=== PATIENT | male | born 1990 | race Caucasian/White ===

== ENCOUNTER 2023-10-05 13:45 | Emergency (ER) | payer OTHER, SELFPAY ==
[2023-10-05 13:50] VITALS: BP 158/64; PULSE 101; RESP 16; TEMP 36.4; O2SAT 98
--- OUTSIDE RECORDS SUMMARY | 2023-10-05 14:46 | XMS_ITS | Encounter Summary ---
Author Name [facility] [place] [facility] [place] [facility] [place] Address [address] [place] [address] Care Team Providers Care Alcoholism Worker Name Role Phone LAYTON GARCIA Primary Care Provider Unavailabl e Insurance Providers: All historical and current Section Date Range: From patient's date of to the date document was created. This section includes the names of all active insurance providers for the patient. Insurance Provider Type of Coverage Plan Name Start of Policy Coverage End of Policy Coverage Group Number Member ID Insurance Provider's Telephone Number Policy Senior's Name Patient's Relationship to Policy Senior IS[employer] MED[employer] EXPENSE (OPT/PROF ) F.W. ROBLEDO [place] Dec 18, 2020 [id number] [phone] CLAYTONTAZ PATIENT [employer] MENTAL HEALTH F.W. ROBL[place] Dec 18, 2020 [id number] CLAYTONTAZ PATIENT [employer] PRESCRIPT ION RX Dec 18, 2020 [id number] [phone] CLAYTONTAZ PATIENT Selected Encounter This section includes the information on record at [place] for the Encounter. Date/Time Encounter Type Encounter Description Reason Provider Source Sep 27, 2023 02:08 PM Outpatient Encounter [facility] KWAN DAHL IHParrish Encounter Template Text not used by [place] Plan of Treatment: Future Appointments (+ 6 months) and Future Tests (+/- 45 days) The Plan of Treatment section includes future care activities for the patient from all [place] treatmentfacilities. This section includes future appointments and future orders which are active, pending or scheduled. Future Appointments This section includes appointments that were scheduled to occur 6 months from the date of the Encounter, up to a maximum of 20 appointments. The data comes from all [place] treatment facilities. Appointment Date/Time Appointment Type Appointme nt Facility Name Dec 06, 2023 02:00 PM AMBULATORY - MEDICINE [facility] Active, Pending, and Scheduled Orders This section includes a listing of several types of active, pending, and scheduled orders, including clinic medications orders, diagnostic test orders, procedure orders and consult orders; where the start date of the order is 45 days before the date of the Encounter or 45 days after the date of theEncounter. The data comes from all [place] treatment facilities. Test Date/Time Test Type Test Details Facility Name Sep 18, 2023 12:00 AM Laboratory - Chemi stry Order LIVER PROFILE LT GREEN(LI HEP) PLASMA SP [facility] Encounter Notes: All associated encounter notes This section contains the clinical notes associated to the Encounter. Date/Time Encounter Note(s) Provider Source Sep 27, 2023 02:08 PM MENTAL HEALTH DIAG NOSTIC STUDY NOTE: LOCAL TITLE: Mental Health Diagnostic Study Note STANDARD TITLE: MENTAL HEALTH DIAGNOSTIC STUDY NOTE DATE OF NOTE: SEP 27, 2023@14:08:18 ENTRY DATE: SEP 27, 2023@14:08:18 AUTHOR: KWAN POSADAS EXP COSIGNER: URGENCY: STATUS: COMPLETED Generalized Anxiety Disorder, 7 items Date Given: 09/27/2023 Clinician: Kwan Posadas Location: [place] [address] [place]: Taz Collins SSN: [id number] : [birth year] (32) Gender: Man ALEX-7 score: 8 A low score indicates the absence of anxiety, a high score indicates the presence of anxiety symptoms; the range is 0 to 21. A score of 15 or greater is considered clinically significant, meriting active treatment for anxiety. A score of 10 to 14 indicates a condition that should be carefully evaluated. Questions and Answers 1. Feeling nervous, anxious or on edge Several days 2. Not being able to stop or control worrying Not at all 3. Worrying too much about different things Not at all 4. Trouble relaxing Nearly every day 5. Being so restless that it is hard to sit still Several days 6. Becoming easily annoyed or irritable Nearly every day 7. Feeling afraid as if something awful might happen Not at all Information contained in this note is based on a self-report assessment and is not sufficient to use alone for diagnostic purposes. Assessment results should be verified for accuracy and used in conjunction with other diagnostic activities and procedures. /karla/ CHILO VIVAS Corner Cutter Machine Operator Signed: 09/27/2023 14:08 KWAN POSADAS [facility]
--- OUTSIDE RECORDS SUMMARY | 2023-10-05 14:46 | XMS_ITS | Encounter Summary ---
Author Name [facility] [place] [facility] [place] [facility] [place] Address [address] [place] [address] Care Team Providers Care Medical Donation Professional Name Role Phone LAYTON GARCIA Primary Care [...] MEDICAL EXPENSE (OPT/PROF ) F.W. [place] Dec 18, 2020 [id number] CLAYTONTAZ PATIENT [employer] MENTAL HEALTH [place]. [place] Dec 18, 2020 [id number] [phone] TAZ ARNOLD PATIENT [employer] PRESCRIPT ION RX Dec 18, 2020 [id number] TAZ ARNOLD PATIENT Selected Encounter This section includes the information on record at [place] for the Encounter. Date/Time Encounter Type Encounter Description Reason Pro vider Source August 07, 2023 09:30 AM Outpatient Encounter [facility] INDIV IHE Encounter Template Text not used by [facility] Plan of Treatment: Future Appointments (+ 6 months) and Future Tests (+/- 45 days) The Plan of Treatment section includes future care activities for the patient [facility] [place] [facility] This section includes future appointments and future orders which are active, pending or scheduled. Future Appointments This section includes appointments that were scheduled to occur 6 months from the date of the Encounter, up to a maximum of 20 appointments. The data comes from all [place] treatment facilities. Appointment Date/Time Appointment Type Appointme nt Facility Name August 18, 2023 09:00 AM [facility] Sep 04, 2023 01:00 PM AMBULATORY - PSYCHIATRY [facility] Sep 27, 2023 10:00 AM AMBULATORY - MEDICINE [facility] Sep 27, 2023 02:00 PM AMBULATORY - PSYCHIATRY [facility] Dec 06, 2023 02:00 PM AMBULATORY - MEDICINE [facility] Active, Pending, and Scheduled Orders This section includes a listing of several types of active, pending, and scheduled orders, including clinic medications orders, diagnostic test orders, procedure orders and consult orders; where the start date of the order is 45 days before the date of the Encounter or 45 days after the date of theEncounter. The data comes from all [facility]. Test Date/Time Test Type Test Details Facility Name Sep 18, 2023 12:00 AM Laboratory - Chemi stry Order LIVER PROFILE LT GREEN(LI HEP) PLASMA SP [facility] Lab Results: +/- 30 days of the encounter This section includes the Chemistry and Hematology Lab Results on record with [facility] for the patient. Radiology Reports and Pathology Reports are provided separately, in subsequent sections. Lab Results This section contains the Chemistry/Hematology Results that were resulted 30 days before or 30 daysafter the date of the Encounter. Date/Time Source Result Type Result - Unit Interpretation Reference Range Comment Jul 11, 2023 10:00 AM [facility] HEP B CORE,TOTAL(W) Specimen Type: SERUM Comment: A 'Reactive' result indicates HBsAb results >/= 12.0 mIU/mL and immunity to HBV infection. This test detects both IgG and IgM antibodies. A Reactive result (Positive prior to 12/31/12) may indicate either current or previous hepatitis B infection. Antibodies to Hepatitis B Core may be the only marker of recent hepatitis B infection during the window period when Hepatitis B surface antigen has disappeared and Hepatitis B surface antibodies are not yet detectable. Ordering Provider: LAYTON GARCIA Report Released Date/Time: Jun 26, 2023 11:56 AM Reporting Lab: [facility] [address] [facility] [address] Performing Lab: [facility] [address] [facility] [address] HEP B CORE,TOTAL(W ) Non Reactive Non Reactive Jul 11, 2023 10:00 AM [facility] HBSAG PANEL WITH REFLEX CONFIRMATION(WH) Specimen Typ e: SERUM Comment: A Reactive result (Positive prior to 12/31/12) is diagnostic of acute or chronic hepatitis B infection. The presence of Hepatitis B surface antigen is frequently associated with infectivity. Ordering Provider: LAYTON GARCIA Report Released Date/Time: Jun 26, 2023 11:56 AM Reporting Lab: [facility] [address] [address] Performing Lab: [facility] [address] [facility] [address] HEP B SURFACE AG(wh) Non Reactive Non Reactive Jul 11, 2023 10:00 AM [facility] HEP B SURF AB(W) Specimen Type: SERUM Comment: A 'Reactive' result indicates HBsAb results >/= 12.0 mIU/mL and immunity to HBV infection. This test detects both IgG and IgM antibodies. A Reactive result (Positive prior to 12/31/12) may indicate either current or previous hepatitis B infection. Antibodies to Hepatitis B Core may be the only marker of recent hepatitis B infection during the window period when Hepatitis B surface antigen has disappeared and Hepatitis B surface antibodies are not yet detectable. Ordering Provider: LAYTON GARCIA Report Released Date/Time: Jun 26, 2023 11:56 AM Reporting Lab: [facility] [address] [facility] [address] Performing Lab: [facility] [address] [facility] [address] HEP B SURF AB(W) REACTIVE Non Reactive Jul 11, 2023 10:00 AM [facility] HEPATITIS C AB(WRJ)w/Reflex Specimen Type: SERUM Comment: , Tests performed on Curtis Teros Alfaro [id number] (405) No HCV antibody detected. If recent infection is suspected or other evidence suggests HCV infection, consider HCV RNA testing Ordering Provider: LAYTON GARCIA Report Released Date/Time: Jun 26, 2023 11:56 AM Reporting Lab: [facility] [address] [facility] [address] Performing Lab: [facility] [address] [address] HEPATITIS C AB(WRJ)w/Ref ria Non-Reactive Non-Reactive Jul 11, 2023 10:00 AM [facility] IRON+TIBC(P) Specimen Type: PLASMA Comment: , Tests performed on [employer] [id number] (405). Ordering Provider: LAYTON GARCIA Report Released Date/Time: Jun 26, 2023 11:56 AM Reporting Lab: [facility] [address] [address] Performing [facility] [address] [facility] [address] IRON 90 ug/dL 40-160 TIBC 318 ug/dL IRON SATURATION(P ) 28 >15 UIBC(P) 228 ug/dL 126-382 Encounter Notes: All associated encounter notes This section contains the clinical notes associated to the Encounter. Date/Time Encounter Note(s) Provider Source August 07, 2023 09:30 AM MENTAL HEALTH ADMI NISTRATIVE NOTE: LOCAL TITLE: Administrative Note/Mental Health STANDARD TITLE: MENTAL HEALTH ADMINISTRATIVE NOTE DATE OF NOTE: AUGUST 07, 2023@09:30 ENTRY DATE: AUGUST 07, 2023@09:30:48 AUTHOR: KWAN SALOMON EXP COSIGNER: URGENCY: STATUS: COMPLETED Spoke to Greer over phone. He apologized for missing appt last week on 08/03. We rescheduled psychotherapy appt for 08/17 at 9am. No safety concerns noted based on brief t/c. /karla/ CHILO VIVAS Pharmacy Innovation Assistant Signed: 08/07/2023 09:31 KWAN SALOMON [facility]
--- OUTSIDE RECORDS SUMMARY | 2023-10-05 14:46 | XMS_ITS ---
Author Name [facility] [place] [facility] [place] [facility] [place] Address [address] [place] [address] Care Team Providers Care [employer] Equipment Operator Name Role Phone LAYTON GARCIA Primary Care [...] Senior's Name Patient's Relationship to Policy Senior [employer] (OPT/PROF ) F.W. ROBLEDO [place] Dec 18, 2020 [id number] TAZ ARNOLD PATIENT [employer] MENTAL HEALTH F.W. [place] Dec 18, 2020 [id number] TAZ ARNOLD PATIENT [employer] PRESCRIPT ION RX Dec 18, 2020 [id number] TAZ ARNOLD PATIENT Selected Encounter This section includes the information on record at [place] for the Encounter. Date/Time Encounter Type Encounter Description Reason Pro vider Source Oct 02, 2023 12:58 PM Outpatient Encounter ADMIN PAT ACTIVTIES (MASNONCT) IHE Encounter Template Text not used by [place] Plan of Treatment: Future Appointments (+ 6 months) and Future Tests (+/- 45 days) The Plan of Treatment section includes future care activities for the patient from all [place] [facility]. This section includes future appointments and future orders which are active, pending or scheduled. Future Appointments This section includes appointments that were scheduled to occur 6 months from the date of the Encounter, up to a maximum of 20 appointments. The data comes from all [place] treatment facilities. Appointment Date/Time Appointment Type Appointme nt Facility Name Dec 06, 2023 02:00 PM AMBULATORY - MEDICINE [facility] Active, Pending, and Scheduled Orders This section includes a listing of several types of active, pending, and scheduled orders, including clinic medications orders, diagnostic test orders, procedure orders and consult orders; where the start date of the order is 45 days before the date of the Encounter or 45 days after the date of theEncounter. The data comes from all [place] treatment facilities. Test Date/Time Test Type Test Details Facility Name Sep 18, 2023 12:00 AM Laboratory - Chemi stry Order LIVER PROFILE LT GREEN(LI HEP) PLASMA SP [facility] Encounter Notes: All associated encounter notes This section contains the clinical notes associated to the Encounter. Date/Time Encounter Note(s) Provider Source Oct 02, 2023 12:58 PM ADMINISTRATIVE NOT E: LOCAL TITLE: CCC: SCHEDULING ADMINISTRATION STANDARD TITLE: ADMINISTRATIVE NOTE DATE OF NOTE: OCT 02, 2023@12:58:45 ENTRY DATE: OCT 02, 2023@12:58:45 AUTHOR: PRABHJOT LYNNE COSIGNER: URGENCY: STATUS: COMPLETED CCC: SCHEDULING ADMINISTRATION Has ADDENDA Patient Demographics Patient Name: ATZ ARNOLD Patient Primary Phone: [phone] Patient Primary [address]: [address] [place] [id number] Patient : 1990 Patient Age: 32 Caller/Recipient Relation to Patient: Self Administrative Administrative Note Reason: Other Administrative Note Comments: Triage Symptom call for left knee pain (no injury noted). Recommendation was face 2 face with PCP within 24 hours. No appointments available. was given Urgent Care as a backup and will be going to Urgent Care to have left knee looked at. /karla/ PRABHJOT LYNNE VISN1 CCC AMSA Signed: 10/02/2023 12:58 Receipt Acknowledged By: 10/02/2023 13:05 /es/ RISHI PANDA LPN 10/03/2023 10:23 /es/ ZAIRE LYNCH Registered Nurse 10/03/2023 ADDENDUM STATUS: COMPLETED Message is left requesting call back. FU on visit. /karla/ ZAIRE LYNCH Registered Nurse Signed: 10/03/2023 10:23 PRABHJOT LYNNE T [facility]AM[facility]
--- OUTSIDE RECORDS SUMMARY | 2023-10-05 14:46 | XMS_ITS | Continuity of Care Document ---
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 [facility]) [facility], [place], [facility]) OUTPATIENT [id number] RISHI Amezquita 02/16 Released w/o Limitations [facility], Myn[place] , [facility](Wind er [facility]) [facility] OUTPATIENT [id number] 07/16 Released w/o Limitations Theater Facilit y [facility] [place], [place] d Traumatic Brain Injury) OUTPATIENT [id number] initial appt ED SZYMANSKI 02/24 Released w/o Limitations [facility] [place], [place](Irel and Traumat ic Brain Injury) [facility] Outpatient Encounter [id number] 11/01 [facility] Outpatient Encounter [id number] 02/22 [facility] Outpatient [facility]counter [id number] 03/01 [facility] Outpatient Encounter [id number] 03/07 [facility] OFFICE O/P NEW SF 15-29 MIN [id number] Diagnos is: ICD-10- CM E66.3 Overwei ght<br/ > RADHA,CHUNG GILBERTO L 03/08 [facility] PSYTX W PT 30 MINUTES [id number] Diagnos is: ICD-10- CM F43.20 Adjustm ent disorde r, unspeci fied
RUPALI FRANCO 03/21 [facility] OFFICE O/P NEW MOD 45 MIN [id number] Diagnos is: ICD-10- CM F41.9 Anxiety disorde r, unspeci fied
RADHA,CHUNG GILBERTO L 03/30 [facility] OFFICE O/P EST LOW 20 MIN [id number] Diagnos is: ICD-10- CM F41.9 Anxiety disorde r, unspeci fied
RADHA,CHUNG GILBERTO L 06/15 [facility] Outpatient Encounter [id number] 07/09 [facility] Outpatient Encounter [id number] Diagnos is: ICD-10- CM F41.9 Anxiety disorde r, unspeci fied
RADHA,CHUNG GILBERTO L 07/11 [facility] Outpatient Encounter [id number] 07/23 [facility] Outpatient Encounter [id number] 07/25 [facility] [place] [id number] Diagnos is: ICD-10- CM E66.3 Overwei ght<br/ > MOIZNIYAH L D 08/01 [facility] Outpatient Encounter [id number] 08/03 [facility] Outpatient Encounter [id number] 08/06 [facility] PSYCH DIAGNOSTIC EVALUATION [id number] Diagnos is: ICD-10- CM F41.9 Anxiety disorde r, unspeci fied
ROSI SLAOMON 08/17 [facility] PSYTX W PT 45 MINUTES [id number] [id number] Diagnos is: ICD-10- CM F41.9 Anxiety disorde r, unspeci fied
ROSI SALOMON 09/03 [facility] Outpatient Encounter [id number] Diagnos is: ICD-10- CM F41.9 Anxiety disorde r, unspeci fied
RADHA,CHUNG GILBERTO L 09/26 [facility] PSYTX W PT 45 MINUTES [id number] Diagnos is: ICD-10- CM F41.9 Anxiety disorde r, unspeci fied
ROSI SALOMON 09/26 [facility] Outpatient Encounter [id number] ROSI SALOMON J 09/26 [facility] Outpatient Encounter [id number] 10/01 [facility] Outpatient Encounter [id number] 10/01 [facility] Procedures Combined list of: 1) Procedures from Department of Veterans Affairs facilities going back up to thelast 18 months, not all VA non-surgical procedures are included; 2) All procedures from the Department of Defense facilities. Procedure Procedure Type Code Date Perfomer Comments Sourc e PURE TONE AUDIOMETRY (THRESHOLD); AIR ONLY 0 [facility] CASE MANAGEMENT, EACH 15 MINUTES 0 [facility] ANTHRAX VACCINE, FOR SUBCUTANEOUS OR INTRAMUSCULAR USE 0 [facility] SKIN TEST; TUBERCULOSIS, INTRADERMAL 0 [facility] SKIN TEST; TUBERCULOSIS, INTRADERMAL 9 [facility] AUDIOMETRIC TESTING OF GROUPS 9 [facility] OPHTHALMOLOGICAL SERVICES: MEDICAL EXAMINATION AND EVALUATION WITH INITIATION OF DIAGNOSTIC AND TREATMENT PROGRAM; COMPREHENSIVE, NEW PATIENT, 1 OR MORE VISITS 9 [facility] Patient Counseling Medical Management Individual Patient Patient Counseling Medical Management Individual Patient [phone] [phone] ED SZYMANSKI [facility] Ophthalmological New Patient Start Comprehensive Care Ophthalmological New Patient Start Comprehensive Care [id number] [phone] CELIA OLMOS [facility] Determination Of Refractive State Determination Of Refractive State 13846 9 CELIA OLMOS [facility] Spectacles Services Fitting Monofocal Except For Aphakia Spectacles Services Fitting Monofocal Except For Aphakia 54753 9 CELIA OLMOS [facility] Tdap Vaccine Tdap Vaccine 24629 9 ALDEN ZULETA Meningococcal Polysaccharide Diphtheria Toxoid Conjugate Vaccine 9 ALDEN ZULETA DoD Vaccines Viral Polio, Inactivated Vaccines Viral Polio, Inactivated 13459 9 ALDEN ZULETA [facility] Skin Test Anergy Tuberculin Intradermal Skin Test Anergy Tuberculin Intradermal 41325 9 ALDEN ZULETA [facility] Venipuncture Venipuncture 08036 9 ALDEN ZULETA Immunization Administration By Injection, Each Additional Vaccine 9 ALDEN ZULETA [facility] Immunization Administration By Injection, One Vaccine Immunization Administration By Injection, One Vaccine 46058 9 ALDEN ZULETA [facility] Physician Supervised Injection Intramuscular Antibiotic Physician Supervised Injection Intramuscular Antibiotic 60373 9 ALDEN ZULETA [facility] Hepatitis A Vaccine Adult Dosage (Intramuscular Use) Hepatitis A Vaccine Adult Dosage (Intramuscular Use) 36174 9 ALDNE ZULETA [facility] Audiometry Group Testing Audiometry Group Testing 13412 9 MARVIN MONSALVE [facility] Social History Combined list of available smoking, tobacco, and other social history from Department of Defense and Veterans Affairs facilities. Social History Type Response Date Comment Sourc e Tobacco smoking status WVIS VA-TOBACCO FORMER USER 03/30/2023 [facility] History of tobacco use VA-TOBACCO QUIT 5 TO < 15 YRS 03/30/2023 [facility] This section is an empty social history section. [facility] Plan of Care List of future care activities from Department of Veterans Affairs facilities. Additional future care activities may be listed in the Assessment and Plan section. Date/Time Care Activity Care Activity Detail Facili ty 12/06/2023 AMBULATORY - MEDICINE AMBULATORY - MEDICI NE [facility] 09/18/2023 Laboratory - Head Start Director ry Order LIVER PROFILE LT GREEN(LI HEP) PLASMA SP [facility]
--- OUTSIDE RECORDS SUMMARY | 2023-10-05 14:46 | XMS_ITS | Encounter Summary ---
Author Name [facility] [place] [facility] [place] Address [address] [place] [address] Care Team Providers Care Component Assembler Supervisor Name Role Phone LAYTON GARCIA Primary Care [...] Senior's Name Patient's Relationship to Policy Senior [employer] (OPT/PROF ) F.W. ROBL[place] Dec 18, 2020 [id number] C[place]TONTA[place] PATIENT [employer] MENTAL HEALTH F.W. ROBLEDO [place] Dec 18, 2020 [id number] TAZ ARNOLD PATIENT [employer] Dec 18, 2020 [id number] TAZ ARNOLD PATIENT Selected Encounter This section includes the information on record at [place] for the Encounter. Date/Time Encounter Type Encounter Description Reason Provider Source Sep 27, 2023 02:00 PM PSYTX W PT 45 MINUTES [facility] INDIV ICD-10-CM F41.9 Anxiety disorder, unspecified KWAN SALOMON Encounter Template Text not used by VA Assessments - Encounter Diagnoses This section includes the primary and secondary diagnoses documented for the Encounter. Date/Time Primary/Secondary Diagnosis Diagnosis Name Provider Source Sep 27, 2023 03:55 PM PRIMARY Anxiety disorder, unspecified KWAN SALOMON [facility] Plan of Treatment: Future Appointments (+ 6 months) and Future Tests (+/- 45 days) The Plan of Treatment section includes future care activities for the patient from [facility] [place] [facility]. This section includes future appointments and future orders which are active, pending or scheduled. Future Appointments This section includes appointments that were scheduled to occur 6 months from the date of the Encounter, up to a maximum of 20 appointments. The data comes from all [place] treatment facilities. Appointment Date/Time Appointment Type Appointme nt Facility Name Dec 06, 2023 02:00 PM AMBULATORY - MEDICINE [facility] Active, Pending, and Scheduled Orders This section includes a listing of several types of active, pending, and scheduled orders, including clinic medications orders, diagnostic test orders, procedure orders and consult orders; where the start date of the order is 45 days before the date of the Encounter or 45 days after the date of theEncounter. The data comes from all [facility]. Test Date/Time Test Type Test Details Facility Name Sep 18, 2023 12:00 AM Laboratory - Chemi stry Order LIVER PROFILE LT GREEN(LI HEP) PLASMA SP [facility] Social History: Smoking Status (Most current) and Tobacco Use (All prior to encounter date) This section includes the most current, and the historical, smoking and tobacco- related health factors from the [place] facility where the Encounter took place. Current Smoking Status This section includes the most current smoking, or tobacco-related health factor, from the [place] facility where the Encounter took place. Date/Time Current Smoking Status Comment Facil ity Mar 30, 2023 01:30 PM VA-TOBACCO FORMER USER [facility] Tobacco Use History This section includes a history of the smoking, or tobacco-related health factors, that were collected on or before the date of the Encounter. The data comes from the [place] facility where the Encounter took place. Date/Time Smoking Status/Tobacco Use Comment F acility Mar 30, 2023 01:30 PM [place] QU[place] 5 TO < 15 YRS [facility] Encounter Notes: All associated encounter notes This section contains the clinical notes associated to the Encounter. Date/Time Encounter Note(s) Provider Source Sep 27, 2023 03:01 PM [facility]: LOCAL TITLE: [facility] Note STANDARD TITLE: MENTAL HEALTH OUTPATIENT NOTE DATE OF NOTE: SEP 27, 2023@15:01 ENTRY DATE: SEP 27, 2023@15:01:04 AUTHOR: KWAN SALOMON EXP COSIGNER: URGENCY: STATUS: COMPLETED [facility] Psychotherapy Note Time spent with : 20-30 minutes Session number: 3 Diagnosis: r/o Generalized Anxiety d/o, and intermittent explosive d/o, problems in relationship with partner. Reason for visit: Supportive therapy, Brief [facility] therapy Summary of Session: Met with Taz for scheduled session. He spoke about some interactions between he and his spouse that were somewhat contentious. He sees the household. work. school, and parenting demands as being unequally distributed amongst he and his spouse. We discussed communication strategies, assertive communication, as well as engaged in some problem solving around this; inviting his spouse to collaboratively create a schedule/routine for the both of them. Agreed to reconnect 10/13/23 at 2pm. ASSESSMENT OF DANGER TO SELF: No significant risk. ASSESSMENT OF SUICIDE RISK: Denies active thoughts, intent, or plan for suicide and therefore would rate acute suicide risk as low. He has no hx of attempts. He identifies his /kids as protective factors. Verbalizes willingness to seek help/support if ever experiencing thoughts of suicide. given this data would rate chronic suicide risk as low at this time. ASSESSMENT OF DANGER TO OTHERS: No significant risk. ASSESSMENT OF HOMICIDE RISK: Low Recommendations/Treatment Plan: Psychotherapy; continue to develop treatment plan; provisional focus on anger, irritability, emotional awareness/regulation. /karla/ CHILO VIVAS Survey Data Technician Signed: 09/27/2023 15:55 KWAN SALOMON [facility]
--- OUTSIDE RECORDS SUMMARY | 2023-10-05 14:46 | XMS_ITS ---
[place] MEDICAL NUTRITION INDIV IN [facility] Encounter Summary Created on: October 05, 2023 LESLY ARNOLDD TATIANA : 1990 Sex: Male Author Name [facility] [place] Organization [place] Address [address] [place] [address] Care Team Providers Care Greenhouse Manager Name Role Phone LAYTON GARCIA Primary Care [...] Senior's Name Patient's Relationship to Policy Senior [employer] (OPT/PROF ) F.W. ROBLEDO MALENA MS Dec 18, 2020 [id number] CLAYTONTAZ PATIENT [employer] MENTAL HEALTH F.W. ROBLEDO MALENA MS Dec 18, 2020 [id number] [phone] CLAYTONTAZ PATIENT MAXORPLUS PRESCRIPT ION RX Dec 18, 2020 [id number] TAZ ARNOLD PATIENT Selected Encounter This section includes the information on record at [place] for the Encounter. Date/Time Encounter Type Encounter Description Reason Provider Source August 02, 2023 01:00 PM MEDICAL NUTRITION INDIV IN NUTRITION/DIETETI CS-INDIVIDUAL ICD-10-CM E66.3 Overweight JAIME ROCKWELL E Encounter Template Text not used by [place] Assessments - Encounter Diagnoses This section includes the primary and secondary diagnoses documented for the Encounter. Date/Time Primary/Secondary Diagnosis Diagnosis Name Provider Source August 02, 2023 03:56 PM PRIMARY Overweight JAIME ROCKWELL [facility] August 02, 2023 03:56 PM SECONDARY Dietary counseling and surveillance JAIME ROCKWELL [facility] Plan of Treatment: Future Appointments (+ 6 months) and Future Tests (+/- 45 days) The Plan of Treatment section includes future care activities for the patient from all [place] treatmentfacilities. This section includes future appointments and future orders which are active, pending or scheduled. Future Appointments This section includes appointments that were scheduled to occur 6 months from the date of the Encounter, up to a maximum of 20 appointments. The data comes from all [place] treatment facilities. Appointment Date/Time Appointment Type Appointme nt Facility Name August 04, 2023 09:00 AM AMBULATORY - PSYCHIATRY [facility] August 18, 2023 09:00 AM AMBULATORY - PSYCHIATRY [facility] Sep 04, 2023 01:00 PM AMBULATORY - PSYCHIATRY [facility] Sep 27, 2023 10:00 AM AMBULATORY - MEDICINE [facility] Sep 27, 2023 02:00 PM AMBULATORY - PSYCHIATRY [facility] Dec 06, 2023 02:00 PM AMBULATORY - MEDICINE [facility] Lab Results: +/- 30 days of [...] Range Comment Jul 11, 2023 10:00 AM [facility] CORE,TOTAL(W) Specimen Type: SERUM Comment: [...] 11:56 AM Reporting Lab: [facility] [address] [facility] [address] Performing Lab: [facility] [address] [address] HEP B CORE,TOTAL(W ) Non Reactive Non Reactive Jul 11, 2023 10:00 AM [facility] HBSAG PANEL WITH REFLEX CONFIRMATION(WH) Specimen Typ e: SERUM Comment: A Reactive result (Positive prior to 12/31/12) is diagnostic of acute or chronic hepatitis B infection. The presence of Hepatitis B surface antigen is frequently associated with infectivity. Ordering Provider: LAYTON GARCIA Report Released Date/Time: Jun 26, 2023 11:56 AM Reporting Lab: [facility] [address] [facility] [address] Performing Lab: [facility] [address] [address] HEP B SURFACE AG(wh) Non Reactive Non Reactive Jul 11, 2023 10:00 AM [facility] HEP B SURF AB(W) Specimen Type: [...] 11:56 AM Reporting Lab: [facility] [address] [facility] [address] Performing Lab: [facility] [address] [address] HEP B SURF AB(W) REACTIVE Non Reactive Jul 11, 2023 10:00 AM [facility] HEPATITIS C AB(WRJ)w/Reflex Specimen Type: SERUM Comment: , Tests performed on [employer] [id number] (405) No HCV antibody detected. If recent infection is suspected or other evidence suggests HCV infection, consider HCV RNA testing Ordering Provider: LAYTON GARCIA Report Released Date/Time: Jun 26, 2023 11:56 AM [facility] [address] [facility] [address] [facility] [address] [facility] [address] HEPATITIS C AB(WRJ)w/Ref ria Non-Reactive Non-Reactive Jul 11, 2023 10:00 AM [facility] CB IRON+TIBC(P) Specimen Type: PLASMA Comment: , Tests performed on [employer] [id number] (405). Ordering Provider: LAYTON GARCIA Report Released Date/Time: Jun 26, 2023 11:56 AM Reporting Lab: [facility] [address] [facility] [address] [facility] [address] [facility] [address] IRON 90 ug/dL 40-160 TIBC 318 ug/dL IRON SATURATION(P ) 28 >15 UIBC(P) 228 ug/dL 126-382 Encounter Notes: All associated encounter notes This section contains the clinical notes associated to the Encounter. Date/Time Encounter Note(s) Provider Source August 02, 2023 08:32 AM NUTRITION DIETETIC S CONSULT: LOCAL TITLE: CONSULT: Nutrition STANDARD TITLE: NUTRITION DIETETICS CONSULT DATE OF NOTE: AUGUST 02, 2023@08:32 ENTRY DATE: AUGUST 02, 2023@08:33:03 AUTHOR: JAIME ROCKWELL COSIGNER: URGENCY: STATUS: COMPLETED Patient has consented to receive this care by telehealth and provided/confirmed current location and phone number; an emergency contact number was also obtained/confirmed. T/w introduced self and confirmed all parties in the room. Pt appeared to be in a safe and private environment. IMPORTANT CONTACT INFO: 1. If patient does utilize local [facility] services: a) [place] E911 [phone] 2. [place] [employer] Help Desk - [phone] Reason for consult: Overweight(ICD-10-CM E66.3) Reason For Request: healthier diet and weight loss Person sending consult: Layton Garcia Time spent: 60 mins Dx: z71.3 dietary counseling and surveillance, E66.3 overweight Assessment: SUBJECTIVE: reports that he has been fighting with some GI issues and he assumes it's due to poor food choices, eating out a lot and lots of takeout. He is looking for more guidance towards preventing weight gain and overall healthy diet. BARRIERS TO LEARNING INCLUDE: none identified Appetite: good N/V/D/C: Multiple 5 BM's per day, has been consistent over the years Difficulty chewing/swallowing: no Previous Dx dysphagia: no Pertinent PMHx: Reviewed Anxiety Overweight Pertinent Meds: Reviewed Active Outpatient Medications Status 1) CHOLECALCIF 50MCG (D3-2,000UNIT) TAB TAKE ONE TABLET ACTIVE (S) BY MOUTH ONCE DAILY FOR VITAMIN D DEFICIENCY WHEN HIGH DOSE COMPLETE 2) ERGOCALCIF 1,250MCG (D2-50,000UNIT) CAP TAKE ONE ACTIVE CAPSULE BY MOUTH ONCE A WEEK FOR VITAMIN D DEFICIENCY FOR 13 WEEKS Vitamins: Emergen-C gummies Pertinent Labs: HGB A1C: 5.1 (06/16/23 10:15) CHOL: 200 (06/16/23 10:15) HDL: 45 (06/16/23 10:15) LDL: 104 (06/16/23 10:15) TRI (06/16/23 10:15) VIT D 25-OH 14.0 L ng/mL (06/16/23) Nutrition Vitals Height:70 in [177.8 cm] (06/16/2023 09:26) Weight: 220 lb [99.79 kg] (06/16/2023 09:26) BODY MASS INDEX - JUN 16, 2023@09:26:07 31.6 IBW:166 133% IBW Adjusted BW: 180 lbs +/-10% Food Recall: B- breakfast sandwich from [employer]: engl muffin/egg/sausage occasionally cereal at home: cheerios vanilla w/ lactaid water 10-11am: package gummies or PB crackers L- skips during summer pm snack: gummies or PB crackers or granola bar D- Sausage/eggs/hollondaise sauce/2 toast OR sweedish meatballs, tacos, cereal Take out 3-4 times a week: KFC takeout, McDonalds/BK, Subway evening snack: candy, chocolates, rice krispie treats Beverages- Red Bull 1-4 per day, water, occasional powerade, occasional soda mixer with Etoh ETOH/Smoking: has cut back on etoh lately, one drink per week Social: goes home for lunch but doesn't eat, lives with girlfriend and kids. Girlfriend does the cooking and shopping. Exercise: no regular activity, yard work during lunch break COMPREHENSION/MOTIVATION TO LEARN IS ASSESSED : [ x] GOOD NUTRITION-FOCUSED PHYSICAL EXAM/ASSESSMENT Pt appears well nourished Estimated Nutrition Needs: Calories: 9957-9266 kcals (20-25 kcal/kg ABW) Protein: 80 g (1g/kg ABW) Nutrition Diagnosis: Obesity class I Related to: caloric intake exceeds needs As evidenced by: BMI 31 Etiology: behavior INTERVENTION: Nutrition Rx Healthy Diet Nutrition Education Healthy Plate Health benefits of whole food diet Nutrition Counseling [place] is interested in healthy diet for health promotion/prevention and to prevent weight gain. He is not necessarily interested in losing weight. Discussed overall healthy diet and lifestyle for health promotion and encouraged more whole foods, less processed/fast foods, and increased activity level. Emplasized benefits of healthy lifestyle for him and his young family to have more home cooked meals and snacks made from whole foods. feels he knows what to do and just needs to start doing it. Not interested in follow up at this time and is aware of nutrition and MOVE services if he is interested in the future. ME: Nutrition and Lifestyle goals: - will increase fruits and vegetables to 2-3 servings per day - will Anthropometric Measurement Outcomes: Weight loss of 1/2-2 lbs per week Recommended f/u: No follow up at this time /karla/ JAIME ROCKWELL MS, RD Clinical Dietitian Signed: 08/02/2023 16:03 JAIME ROCKWELL [facility]
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
--- OUTSIDE RECORDS SUMMARY | 2023-10-05 14:46 | XMS_ITS | Encounter Summary ---
Author Name [place] Address [address] [place] [address] Care Team Providers Care Staff Consultant Name Role Phone LAYTON GARCIA Primary Care [...] Policy Senior [employer] EXPENSE (OPT/PROF ) F.WAnam ROBLEDO [place] Dec 18, 2020 [id number] LESLY ARNOLDD PATIENT [employer] MENTAL HEALTH F.WAnam ROBLEDO [place] Dec 18, 2020 [id number] [phone] LESLY ARNOLDD PATIENT MAXORPLUS PRESCRIPT ION RX Dec 18, 2020 [id number] LESLY ARNOLDD PATIENT Selected Encounter This section includes the information on record at [place] for the Encounter. Date/Time Encounter Type Encounter Description Reason Pro vider Source Oct 02, 2023 01:00 PM Outpatient Encounter TELEPHONE TRIAGE IHE Encounter Template Text not used by VA Plan of Treatment: Future Appointments (+ 6 months) and Future Tests (+/- 45 days) The Plan of Treatment section includes future care activities for the patient from all [facility]. This section includes future appointments and future orders which are active, pending or scheduled. Future Appointments This section includes appointments that were scheduled to occur 6 months from the date of the Encounter, up to a maximum of 20 appointments. The data comes from all [facility] facilities. Appointment Date/Time Appointment Type Appointme nt Facility Name Dec 06, 2023 02:00 PM AMBULATORY - MEDICINE [facility] Active, Pending, and Scheduled Orders This section includes a listing of several types of active, pending, and scheduled orders, including clinic medications orders, diagnostic test orders, procedure orders and consult orders; where the start date of the order is 45 days before the date of the Encounter or 45 days after the date of theEncounter. The data comes from all [facility] facilities. Test Date/Time Test Type Test Details Facility Name Sep 18, 2023 12:00 AM Laboratory - Chemi stry Order LIVER PROFILE LT GREEN(LI HEP) PLASMA SP [facility] Encounter Notes: All associated encounter notes This section contains the clinical notes associated to the Encounter. Date/Time Encounter Note(s) Provider Source Oct 02, 2023 01:00 PM RN PROGRESS NOTE: LOCAL TITLE: CCC: CLINICAL TRIAGE STANDARD TITLE: RN PROGRESS NOTE DATE OF NOTE: OCT 02, 2023@13:00:32 ENTRY DATE: OCT 02, 2023@13:00:32 AUTHOR: TRINIDAD MARAVILLA COSIGNER: URGENCY: STATUS: COMPLETED CCC: CLINICAL TRIAGE Has ADDENDA Patient Demographics Patient Name: TAZ ARNOLD Patient Primary Address: [address] [place] [address] Patient Primary Phone: [phone] Patient : 1990 Patient Age: 32 Call Back Number: [phone] Caller/Recipient Relation to Patient: Self Emergency Contact: NICK ARNOLD Triage Summary Conducted triage/discussed symptoms Utilized the Triage Tool: Yes Chief Complaint: Knee Pain System WHEN: Within 24 Hours Nurse's Recommendation / WHEN: Within 24 Hours System WHERE: Clinic Nurse's Recommendation / WHERE: Clinic/[facility] Patient Disposition Patient/Caregiver agrees to plan of care: Yes Nursing Plan and Disposition Referred Patient for In-Person Appt Transferred patient to Sched & Admin-Apt Other course(s) of action Generated msg to PACT/Provider Provided guidance for worsening symptoms: *Caller/Patient* advised to call facilities [place] Clinical Contact Center or seek immediate medical attention for new or worsening symptoms Nurse Summary Nurse Summary: Spoke to vet who reports 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 He has iced and elevated it. This morning it looked like the swelling had gone down but once he started walking it returned. He has 3/10 pain and states the knee is swollen, red and warm to the touch. Practice Physician transferred call to [facility] for possible PCP appointment within 24 hours. If no appointment he will go to [facility] [address] [place] [address]. Will alert PACT. Clinical Contact Center Codes Clinic/Location: [facility] PHONE [facility] RN TXCC Triage Complete Triage Date: 10/02/2023, 12:47 PM Triage Note: Phone Triage 02 Oct 2023 16:44:22 +0000 [facility] Demographics 32 y/o Male Results CC: Knee Pain Software suggested: Within 24 Hours Software suggested follow-up location: Clinic, consider [facility] care Values and Measures Duration of CC: 1 Days Positive Responses HPI: knee swelling, with knee pain HPI: skin erythema, knee VS: temperature not taken Negative Responses Denies: HPI: knee injury, within past 2 days Denies: HPI: knee pain, moderate to severe Denies: HPI: knee pain, severe Denies: HPI: leg swelling, localized below the painful knee Denies: HPI: lymph node pain, lymph node swelling, inguinal Denies: HPI: red streaks, from a spot on the knee Denies: HPI: skin lump, swollen, painful, over the knee Denies: HPI: skin swelling, knee, worsening Denies: HPI: skin tenderness, knee, worsening Denies: HPI: vomiting Denies: MEDS: chemotherapy Denies: PMH: diabetes Denies: PMH: gout Denies: PMH: HIV positive Denies: PMH: rheumatoid arthritis Denies: PMH: sickle cell anemia Denies: PSH: organ transplant /karla/ TRINIDAD MARAVILLA Signed: 10/02/2023 13:00 Receipt Acknowledged By: 10/04/2023 10:00 /karla/ RISHI PANDA LPN 10/02/2023 13:41 /karla/ ZAIRE LYNCH Registered Nurse 10/03/2023 ADDENDUM STATUS: COMPLETED Pt. was seen at [facility] [place]. He was administered an antibiotic injection and prescription for antbiotic x 10 days. Requested that he contact clinic with questions or concerns. Reports that some of the swelling/redness has decreased. /karla/ ZAIRE LYNCH Registered Nurse Signed: 10/03/2023 10:41 TRINIDAD MARAVILLA [facility]
--- OUTSIDE RECORDS SUMMARY | 2023-10-05 14:46 | XMS_ITS | Encounter Summary ---
Author Name [facility] [place] Address [address] [place] [address] Care Team Providers Care Non Linear Editor Name Role Phone LAYTON GARCIA Primary Care [...] MEDICAL EXPENSE (OPT/PROF ) F.W. ROBLEDO [place] Dec 18, 2020 [id number] [phone] CLAYTONTAZ PATIENT [facility] F.W. ROBLED[facility] [place] Dec 18, 2020 [id number] CLAYTONTAZ PATIENT [employer] PRESCRIPT ION RX Dec 18, 2020 [id number] TAZ ARNOLD PATIENT Selected Encounter This section includes the information on record at [place] for the Encounter. Date/Time Encounter Type Encounter Description Reason Pro vider Source August 04, 2023 09:00 AM Outpatient Encounter [facility] IND IHE Encounter Template Text not used by [facility] Plan of Treatment: Future Appointments (+ 6 months) and Future Tests (+/- 45 days) The Plan of Treatment section includes future care activities for the patient [facility] [place] [facility] This section includes future appointments and future orders which are active, pending or scheduled. Future Appointments This section includes appointments that were scheduled to occur 6 months from the date of the Encounter, up to a maximum of 20 appointments. The data comes from all [place] treatment facilities. Appointment Date/Time Appointment Type Appointme nt Facility Name August 18, 2023 09:00 AM AMBULATORY - PSYCHIATRY [facility] Sep 04, 2023 01:00 PM AMBULATORY - PSYCHIATRY [facility] Sep 27, 2023 10:00 AM AMBULATORY - MEDICINE [facility] Sep 27, 2023 02:00 PM AMBULATORY - PSYCHIATRY [facility] Dec 06, 2023 02:00 PM AMBULATORY - MEDICINE [facility] Active, Pending, and Scheduled Orders This section includes a listing of several types of active, pending, and scheduled orders, including clinic medications orders, diagnostic test orders, procedure orders and consult orders; where the start date of the order is 45 days before the date of the Encounter or 45 days after the date of theEncounter. The data comes from all [facility]. Test Date/Time Test Type Test Details Facility Name Sep 18, 2023 12:00 AM Laboratory - Chemi stry Order LIVER PROFILE LT GREEN(LI HEP) PLASMA SP [facility] Lab Results: +/- 30 days of the encounter This section includes the Chemistry and Hematology Lab Results on record with [place] for the patient. Radiology Reports and Pathology Reports are provided separately, in subsequent sections. Lab Results This section contains the Chemistry/Hematology Results that were resulted 30 days before or 30 daysafter the date of the Encounter. Date/Time Source Result Type Result - Unit Interpretation Reference Range Comment Jul 11, 2023 10:00 AM [facility] HEP B CORE,TOTAL(W) Specimen Type: SERUM [...] Jun 26, 2023 11:56 AM Reporting Lab: [facility] [address] [facility] [address] Performing Lab: [facility] [address] [facility] [address] HEP B CORE,TOTAL(W ) Non Reactive Non Reactive Jul 11, 2023 10:00 AM [facility] HBSAG PANEL WITH REFLEX CONFIRMATION(WH) Specimen Typ e: SERUM Comment: A Reactive result (Positive prior to 12/31/12) is diagnostic of acute or chronic hepatitis B infection. The presence of Hepatitis B surface antigen is frequently associated with infectivity. Ordering Provider: LAYTON GARCIA Report Released Date/Time: Jun 26, 2023 11:56 AM Reporting Lab: [facility] [address] [facility] [address] Performing Lab: [facility] [address] [address] HEP B SURFACE AG(wh) Non Reactive Non Reactive Jul 11, 2023 10:00 AM [facility] HEP B SURF AB(W) Specimen [...] Jun 26, 2023 11:56 AM Reporting Lab: [facility] [address] [facility] [address] Performing Lab: [facility] [address] [address] HEP B SURF AB(W) REACTIVE Non Reactive Jul 11, 2023 10:00 AM [facility] HEPATITIS C AB(WRJ)w/Reflex Specimen Type: SERUM Comment: , Tests performed on [employer] SN:[id number] (405) No HCV antibody detected. If recent infection is suspected or other evidence suggests HCV infection, consider HCV RNA testing Ordering Provider: LAYTON GARCIA Report Released Date/Time: Jun 26, 2023 11:56 AM Reporting Lab: [facility] [address] [facility] [address] [facility] [address] [facility] [address] HEPATITIS C AB(WRJ)w/Ref ria Non-Reactive Non-Reactive Jul 11, 2023 10:00 AM [facility] IRON+TIBC(P) Specimen Type: PLASMA Comment: , Tests performed on [employer] SN:[id number] (405). Ordering Provider: LAYTON GARCIA Report Released Date/Time: Jun 26, 2023 11:56 AM Reporting Lab: [facility] [address] [facility] [address] Performing [facility]: [facility] [address] [facility] [address] IRON 90 ug/dL 40-160 TIBC 318 ug/dL IRON SATURATION(P ) 28 >15 UIBC(P) 228 ug/dL 126-382 Social History: Smoking Status (Most current) and Tobacco Use (All prior to encounter date) This section includes the most current, and the historical, smoking and tobacco- related health factors from the [place] facility where the Encounter took place. Current Smoking Status This section includes the most current smoking, or tobacco-related health factor, from the [place] facility where the Encounter took place. Date/Time Current Smoking Status Comment Chase cheny Mar 30, 2023 01:30 PM [place]-TOBAC[place] FORMER USER [facility] Tobacco Use History This section includes a history of the smoking, or tobacco-related health factors, that were collected on or before the date of the Encounter. The data comes from the [place] facility where the Encounter took place. Date/Time Smoking Status/Tobacco Use Comment F acconnie Mar 30, 2023 01:30 PM [place]-TOBAC[place] QUIT 5 TO < 15 YRS [facility] Encounter Notes: All associated encounter notes This section contains the clinical notes associated to the Encounter. Date/Time Encounter Note(s) Provider Source August 04, 2023 09:44 AM NO SHOW NOTE: LOCAL TITLE: Mental Health No Show/Clinic Cancel/Conversion Note STANDARD TITLE: NO SHOW NOTE DATE OF NOTE: AUGUST 04, 2023@09:44 ENTRY DATE: AUGUST 04, 2023@09:44:49 AUTHOR: KWAN SALOMON EXP COSIGNER: URGENCY: STATUS: COMPLETED ====== MENTAL HEALTH NO SHOW/CLINIC CANCELLATION/CLINIC CONVERSION NOTE ====== Appointment Date & Time: July@09:00 ACTION: Provider attempted to reach Christmas to discuss: (X) No Show Cancellation by clinic Cancellation by Christmas Conversion of clinic appointment REASON: for no show or clinic cancel/reschedule: did not show for scheduled appt. OUTCOME: Left voicemail message: Left VM requesting return phone call to reschedule appt Any Acute Safety Concerns? No If Yes, Action Taken or Further Follow-up: Co-sign MSAs at location to this note to take action on the clinic appt and add any additional instructions to MSA group. /karla/ CHILO VIVAS [employer] Systems Engineer Signed: 08/04/2023 09:45 Receipt Acknowledged By: 08/04/2023 09:59 /karla/ KWAN OSPINA [facility]
--- OUTSIDE RECORDS SUMMARY | 2023-10-05 14:46 | XMS_ITS ---
Author Name [facility] [place] [facility] [place] Address [address] [place] [address] Care Team Providers Care Machinist General Name Role Phone LAYTON GARCIA Primary Care [...] MEDICAL EXPENSE (OPT/PROF ) [place] [place] Dec 18, 2020 [id number] TAZ ARNOLD PATIENT [facility] [place] [place] Dec 18, 2020 [id number] [phone] TAZ ARNOLD PATIENT [employer] PRESCRIPT ION RX Dec 18, 2020 [id number] TAZ ARNOLD PATIENT Selected Encounter This section includes the information on record at [place] for the Encounter. Date/Time Encounter Type Encounter Description Reason Pro vider Source Jul 10, 2023 02:26 PM Outpatient Encounter ADMIN PAT ACTIVTIES (MASNONCT) IHE Encounter Template Text not used by [place] Plan of Treatment: Future Appointments (+ 6 months) and Future Tests (+/- 45 days) The Plan of Treatment section includes future care activities for the patient from all [place] treatmentfacilities. This section includes future appointments and future orders which are active, pending or scheduled. Future Appointments This section includes appointments that were scheduled to occur 6 months from the date of the Encounter, up to a maximum of 20 appointments. The data comes from all [place] treatment facilities. Appointment Date/Time Appointment Type Appointme nt Facility Name Jul 11, 2023 10:00 AM AMBULATORY - NONE [facility] Jul 12, 2023 10:00 AM AMBULATORY - MEDICINE [place] [place] [facility] August 02, 2023 01:00 PM AMBULATORY - NONE [place] [facility] [facility] August 04, 2023 09:00 AM AMBULATORY - PSYCHIATRY ITParrish [facility] August 18, 2023 09:00 AM AMBULATORY - PS[place]CHIATRY [place] [facility] [facility] Sep 04, 2023 01:00 PM AMBULATORY - PS[place]IATRY [place] [facility] [facility] Sep 27, 2023 10:00 AM AMBULATORY - MEDICINE [facility] [facility] Sep 27, 2023 02:00 PM AMBULATORY - [place]IATRY [place] [facility] Dec 06, 2023 02:00 PM AMBULATORY - MEDICINE [facility] Lab Results: +/- 30 days [...] Range Comment Jul 11, 2023 10:00 AM [facility] HEP B CORE,TOTAL(W) Specimen Type: SERUM Comment: [...] Lab: [facility] [address] [facility] [address] Performing Lab: [facility] [address] [facility] [address] HEP B CORE,TOTAL(W) Non Reactive Non Reactive Jul 11, 2023 10:[address] [facility] HBSAG PANEL WITH REFLEX CONFIRMATION(WH) Specimen Type: SERUM Comment: A Reactive result (Positive prior to 12/31/12) is diagnostic of acute or chronic hepatitis B infection. The presence of Hepatitis B surface antigen is frequently associated with infectivity. Ordering Provider: LAYTON GARCIA Report Released Date/Time: Jun 26, 2023 11:56 AM Reporting Lab: [facility] [address] [facility] [address] Performing Lab: [address] [address] HEP B SURFACE AG(wh) Non Reactive Non Reactive Jul 11, 2023 10:[address] [facility] HEP B SURF AB(W) Specimen Type: [...] Lab: [facility] [address] [facility] [address] Performing Lab: [address] [address] HEP B SURF AB(W) REACTIVE Non Reactive Jul 11, 2023 10:[address] [facility] HEPATITIS C AB(WRJ)w/Reflex Specimen Type: SERUM Comment: , Tests performed on [employer] Alfaro SN:[id number] (405) No HCV antibody detected. If recent infection is suspected or other evidence suggests HCV infection, consider HCV RNA testing Ordering Provider: LATYON GARCIA Report Released Date/Time: Jun 26, 2023 11:56 AM Reporting [facility] [address] [facility] [address] [facility] [address] [facility] [address] HEPATITIS C AB(WRJ)w/Reflex Non-Reactive Non-Reacti ve Jul 11, 2023 10:00 AM [facility] IRON+TIBC(P) Specimen Type: PLASMA Comment: , Tests performed on [facility] SN:[id number] (405). Ordering Provider: LAYTON GARCIA Report Released Date/Time: Jun 26, 2023 11:56 AM Reporting [facility] [address] [facility] [address] [facility]: [facility] [address] [facility] [address] IRON 90 ug/dL 40-160 TIBC 318 ug/dL IRON SATURATION(P) 28 >15 UIBC(P) 228 ug/dL 126-382 Jun 16, 2023 10:[address] [facility] LIPOPROTEIN CHOLESTEROL FRACT. PANEL Specimen Type: PLASMA Comment: , Tests performed on [facility] SN:[id number] (405). Ordering Provider: LAYTON GARCIA Report Released Date/Time: Jun 07, 2023 01:13 PM Reporting [facility]: [facility] [address] [facility] [address] Performing Lab: [facility] [address] [facility] [address] CHOLESTEROL 200 mg/dL 0-200 TRIGLYCERIDE 255 mg/dL H 0-150 HDL CHOLESTEROL 45 mg/dL >40 LDL CHOLESTEROL (CALC) 104 mg/dL 0-129 Jun 16, 2023 10:15 AM [facility] GLYCOHEMOGLOBIN (A1C ONLY) Specimen Type: BLOOD Comment: , Tests performed on [facility] [employer]faro SN:[id number] (405) Values obtained from A1C measurements can vary. For typical A1C assays, a reported value of 7.0 could actually be between 6.72 and 7.28 if measured by a reference method. A reported value of 9.0 could actually be between 8.73 and 9.27. Ref: http://www.ng sp.org/CAPdat a.asp Ordering Provider: LAYTON GARCIA Report Released Date/Time: Jun 07, 2023 01:13 PM Reporting Lab: [facility] [address] [facility] [address] Performing Lab: [facility] [address] [facility] [address] HEMOGLOBIN A1C 5.1 4.0-5.6 Jun 16, 2023 10:[address] [facility] THYROID TESTING CASCADE Specimen Type: SERUM Comment: , Tests performed on [employer] SN:[id number] (405) TSH within normal limits. Reflex testing not required. Ordering Provider: LAYTON GARCIA Report Released Date/Time: Jun 07, 2023 01:13 PM Reporting Lab: [facility] [address] [facility] [address] Performing Lab: [facility] [address] [facility] [address] TSH 0.77 u[IU]/mL 0.35-5.00 Jun 16, 2023 10:[address] [facility] VIT D 25-OH(J) Specimen Type: SERUM Comment: , Tests performed on [employer] SN:[id number] (405) TSH within normal limits. Reflex testing not required. Ordering Provider: LAYTON GARCIA Report Released Date/Time: Jun 07, 2023 01:13 PM Reporting Lab: [facility] [address] [facility] [address] Performing Lab: [facility] [address] [facility] [address] VIT D 25-OH([facility]) 14.0 ng/mL L 20.0-50.0 Jun 16, 2023 10:[address] [facility] CBC PROFILE Specimen Type: BLOOD No comment entered. Ordering Provider: LAYTON GARCIA Report Released Date/Time: Jun 07, 2023 01:13 PM Reporting Lab: [facility] [address] [facility] [address] Performing Lab: [facility] [address] [facility] [address] WBC 7.1 10*3/uL 4.5-11.0 RBC 5.35 10*6/uL 4.23-5.66 HGB 16.5 g/dL 12.8-17 HEMATOCRIT 48.2 39.2-50.4 MCV 90.1 fL 82-99 MCH 30.8 pg 26.2-32.6 MCHC 34.2 g/dL 30.8-35.1 PLT 224 10*3/uL 140-360 MPV 11.0 fL 9.2-12.4 RDW 12.4 12.0-16.0 LYMPH % 28.9 14.0-42.3 MONO % 8.4 5.1-13.7 NEUT % 59.5 43.7-75.8 EOS % 2.4 0.4-6.8 BASO % 0.7 0.1-2.0 IG % 0.1 0.0-0.7 NUCLEATED RED CELLS 0.0 /100{WBCs} 0.0-0.0 ABSOLUTE IG 0.0 10*3/uL 0-0.06 ABSOLUTE BASOPHILS 0.1 10*3/uL 0.01-0.13 ABSOLUTE EOS. 0.2 10*3/uL 0.03-0.44 ABSOLUTE LYMPHOCYTES 2.0 10*3/uL 1.0-3.2 ABSOLUTE MONOCYTES 0.6 10*3/uL 0.3-1.1 ABSOLUTE GRANULOCYTES 4.2 10*3/uL 2.2-7.6 ABSOLUTE NRBC 0.00 10*3/uL 0-0 Jun 16, 2023 10:15 AM [facility] P4 GLU,BUN,CREAT,LYTES,CA Specimen Type: PLASMA Comment: , Tests performed on [employer] SN:[id number] (169). Ordering Provider: LAYTON GARCIA Report Released Date/Time: Jun 07, 2023 01:13 PM Reporting Lab: [facility] [address] [facility] [address] Performing Lab: [facility] [address] [facility] [address] UREA NITROGEN 13 mg/dL 7-25 SODIUM 139 mmol/L 135-145 POTASSIUM 4.4 mmol/L 3.5-5.0 CHLORIDE 104 mmol/L 100-110 CARBON DIOXIDE 25 mmol/L 20-30 ANION GAP 10 4-16 GLUCOSE 91 mg/dL 65-100 CREATININE 0.83 mg/dL 0.50-1.50 CALCIUM 9.7 mg/dL 8.5-10.5 eGFR(CKD-EPI 2020) >90 mL/min See_Faiza t Jun 16, 2023 10:[address] [facility] LIVER PROFILE Specimen Type: PLASMA Comment: , Tests performed on [employer] SN:[id number] (007). Ordering Provider: LAYTON GARCIA Report Released Date/Time: Jun 07, 2023 01:13 PM Reporting Lab: [facility] [address] [facility] [address] Performing Lab: [facility] [address] [facility] [address] PROTEIN, TOTAL 7.7 g/dL 6.0-8.5 ALBUMIN 4.3 g/dL 3.2-5.0 BILIRUBIN, TOTAL 0.5 mg/dL 0.2-1.2 ALKALINE PHOSPHATASE 88 U/L 40-150 ALT(SGPT) 82 U/L H 7-52 AST(SGOT) 36 U/L H 5-34 FIB-4 SCORE 0.59 <2.67 Encounter Notes: All associated encounter notes This section contains the clinical notes associated to the Encounter. Date/Time Encounter Note(s) Provider Source Jul 10, 2023 02:26 PM ADMINISTRATIVE NOT E: LOCAL TITLE: CCC: SCHEDULING ADMINISTRATION STANDARD TITLE: ADMINISTRATIVE NOTE DATE OF NOTE: JUL 10, 2023@14:26:09 ENTRY DATE: JUL 10, 2023@14:26:09 AUTHOR: CONSTANCE CHAVES COSIGNER: URGENCY: STATUS: COMPLETED CCC: SCHEDULING ADMINISTRATION Has ADDENDA Patient Demographics Patient Name: TAZ ARNOLD Patient Primary Phone: [phone] Patient Primary Address: [address] [place] [id number] Patient : 1990 Patient Age: 32 Caller/Recipient Relation to Patient: Self Administrative Administrative Note Reason: Returned Call Administrative Note Comments: returning a call and requesting a call back /karla/ CON[facility]ANCE [facility] AMSA Signed: 07/10/2023 14:26 Receipt Acknowledged By: 07/12/2023 15:35 /karla/ RISHI PANDA LPN 07/10/2023 15:30 /es/ MEY KEITA AMSMarisol 07/12/2023 ADDENDUM STATUS: COMPLETED [place] spoke with provider /karla/ RISHI PANDA LPN Signed: 07/12/2023 15:35 [facility]
--- OUTSIDE RECORDS SUMMARY | 2023-10-05 14:46 | XMS_ITS | Encounter Summary ---
Author Name [facility] [place] Organization [facility] [place] Address [address] [place] [address] Care Team Providers Care Helicopter Pilot Name Role Phone LAYTON GARCIA Primary Care [...] MEDICAL EXPENSE (OPT/PROF ) [facility] [place] Dec 18, 2020 [id number] CLAYTONTAZ PATIENT [facility] MENTAL HEALTH [facility]. [place] Dec 18, 2020 [id number] TAZ ARNOLD PATIENT [employer] PRESCRIPT ION RX Dec 18, 2020 [id number] [phone] TAZ ARNOLD PATIENT Selected Encounter This section includes the information on record at [place] for the Encounter. Date/Time Encounter Type Encounter Description Reason Provider Source Sep 04, 2023 01:00 PM PSYTX W PT 45 MINUTES PCMHI INDIV ICD-10-CM F41.9 Anxiety disorder, unspecified KWAN SALOMON Encounter Template Text not used by [facility] Assessments - Encounter Diagnoses This section includes the primary and secondary diagnoses documented for the Encounter. Date/Time Primary/Secondary Diagnosis Diagnosis Name Provider Source Sep 04, 2023 04:08 PM PRIMARY Anxiety disorder, unspecified KWAN SALOMON [facility] Plan of Treatment: Future Appointments (+ 6 months) and Future Tests (+/- 45 days) The Plan of Treatment section includes future care activities for the patient from all [place] treatmentfacilities. This section includes future appointments and future orders which are active, pending or scheduled. Future Appointments This section includes appointments that were scheduled to occur 6 months from the date of the Encounter, up to a maximum of 20 appointments. The data comes from all [facility]. Appointment Date/Time Appointment Type Appointme nt Facility Name Sep 27, 2023 10:00 AM AMBULATORY - MEDICINE [facility] Sep 27, 2023 02:00 PM AMBULATORY - PSYCHIATRY [facility] Dec 06, 2023 02:00 PM AMBULATORY - MEDICINE [facility] Active, Pending, and Scheduled Orders This section includes a listing of several types of active, pending, and scheduled orders, including clinic medications orders, diagnostic test orders, procedure orders and consult orders; where the start date of the order is 45 days before the date of the Encounter or 45 days after the date of theEncounter. The data comes from all [facility]. Test Date/Time Test Type Test Details Facility Name Sep 18, 2023 12:00 AM Laboratory - Chemi stry Order LIVER PROFILE LT GREEN(LI HEP) PLASMA SP [facility] Social History: Smoking Status (Most current) and Tobacco Use (All prior to encounter date) This section includes the most current, and the historical, smoking and tobacco- related health factors from the [place] facility where the Encounter took place. Current Smoking Status This section includes the most current smoking, or tobacco-related health factor, from the [place] facility where the Encounter took place. Date/Time Current Smoking Status Comment Chase ity Mar 30, 2023 01:30 PM VA-TOBACCO FORMER USER [facility] Tobacco Use History This section includes a history of the smoking, or tobacco-related health factors, that were collected on or before the date of the Encounter. The data comes from the [place] facility where the Encounter took place. Date/Time Smoking Status/Tobacco Use Comment F acility Mar 30, 2023 01:30 PM VA-TOBACCO QUIT 5 TO < 15 YRS [facility] CB Encounter Notes: All associated encounter notes This section contains the clinical notes associated to the Encounter. Date/Time Encounter Note(s) Provider Source Sep 04, 2023 01:30 PM MENTAL HEALTH ALPHONSE TMENT PLAN NOTE: LOCAL TITLE: Mental Health Treatment Plan STANDARD TITLE: MENTAL HEALTH TREATMENT PLAN NOTE DATE OF NOTE: SEP 04, 2023@13:30 ENTRY DATE: SEP 04, 2023@13:30:26 AUTHOR: KWAN SALOMON EXP COSIGNER: URGENCY: STATUS: COMPLETED Mental Health Treatment Plan - Aug, @ 01:30PM Visit Date: Aug, @ 13:00 - [facility] 26 TC not assigned TEAM MEMBERS: KWAN SALOMON: TRAVELING INVENTORY ASSOCIATE PATIENT'S PERCEPTION OF NEEDS AND PREFERENCES: I need to learn about my illness PATIENT'S STRENGTHS/ABILITIES: Expressed desire/motivation for change Housing Resiliency Accepts guidance/Feedback Capable of [place] Able to maintain IADLs Good Hygiene INTERDISCIPLINARY INTEGRATED SUMMARY: Presenting complaint: I'd like to be able to better communicate my emotion to both my and kids MENTAL HEALTH DIAGNOSES AND RELEVANT MEDICAL CONDITIONS: Anxiety ([facility] [id number]) TREATMENT PLAN: Problem: Anxiety Goal: To better understand his experience with anxiety and how to best manage symptoms Objective: Bi-Weekly psychotherapy Projected Target Date: 02/04/2024 Intervention: Cognitive Behavioral Therapy Providers: KWAN SALOMON Time Frame: One time every 2 weeks for 5 months Treating Specialty: Outpatient Care Renewal Date: 10/04/2023 Entered Treatment: 09/04/2023 @ 01:29PM Anticipated Discharge: 02/04/2024 Actual Discharge: None /karla/ CHILO VIVAS [employer] Business Analyst Signed: 09/04/2023 13:30 KWAN SALOMON [facility] Sep 04, 2023 01:05 PM MENTAL HEALTH OUTP ATIENT NOTE: LOCAL TITLE: PMHC Note STANDARD TITLE: MENTAL HEALTH OUTPATIENT NOTE DATE OF NOTE: SEP 04, 2023@13:05 ENTRY DATE: SEP 04, 2023@13:05:50 AUTHOR: KWAN SALOMON EXP COSIGNER: URGENCY: STATUS: COMPLETED [facility] Psychotherapy Note Time spent with : 20-30 minutes Session number: 2 Diagnosis: r/o Generalized Anxiety d/o, and intermittent explosive d/o, problems in relationship with partner. Reason for visit: Supportive therapy, Brief [facility] therapy Summary of Session: Met with Taz for scheduled session. Completed Mh tx plan. He spoke about his tendency to become frustrated while parenting, and or having to care for demands around the house. Notes that at times this results in his yelling or even throwing inanimate objects. He beings in a list of things his wrote down for him to focus on in psychotherapy; which includes issues with anger, and anxiety. We agreed to continue to build treatment plan/goals and rescheduled for 09/27/23 at 2pm. ASSESSMENT OF DANGER TO SELF: No significant risk. ASSESSMENT OF SUICIDE RISK: Denies acitve thoughts, intent, or plan for suicide and [...] anger, irritability, emotional awareness/regulation. /karla/ CHILO VIVAS [employer] Business Analyst Signed: 09/04/2023 16:08 KWAN SALOMON [facility]
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
--- OUTSIDE RECORDS SUMMARY | 2023-10-05 14:46 | XMS_ITS | Encounter Summary ---
Author Name [facility] [place] [facility] [place] [facility] Address [address] [place] [address] Care Team Providers Care Pellet Preparation Operator Name Role Phone LAYTON GARCIA Primary [...] MEDICAL EXPENSE (OPT/PROF ) [place] [place] Dec 18, 2020 [id number] TAZ ARNOLD PATIENT [facility] [place] [place] Dec 18, 2020 [id number] TAZ ARNOLD PATIENT MAXORPLUS PRESCRIPT ION RX Dec 18, 2020 [id number] [phone] TAZ ARNOLD PATIENT Selected Encounter This section includes the information on record at [place] for the Encounter. Date/Time Encounter Type Encounter Description Reason Provider Source Mar 30, 2023 01:30 PM OFFICE O/P NEW MOD 45 MIN PRIMARY CARE/MEDICINE ICD-10-CM F41.9 Anxiety disorder, unspecified LAYTON GARCIA IHParrish Encounter Template Text not used by [facility] Assessments - Encounter Diagnoses This section includes the primary and secondary diagnoses documented for the Encounter. Date/Time Primary/Secondary Diagnosis Diagnosis Name Provider Source Mar 30, 2023 03:33 PM PRIMARY Anxiety disorder, unspecified LAYTON GARCIA Anam [facility] Mar 30, 2023 03:33 PM SECONDARY Contact with and exposure to other hazardous substances LAYTON GARCIA [facility] Mar 30, 2023 03:33 PM SECONDARY Overweight LAYTON GARCIA [facility] Plan of Treatment: Future Appointments (+ 6 months) and Future Tests (+/- 45 days) The Plan of Treatment section includes future care activities for the patient [facility] [place] [facility]. This section includes future appointments and future orders which are active, pending or scheduled. Future Appointments This section includes appointments that were scheduled to occur 6 months from the date of the Encounter, up to a maximum of 20 appointments. The data comes from all [place] treatment facilities. Appointment Date/Time Appointment Type Appointme nt Facility Name Jun 16, 2023 09:30 AM AMBULATORY - NONE [facility] Jul 11, 2023 10:00 AM AMBULATORY - NONE [facility] Jul 12, 2023 10:00 AM AMBULATORY - MEDICINE [place] [facility] August 02, 2023 01:00 PM AMBULATORY - NONE [facility] August 04, 2023 09:00 AM AMBULATORY - PSYCHIATRY [place] [facility] [facility] August 18, 2023 09:00 AM AMBULATORY - [facility]CHIATRY [facility] [facility] [facility] Sep 04, 2023 01:00 PM AMBULATORY - PS[facility]CHIATRY [place] [facility] Sep 27, 2023 10:00 AM AMBULATORY - MEDICINE [place] [facility] Sep 27, 2023 02:00 PM AMBULATORY - PSYCHIATRY [place]Parr[place] [facility] Vital Signs: All taken on the encounter date This section contains inpatient and outpatient Vital Signs collected on the date of the Encounter. Date/Time Temperature Pulse Blood Pressure Respiratory Rate SP02 Pain Height Weight Body Mass Index Source Mar 30, 2023 01:25 PM 98.7 F 81 /min 133/92 mm[Hg] 16 /min 96 % 0 70 in 216.6 lb 31 [facility] Social History: Smoking Status (Most current) and Tobacco Use (All prior to encounter date) This section includes the most current, and the historical, smoking and tobacco- related health factors from the [place] facility where the Encounter took place. Current Smoking Status This section includes the most current smoking, or tobacco-related health factor, from the [place] facility where the Encounter took place. Date/Time Current Smoking Status Comment Chase cesar Mar 30, 2023 01:30 PM VA-TOBACCO FORMER USER [facility] Tobacco Use History This section includes a history of the smoking, or tobacco-related health factors, that were collected on or before the date of the Encounter. The data comes from the [place] facility where the Encounter took place. Date/Time Smoking Status/Tobacco Use Comment F elicia Mar 30, 2023 01:30 PM [place]-TOBACCO QUIT 5 TO < 15 YRS [facility] Encounter Notes: All associated encounter notes This section contains the clinical notes associated to the Encounter. Date/Time Encounter Note(s) Provider Source Mar 30, 2023 01:48 PM PRIMARY CARE NOTE: LOCAL TITLE: Primary Care Clinic Note STANDARD TITLE: PRIMARY CARE NOTE DATE OF NOTE: MAR 30, 2023@13:48 ENTRY DATE: MAR 30, 2023@13:48:03 AUTHOR: LAYTON GARCIA EXP COSIGNER: URGENCY: STATUS: COMPLETED CC:32 MALE here to establish with new PCP. ASSESS/PLAN - # overweight - discussed [facility] - info provided not very interested- would like nutrition consult # anxiety - MH consult - had [facility] gustavo Almag[place] psychologist- they are trying to see if there is availability in [place] for ftf- new counselor starting soon. Will start sertraline 25 mg daily- he will start after his vacation- cruise with #Health Care Maint:labs next visit Patient Education - RTC - 6-8 weeks f/u sertraline start HPI: He has been irritable, his girlfriend would like his to talk about irritability, mood swings and anxiety. He states there is generally a cause for it but thinks he could communicate better. He would like to check labs next visit (past lab time now) due to fam Hx heart disease and his brother just had a stroke computer froalberto unable to complete all reminders ALLERGIES: No Allergy Assessment PMH: Active problems - Computerized Problem List is the source for the followin. 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 - lives with his [email or web address] HABITS: recreational drugs: none Tobacco: none only during deployment in 2009 ETOH: socail 3-4 at family events 1-2 /we over the year average Sexual history:(active, abuse,impotence) active- one Checks testicles regularly: will start Immunizations: up to date Bowel screening: no family hx Prostate screening: Diet/Exercise: not terrible- could eat more greens limited exercise Seatbelt use: y Smoke detectors:y [facility] care: [facility] Dental care: yes FH: Mother: alive age 50s heart problem myocardial vasospasms - 2 or 2 stents Father: alive age 62 CAGB 2020 T2DM Brother: two basically healthy except one brother had ED visit for stroke like symptoms no clear diagnosis - no hospital admission Sister: ROS: as above + anxiety PYSICAL EXAM: BP:133/92 (03/30/2023 13:25) HR:81 (03/30/2023 13:25) WT:216.6 lb [98.25 kg] (03/30/2023 13:25) HT:70 in [177.8 cm] (03/30/2023 13:25) BMI:BODY MASS INDEX - MAR 30, 2023@13:25:01 31.1 Pain: /10 General- Well-appearing, no apparent distress. Cardiovascular:RRR, S1,S2, no m/g/r, PMI non-displaced Respiratory: non-labored breathing, clear A & P Skin:Warm and dry. Extremities/feet: (-) edema, Musculoskeletal: normal gait Neurological:Alert, oriented X3 Side effects from medication ( ) yes (x) no BMI>30/>24.99 High Risk: At this visit, the health risks of obesity were reviewed and discussed with the , and the benefits of a weight management treatment program, such as MOVE! was discussed and offered to the [place]. Toxic Exposure Screening: The /caregiver was asked if they believe the experienced any toxic exposure(s), such as Airborne Hazards and Open Burn Pit, [place] War related exposures, Agent [place], Radiation, contaminated water at [place] or other such exposures, while serving in the Armed Forces. /caregiver believes the was exposed to the following while serving in the Armed Forces: Airborne Hazards and Open Burn Pit: [place]/caregiver was made aware of educational resources that includes information on the Registry Program, presumptive conditions and how to file a claim. Printed information was offered and provided if desired. [place]/caregiver has no health or medical concerns related to their concern of environmental exposure. Benefits/Claims Questions [place]/caregiver was informed of local point of contact. VA Health Care Enrollment and Eligibility Questions [place]/caregiver was informed of local point of contact. Registry Questions [place]/caregiver was informed of local point of contact. Contact information for local resources: Benefits/Claims Questions: [place] Healthcare Enrollment: DARLENE Rodriguez Program Project Manager, [phone] Flores Villarreal Program Project Manager, [phone] Registry: Dawson Balderrama, Environmental Health Coordinator, [phone] The following connections were provided to the /caregiver: Consult/Referral to Registry Program Veterans Benefits Administration (VBA) for Benefits/claims: Librarian Specialist/Organization (VSO) ABHIJEET - Henri Gtz [phone]; SIOBHAN - Dean King [phone] Hepatitis B Serology/Immunization: HBV serology not indicated Reason: low risk Tobacco Use Screening: The patient is a former tobacco user. The patient quit five to less than fifteen years ago. HIV Screening: Patient has been offered HIV testing and has declined. I have explained that HIV testing is recommended for all adults, even if all risk factors are absent. The patient was educated on the risk of delayed screening. Medication Reconciliation: Perform Medication Reconciliation JLV Link Data on this list may not be complete. Please check JLV. Allergies/ADRs (Tool #5) FACILITY ALLERGY/ADR -------- No Remote Allergy/ADR Data available for this patient [facility] No Allergy Assessment Completed Med [facility] (Tool #1) INCLUDED IN THIS LIST: Alphabetical list of active outpatient prescriptions dispensed from this [place] (local) and dispensed from another [place] or [facility] facility (remote) as well as inpatient orders (local pending and active), local clinic medications, locally documented non-VA medications, and local prescriptions that have or been discontinued in the past 90 days. Non-VA Meds Last Documented On: Data not found NOTE The display of VA prescriptions dispensed from another [place] or [facility] facility (remote) is limited to active outpatient prescription entries matched to National Drug File at the originating site and may not include some items such as investigational drugs, compounds, etc. NOT INCLUDED IN THIS LIST: Medications self-entered by the patient into personal health records (i.e. Contapps) are NOT included in this list. Non-VA medications documented outside this [place], remote inpatient orders (regardless of status) and remote clinic medications are NOT included in this list. The patient and provider must always discuss medications the patient is taking, regardless of where the medication was dispensed or obtained. SUPPLIES Comments: The patient's Essential Medication List for Review was used for reconciliation to address additions, deletions, and changes as reported by the patient/caregiver. The patient/caregiver indicates that medications are being taken as documented as described above. Was medication education provided for new medications or changes to medications? (including medication name, dose, route, reason for use, and potential side effects). Yes. Verbal education was provided to patient/caregiver and patient/caregiver verbalized understanding. Preferred Language: Preferred Language: Micronesian /karla/ LAYTON GARCIA TRUCK PACKER Signed: 03/30/2023 15:33 LAYTON GARCIA [facility] Mar 30, 2023 01:28 PM PRIMARY CARE GIFTY Robbins EVALUATION NOTE: LOCAL TITLE: Preventive Health Annual Review STANDARD TITLE: PRIMARY CARE ANNUAL EVALUATION NOTE DATE OF NOTE: MAR 30, 2023@13:28 ENTRY DATE: MAR 30, 2023@13:28:18 AUTHOR: SADE ISIDRO COSIGNER: URGENCY: STATUS: COMPLETED Suicide Screen: C-SSRS Screening [place]-Suicide Severity Rating Scale (C-SSRS Screener) 1. Over the past month, have you wished you were or wished you could go to sleep and not wake up? No 2. Over the past month, have you had any actual thoughts of killing yourself? No 3. Over the past month, have you been thinking about how you might do this? Response not required due to responses to other questions. 4. Over the past month, have you had these thoughts and had some intention of acting on them? Response not required due to responses to other questions. 5. Over the past month, have you started to work out or worked out the details of how to kill yourself? Response not required due to responses to other questions. 6. If yes, at any time in the past month did you intend to carry out this plan? Response not required due to responses to other questions. 7. In your lifetime, have you ever done anything, started to do anything, or prepared to do anything to end your life (for example, collected pills, obtained a gun, gave away valuables, went to the roof but didn't jump)? No 8. If YES, was this within the past 3 months? Response not required due to responses to other questions. COVID-19 Immunization: Refused Moderna Monovalent COVID-19 vaccine Immunization: COVID-19 (MODERNA), MRNA, LNP-S, PF, 50 MCG/0.5 ML (AGES 12+ YEARS) Refusal Reason: PATIENT DECISION Patient refuses all immunization(s) in the COVID-19 group Date Documented: 03/30/23 13:29 Influenza Immunization: The patient has received the seasonal influenza vaccine for the current season at another location. Documented: INFLUENZA, UNSPECIFIED FORMULATION Historical Date Administered: Nov 01, 2022 Outside Location[facility] Provider Information Source: SOURCE UNSPECIFIED Homelessness/Food Insecurity Screen: In the past 2 months, have you been living in stable housing that you own, rent, or stay in as part of a household? Yes - Living in stable housing. Are you worried or concerned that in the next 2 months you may NOT have stable housing that you own, rent, or stay in as part of a household? No - Not worried about housing near future The [place] reports the following: Within the past 12 months, you worried whether your food would run out before you got money to buy more. Never true Within the past 12 months, the food you bought just didn't last and you didn't have money to get more. Never true Alcohol Use Screen (AUDIT-C): Alcohol Screen: SCREEN FOR ALCOHOL (AUDIT-C) An alcohol screening test (AUDIT-C) was negative (score=3). 1. How often did you have a drink containing alcohol in the past year? Consider a drink to be a 12 ounce can or bottle of regular beer, 8 ounces of malt liquor, a 5 ounce glass of table wine, or a 1.5 ounce shot of liquor (like scotch, gin, or vodka). Two to three times per week 2. How many drinks containing alcohol did you have on a typical day when you were drinking in the past year? One or two drinks 3. How often did you have six or more drinks on one occasion in the past year? Never Advance Directive Screen MH AD: The patient has an Advance Directive on file at another [facility] that may require updating with the assistance of Social Work Service. A consult to Social Work Service has been entered. (See Orders) The patient received education about Advance Directives and written notification of his/her rights. Sexual Orientation: The patient thinks of their sexual orientation as: Straight or Heterosexual Depression Screening: Perform PHQ-2 A PHQ-2 screen was performed. The score was 0 which is a negative screen for depression. Over the past two weeks, how often have you been bothered by the following problems? 1. Little interest or pleasure in doing things Not at all 2. Feeling down, depressed, or hopeless Not at all PTSD Screening: PC-PTSD-5 A PTSD screening test (PC-PTSD-5) was negative (score=0). IN THE PAST MONTH, have you ever had any experience that was so frightening, horrible or traumatic. For example: A serious accident or fire a physical or sexual assault or abuse An earthquake or flood A war Seeing someone be killed or seriously injured Having a loved one through homicide or suicide 1. Have you ever experienced this kind of event? NO 2. Had nightmares about the event(s) or thought about the event(s) when you did not want to? Response not required due to responses to other questions. 3. Tried hard not to think about the event(s) or went out of your way to avoid situations that reminded you of the event(s)? Response not required due to responses to other questions. 4. Been constantly on guard, watchful, or easily startled? Response not required due to responses to other questions. 5. [place] numb or detached from people, activities, or your surroundings? Response not required due to responses to other questions. 6. [place] guilty or unable to stop blaming yourself or others for the event(s) or any problems the event(s) may have caused? Response not required due to responses to other questions. /karla/ SADE ISIDRO [employer] Signed: 03/30/2023 13:32 [facility]
--- OUTSIDE RECORDS SUMMARY | 2023-10-05 14:46 | XMS_ITS | Encounter Summary ---
Author Name [facility] [place] Organization [facility] [place] Address [address] [place] [address] Care Team Providers Care Newspaper Press Operator Apprentice Name Role Phone LAYTON GARCIA Primary Care [...] MEDICAL EXPENSE (OPT/PROF ) F.W. [place] Dec 18, 2020 [id number] [facility] [phone] LESLY ARNOLDD PATIENT [facility] M[facility] HE[facility] [place] Dec 18, 2020 [id number] LESLY ARNOLDD PATIENT MAXORPLUS PRESCRIPT ION RX Dec 18, 2020 [id number] LESLY ARNOLDD PATIENT Selected Encounter This section includes the information on record at [place] for the Encounter. Date/Time Encounter Type Encounter Description Reason Pro vider Source Mar 07, 2023 09:20 AM Outpatient Encounter TELEPHONE IHE Encounter Template Text not used by [place] Plan of Treatment: Future Appointments (+ 6 months) and Future Tests (+/- 45 days) The Plan of Treatment section includes future care activities for the patient from all [facility]. This section includes future appointments and future orders which are active, pending or scheduled. Future Appointments This section includes appointments that were scheduled to occur 6 months from the date of the Encounter, up to a maximum of 20 appointments. The data comes from all [place] treatment facilities. Appointment Date/Time Appointment Type Appointme nt Facility Name Mar 08, 2023 02:30 PM AMBULATORY - MEDICINE AMANDA MCPEHRSON [facility] Mar 21, 2023 02:00 PM AMBULATORY - PSYCHIATRY DALI MCPHERSON [facility] Mar 30, 2023 01:30 PM AMBULATORY - NONE [facility] Jun 16, 2023 09:30 AM AMBULATORY - NONE [facility] Jul 11, 2023 10:00 AM AMBULATORY - NONE [facility] Jul 12, 2023 10:00 AM AMBULATORY - MEDICINE AMANDA MCPHERSON [facility] August 02, 2023 01:00 PM AMBULATORY - NONE JOAQUIN ROLDAN [facility] August 04, 2023 09:00 AM AMBULATORY - PSYCHIATRY DALI MCPHERSON [facility] August 18, 2023 09:00 AM AMBULATORY - PSYCHIATRY DALI MCPHERSON T [facility] Sep 04, 2023 01:00 PM AMBULATORY - PSYCHIATRY DALI MCPHERSON [facility] Encounter Notes: All associated encounter notes This section contains the clinical notes associated to the Encounter. Date/Time Encounter Note(s) Provider Source Mar 07, 2023 09:20 AM MENTAL HEALTH ADMI NISTRATIVE NOTE: LOCAL TITLE: Administrative Note/Mental Health STANDARD TITLE: MENTAL HEALTH ADMINISTRATIVE NOTE DATE OF NOTE: MAR 07, 2023@09:20 ENTRY DATE: MAR 07, 2023@09:20:41 AUTHOR: LINDA RUTLEDGE EXP COSIGNER: URGENCY: STATUS: COMPLETED Attempted to reach again on this date per his [facility] request for MH services. Left VM requesting call back. /karla/ CHILO Jimenez, MPH MHBSS Monument Letterer Signed: 03/07/2023 09:21 LINDA RUTLEDGE [facility]
--- OUTSIDE RECORDS SUMMARY | 2023-10-05 14:46 | XMS_ITS | Encounter Summary ---
Author Name [facility] [place] Address [address] [place] [address] Care Team Providers Care Cable Lacer Name Role Phone LAYTON GARCIA Primary Care [...] MEDICAL EXPENSE (OPT/PROF ) [place]. [place] Dec 18, 2020 [id number] [phone] LESLY COLLINSD PATIENT [facility] M[facility]AL HEALTH [place] [place] Dec 18, 2020 [id number] LESLY COLLINSD PATIENT MAXORPLUS PRESCRIPT ION RX Dec 18, 2020 [id number] [phone] LESLY COLLINSD PATIENT Selected Encounter This section includes the information on record at [place] for the Encounter. Date/Time Encounter Type Encounter Description Reason Pro vider Source Mar 01, 2023 12:07 PM Outpatient Encounter TELEPHONE IHE Encounter Template Text not used by [place] Plan of Treatment: Future Appointments (+ 6 months) and Future Tests (+/- 45 days) The Plan of Treatment section includes future care activities for the patient from all VA treatmentfacilities. This section includes future appointments and future orders which are active, pending or scheduled. Future Appointments This section includes appointments that were scheduled to occur 6 months from the date of the Encounter, up to a maximum of 20 appointments. The data comes from all [place] treatment facilities. Appointment Date/Time Appointment Type Appointme nt Facility Name Mar 08, 2023 02:30 PM AMBULATORY - MEDICINE AMANDA MCPHERSON [facility] Mar 21, 2023 02:00 PM AMBULATORY - PSYCHIATRY DALI MCPHERSON [facility] Mar 30, 2023 01:30 PM [facility] N[facility] Jun 16, 2023 09:30 AM AMBULATORY - NONE [facility] Jul 11, 2023 10:00 AM AMBULATORY - NONE [facility] Jul 12, 2023 10:00 AM AMBULATORY - MEDICINE AMANDA MCPHERSON [facility] August 02, 2023 01:00 PM AMBULATORY - NONE JOAQUIN ROLDAN [facility] August 04, 2023 09:00 AM AMBULATORY - PSYCHIATRY DALI MCPHERSON [facility] August 18, 2023 09:00 AM AMBULATORY - PSYCHIATRY DALI MCPHERSON [facility] Encounter Notes: All associated encounter notes This section contains the clinical notes associated to the Encounter. Date/Time Encounter Note(s) Provider Source Mar 01, 2023 12:07 PM MENTAL HEALTH ADMI NISTRATIVE NOTE: LOCAL TITLE: Administrative Note/Mental Health STANDARD TITLE: MENTAL HEALTH ADMINISTRATIVE NOTE DATE OF NOTE: MAR 01, 2023@12:07 ENTRY DATE: MAR 01, 2023@12:07:40 AUTHOR: LINDA RUTLEDGE EXP COSIGNER: URGENCY: STATUS: COMPLETED Administrative Note/Mental Health Has ADDENDA Summer Law Associate was notified entered a [place] Online Scheduling request to discuss MH services available. Given [place] MH services are booking out far at this time, may first need to meet w/ [facility] - as such, public relations writer attempted to reach to further discuss. Left VM requesting call back. /karla/ CHILO Jimenez, MPH MHBSS Stockbroker Signed: 03/01/2023 12:09 Receipt Acknowledged By: 03/01/2023 12:10 /karla/ Cordelia Capone PsyD Clinical Psychologist 03/01/2023 12:27 /karla/ ED ORELLANA 03/01/2023 ADDENDUM STATUS: COMPLETED Added aMSA to assist with mailing following letter to in an effort to outreach: In Reply Refer To: [phone] March 01, 2023 Dear Mr. Collins, I am following up with your request for Mental Health services at the [facility], and attempting to contact you to schedule an appointment. If you have already been in contact with the clinic and have an appointment scheduled, please disregard this letter. Please contact me at [phone]. I look forward to hearing from you! Sincerely, CHILO Jimenez, MPH Filament Welder, Department of and [facility] /karla/ CHILO Jimenez, MPH BSS Stockbroker Signed: 03/01/2023 12:17 03/01/2023 ADDENDUM STATUS: COMPLETED Letter put in mail on 03/01/2023. /karla/ ED ORELLANA Signed: 03/01/2023 12:27 LINDA RUTLEDGE [facility]
--- OUTSIDE RECORDS SUMMARY | 2023-10-05 14:46 | XMS_ITS | Encounter Summary ---
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 ROBLEDO [place] Dec 18, 2020 [id number] CLAYTONTAZ PATIENT [facility] F.W. ROBLED[facility] [place] Dec 18, 2020 [id number] CLAYTONTA[place] PATIENT [facility] PRESCRIPT ION RX Dec 18, 2020 [phone] TAZ ARNOLD PATIENT Selected Encounter This section includes the information on record at [place] for the Encounter. Date/Time Encounter Type Encounter Description Reason Pro vider Source July 26, 2023 10:00 AM Outpatient Encounter COMMUNITY CARE CONSULT IHE Encounter Template Text not used by [facility] Plan of Treatment: Future Appointments (+ 6 months) and Future Tests (+/- 45 days) The Plan of Treatment section includes future care activities for the patient from all [place] treatmentfacilities. This section includes future appointments and future orders which are active, pending or scheduled. Future Appointments This section includes appointments that were scheduled to occur 6 months from the date of the Encounter, up to a maximum of 20 appointments. The data comes from all [place] treatment facilities. Appointment Date/Time Appointment Type Appointme nt Facility Name August 02, 2023 01:00 PM AMBULATORY - NONE [facility] August 04, 2023 09:00 AM [facility] [facility] August 18, 2023 09:00 AM [facility] [facility] Sep 04, 2023 01:00 PM [facility] [facility] [facility] Sep 27, 2023 10:00 AM [facility] - [facility] [facility] Sep 27, 2023 02:00 PM [facility] [place] [facility] [facility] Dec 06, 2023 02:00 PM [facility]AT[facility] - [facility] [facility] [facility] Lab Results: +/- 30 days of the encounter This section includes the Chemistry and Hematology Lab Results on record with [place] for the patient. Radiology Reports and Pathology Reports are provided separately, in subsequent sections. Lab Results This section contains the Chemistry/Hematology Results that were resulted 30 days before or 30 daysafter the date of the Encounter. Date/Time Source Result Type Result - Unit Interpretation Reference Range Comment Jul 11, 2023 10:[address] [facility] HEP B CORE,TOTAL(W) Specimen Type: SERUM [...] Jun 26, 2023 11:56 AM Reporting Lab: [facility] [address] [facility] [id number] Performing Lab: [address] [address] HEP B CORE,TOTAL(W ) Non Reactive Non [...] Jun 26, 2023 11:56 AM Reporting Lab: [facility] [address] [id number] Performing Lab: [facility] [address] [facility] [address] HEP B SURFACE AG(wh) Non Reactive Non [...] Jun 26, 2023 11:56 AM Reporting Lab: [facility] [address] [facility] [address] Performing Lab: [facility] [address] [facility] [address] HEP B SURF AB(W) REACTIVE Non Reactive Jul 11, 2023 10:[address] [facility] HEPATITIS C AB(WRJ)w/Reflex Specimen Type: SERUM Comment: , Tests 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 If recent infection is suspected or other evidence suggests HCV infection, consider HCV RNA testing Ordering Provider: LAYTON GARCIA Report Released Date/Time: Jun 26, 2023 11:56 AM Reporting Lab: [facility] [address] [facility] [address] Performing Lab: [facility] [address] [facility] [address] HEPATITIS C AB(WRJ)w/Ref ria Non-Reactive Non-Reactive Jul 11, 2023 10:00 AM [facility] IRON+TIBC(P) Specimen Type: PLASMA Comment: , Tests performed on [employer] [id number] (405). Ordering Provider: LAYTON GARCIA Report Released Date/Time: Jun 26, 2023 11:56 AM Reporting Lab: [facility] [address] [facility] [address] Performing Lab: [facility] [address] [facility] [address] IRON 90 ug/dL 40-160 TIBC 318 ug/dL IRON SATURATION(P ) 28 >15 UIBC(P) 228 ug/dL 126-382
--- OUTSIDE RECORDS SUMMARY | 2023-10-05 14:46 | XMS_ITS | Encounter Summary ---
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 [place] Dec 18, 2020 [id number] [facility] LESLY ARNOLDD PATIENT [facility]. [place] Dec 18, 2020 [id number] [phone] LESLY ARNOLDD PATIENT [employer] PRESCRIPT ION RX Dec 18, 2020 [id number] [facility] CLAYTONTAZ PATIENT Selected Encounter This section includes the information on record at [place] for the Encounter. Date/Time Encounter Type Encounter Description Reason Provider Source Sep 27, 2023 10:00 AM Outpatient Encounter TELEPHONE PRIMARY CARE ICD-10-CM F41.9 Anxiety disorder, unspecified LAYTON GARCIA IHParrish Encounter Template Text not used by [facility] Assessments - Encounter Diagnoses This section includes the primary and secondary diagnoses documented for the Encounter. Date/Time Primary/Secondary Diagnosis Diagnosis Name Provider Source Sep 27, 2023 10:00 AM PRIMARY Anxiety disorder, unspecified RADHALAYTON L [facility] Plan of Treatment: Future Appointments (+ 6 months) and Future Tests (+/- 45 days) The Plan of Treatment section includes future care activities for the patient from all [place] [facility]. This section includes future appointments and future orders which are active, pending or scheduled. Future Appointments This section includes appointments that were scheduled to occur 6 months from the date of the Encounter, up to a maximum of 20 appointments. The data comes from all [facility] facilities. Appointment Date/Time Appointment Type Appointme nt Facility Name Dec 06, 2023 02:00 PM AMBULATORY - MEDICINE [facility] Active, Pending, and Scheduled Orders This section includes a listing of several types of active, pending, and scheduled orders, including clinic medications orders, diagnostic test orders, procedure orders and consult orders; where the start date of the order is 45 days before the date of the Encounter or 45 days after the date of theEncounter. The data comes from all [facility]. Test Date/Time Test Type Test Details Facility Name Sep 18, 2023 12:00 AM Laboratory - Chemi stry Order LIVER PROFILE LT GREEN(LI HEP) PLASMA SP [place] [facility] Social History: Smoking Status (Most current) and Tobacco Use (All prior to encounter date) This section includes the most current, and the historical, smoking and tobacco- related health factors from the [place] facility where the Encounter took place. Current Smoking Status This section includes the most current smoking, or tobacco-related health factor, from the [place] facility where the Encounter took place. Date/Time Current Smoking Status Comment Facil ity Mar 30, 2023 01:30 PM VA-TOBACCO FORMER USER [facility] Tobacco Use History This section includes a history of the smoking, or tobacco-related health factors, that were collected on or before the date of the Encounter. The data comes from the [place] facility where the Encounter took place. Date/Time Smoking Status/Tobacco Use Comment F acility Mar 30, 2023 01:30 PM [place]-TOBACCO QUIT 5 TO < [address] [facility] Encounter Notes: All associated encounter notes This section contains the clinical notes associated to the Encounter. 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: URGENCY: STATUS: COMPLETED Work Phone: Cell phone: ASSES/PLAN - # anxiety - MH consult - had VVC with Sushant Almaguer psychologist- Will stop sertraline 25 mg daily- he has not noticed effect- prefers counseling Established with [facility], thinks it is helpful # diarrhea- unchanged normal for me , working on diet- has not changed much - start immodium once in am PRN, repeat prn as instructed on package # elevated LFTs - iron and ferretin normal, Hep C non reactive Hep A & B pending discussed liver US he is concerned about cost, will recheck LFTs in 3 mos if negative for hepatitis may defer US for now- main concern is cost of care- working with [facility] for benefits - needs another check for back eval, has [place] for hearing (not showing in chart yet) #Meds: reviewed, reconciled #health Maint: vaccines reviewed: RTC - end of Nov- LABs prior for LFT [x] open access [x] Counseling of patient/family dominates over 50% of this 9 minute telephone encounter HPI: Things are good busy with work still trying to get service connections, has had significant cost for health care so far this year. Discussed getting labs for LFTs he would like to wait until Fall Discussed my concern for liver disease, explained there is no co pay for labs. He will check to see if he has been charged for labs. 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 Anxiety ([facility] [id number]) 2. Exposure to Potentially Hazardous Substance ([facility] [id number]) 3. Overweight SURGICAL HISTORY: MEDS: Active Outpatient Medications (excluding Supplies): Active Outpatient Medications Status 1) CHOLECALCIF 50MCG (D3-2,000UNIT) TAB TAKE ONE TABLET ACTIVE BY MOUTH ONCE DAILY FOR VITAMIN D DEFICIENCY WHEN HIGH DOSE COMPLETE Outside VA meds: ALLERGIES: Patient has answered NKA ROS: as above OBJ: Exam: Psych: Normal affect and demeanor. normal speech pattern Neurological:Alert, oriented X3 Medication Reconciliation: Perform Medication Reconciliation JLV Link Data on this list may not be complete. Please check JLV. Allergies/ADRs (Tool #5) FACILITY ALLERGY/ADR -------- No Remote Allergy/ADR Data available for this patient [facility] No Known Allergies Med Recon Liyah (Tool #1) INCLUDED IN THIS LIST: Alphabetical list of active outpatient prescriptions dispensed from this VA (local) and dispensed from another VA or [facility] facility (remote) as well as inpatient orders (local pending and active), local clinic medications, locally documented non-VA medications, and local prescriptions that have or been discontinued in the past 90 days. Non-VA Meds Last Documented On: Data not found NOTE The display of VA prescriptions dispensed from another [place] or [facility] facility (remote) is limited to active outpatient prescription entries matched to National Drug File at the originating site and may not include some items such as investigational drugs, compounds, etc. NOT INCLUDED IN THIS LIST: Medications self-entered by the patient into personal health records (i.e. [employer]) are NOT included in this list. Non-VA medications documented outside this [place], remote inpatient orders (regardless of status) and remote clinic medications are NOT included in this list. The patient and provider must always discuss medications the patient is taking, regardless of where the medication was dispensed or obtained. OUTPT CHOLECALCIF 50MCG (D3-2,000UNIT) TAB (Status = Active) TAKE ONE TABLET BY MOUTH ONCE DAILY FOR VITAMIN D DEFICIENCY WHEN HIGH DOSE COMPLETE Rx# [id number] Last Released: 09/12/23 Qty/Days Supply: Rx Expiration Date: 06/26/24 Refills Remainin Indication: FOR VITAMIN D DEFICIENCY OUTPT ERGOCALCIF 1,250MCG (D2-50,000UNIT) CAP (Status = ) TAKE ONE CAPSULE BY MOUTH ONCE A WEEK FOR VITAMIN D DEFICIENCY FOR 13 WEEKS Rx# [id number] Last Released: 06/27/23 Qty/Days Supply: Rx Expiration Date: 09/24/23 Refills Remainin Indication: FOR VITAMIN D DEFICIENCY SUPPLIES Comments: The patient's Essential Medication List for Review was used for reconciliation to address additions, deletions, and changes as reported by the patient/caregiver. The patient/caregiver indicates that medications are being taken as documented as described above. The patient/caregiver maintains their own up to date medication list. Was medication education provided for new medications or changes to medications? (including medication name, dose, route, reason for use, and potential side effects). Yes. Verbal education was provided to patient/caregiver and patient/caregiver verbalized understanding. Additional Comment: immodium No new medications or medication changes during this encounter. /karla/ LAYTON GARCIA APRN Signed: 09/27/2023 10:[address] [facility]
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
--- OUTSIDE RECORDS SUMMARY | 2023-10-05 14:46 | XMS_ITS | Encounter Summary ---
Author Name [facility] [facility] [place] Organization [place] Address [address] [place] [address] Care Team Providers Care Puppy Sitter Name Role Phone LAYTON GARCIA Primary Care [...] MEDICAL EXPENSE (OPT/PROF ) F.W. ROBLEDO [place]ENA [place] Dec 18, 2020 [id number] CLAYTONTAZ PATIENT [facility] HE[facility] F.W. ROBL[place] Dec 18, 2020 [id number] TAZ ARNOLD PATIENT MAXORPLUS PRESCRIPT ION RX Dec 18, 2020 [id number] [phone] TAZ ARNOLD PATIENT Selected Encounter This section includes the information on record at [place] for the Encounter. Date/Time Encounter Type Encounter Description Reason Provider Source Mar 21, 2023 02:00 PM PSYTX W PT 30 MINUTES MH INTGRTD CARE IND ICD-10-CM F43.20 Adjustment disorder, unspecified ALLINGTON,CASE Y EDWARD IHE Encounter Template Text not used by VA Assessments - Encounter Diagnoses This section includes the primary and secondary diagnoses documented for the Encounter. Date/Time Primary/Secondary Diagnosis Diagnosis Name Provider Source Apr 13, 2023 07:21 PM PRIMARY Adjustment disorder, unspecified RUPALI FRANCO JOAQUIN [facility] Plan of Treatment: Future Appointments (+ 6 months) and Future Tests (+/- 45 days) The Plan of Treatment section includes future care activities for the patient from all [place] treatmentfacilities. This section includes future appointments and future orders which are active, pending or scheduled. Future Appointments This section includes appointments that were scheduled to occur 6 months from the date of the Encounter, up to a maximum of 20 appointments. The data comes from all [place] treatment facilities. Appointment Date/Time Appointment Type Appointme nt Facility Name Mar 30, 2023 01:30 PM AMBULATORY - NONE [facility] Jun 16, 2023 09:30 AM AMBULATORY - NONE [facility] Jul 11, 2023 10:00 AM AMBULATORY - NONE [facility] Jul 12, 2023 10:00 AM AMBULATORY - MEDICINE [facility] [place] [facility] August 02, 2023 01:00 PM AMBULATORY - NONE [place] [facility] August 04, 2023 09:00 AM AMBULATORY - [place]IATRY [place] [facility] August 18, 2023 09:00 AM AMBULATORY - PS[place]CHIATRY [place] [facility] Sep 04, 2023 01:00 PM AMBULATORY - PSYCHIATRY ITE [facility] Encounter Notes: All associated encounter notes This section contains the clinical notes associated to the Encounter. Date/Time Encounter Note(s) Provider Source Mar 21, 2023 01:50 PM MENTAL HEALTH CONS ULT: LOCAL TITLE: Mental Health Consult Note STANDARD TITLE: MENTAL HEALTH CONSULT DATE OF NOTE: MAR 21, 2023@13:50 ENTRY DATE: MAR 21, 2023@13:51:09 AUTHOR: RUPALI FRANCO EXP COSIGNER: URGENCY: STATUS: COMPLETED PRIMARY CARE MENTAL HEALTH INTEGRATION (PC-MHI) THERAPY INTAKE [place] is a: 32 NEVER MALE Referred by: Candido Reason for Referral: anxiety around parenting 's appraisal of the referral problem (duration, frequency, intensity, triggering events, etc.): Pt reported that his girlfriend thinks he's brainwashed from the and gets frustrated with kids at times. Gets frustrated when directions aren't followed, can escalate. Happens regularly. Tends to shut down when frustated. His and girlfriend's time with kids feels rushed, adds to his stress. BRIEF SUMMARY OF PAST MENTAL HEALTH TREATMENT: [ ] Therapy: [ ] Medication: [ ] Inpatient Hospitalization: [ ] [place] denies history of mental health treatment FUNCTIONAL ASSESSMENT: Changes in support system: limited Changes in social and recreational activities: time is very limited Changes in performance of responsibilities at work, school, home, etc.: works 40-50 hours a week and has a couple other side jobs Changes in sleep, energy, concentration, or appetite: Mood during the past two weeks: stressed Trauma history: RISK SCREENING: [place] Suicide Rating Scale (CSRS) To complete:> Go to Mental Health Templates:Suicide Risk Screen Violence Risk: : Current Legal Issues: HEALTH BEHAVIORS: not assessed at this session RELEVANT OBJECTIVE OBSERVATIONS OUTSIDE OF NORMAL LIMITS: Pt was at home with a sick child at time of appointment. Was distracted due to this DIAGNOSTIC IMPRESSIONS AND TREATMENT SUMMARY: Pt dealing with frustration, anxiety related to parenting and lack of time. Pt prefers f2f follow up through [place] if possible. PLAN FOR FOLLOW-UP FROM [facility] APPOINTMENT: [ ]Return to [facility] clinic for follow-up therapy appointment Date and time negotiated with patient: [ ] [facility] clinic prescriber appointment: [ ] Referral to [facility] for therapy evaluation (internal [facility] consult) [ ] No follow-up in -[place] needed. [place] to return should treatment be needed or desired [ ] [place] declines follow-up at this time EMERGENCY CONTACT INFORMATION AND FOLLOW-UP: [X] I have given the the Veterans 10/10 crisis line number, , in the event that the experiences a MH emergency prior to their first appointment. [X] I have provided the with information on how to reach [facility] and/or their local CBOC with questions about follow-up plan or if the [place] wants to speak with a MH professional before their next appointment. [ ] [place] - [phone] [ ] [facility] [phone] [ ] [facility] [phone] [ ] [place] - [phone] [ ] [facility] [phone] [ ] [facility] [phone] [ ] [facility] [phone] [ ] [facility] - [phone] [X] had no further questions or concerns and agrees to the plan above. [ ] Co-signing Primary Care Provider regarding: Time spent: 25 minutes /karla/ RUPALI FRANCO Clinical Psychologist Signed: 04/13/2023 19:24 RUPALI FRANCO [facility]
--- OUTSIDE RECORDS SUMMARY | 2023-10-05 14:46 | XMS_ITS | Encounter Summary ---
Author Name [facility] [place] Organization [place] Address [address] [place] [address] Care Team Providers Care Insulation Applicator Name Role Phone LAYTON GARCIA Primary Care [...] MEDICAL EXPENSE (OPT/PROF ) F.W. ROBLEDO [place] Dec 18, 2020 [id number] ATZ ARNOLD PATIENT [facility] M[facility] HEALTH F.W. ROBL[place] Dec 18, 2020 [id number] [phone] TAZ ARNOLD PATIENT MAXORPLUS PRESCRIPT ION RX Dec 18, 2020 [id number] TAZ ARNOLD PATIENT Selected Encounter This section includes the information on record at [place] for the Encounter. Date/Time Encounter Type Encounter Description Reason Pro vider Source July 24, 2023 10:31 AM Outpatient Encounter ADMIN PAT ACTIVTIES (MASNONCT) IHE Encounter Template Text not used by [place] Plan of Treatment: Future Appointments (+ 6 [...] PM AMBULATORY - NONE [place] [facility] August 04, 2023 09:00 AM AMBULATORY - PSYCHIATRY [place] [facility] August 18, 2023 09:00 AM AMBULATORY - PSYCHIATRY [place] [facility] Sep 04, 2023 01:00 PM AMBULATORY - PSYCHIATRY [place] [facility] Sep 27, 2023 10:00 AM AMBULATORY - MEDICINE [facility] E [place]IVER [facility] Sep 27, 2023 02:00 PM AMBULATORY - PSYCHIATRY [place] [facility] Dec 06, 2023 02:00 PM AMBULATORY - MEDICINE [facility] [place] [facility] Lab Results: +/- 30 days of [...] Range Comment Jul 11, 2023 10:00 AM [facility] HEP B CORE,TOTAL(W) Specimen Type: SERUM [...] Jun 26, 2023 11:56 AM Reporting Lab: [facility] [address] [facility] [address] Performing Lab: [address] [address] HEP B CORE,TOTAL(W ) Non Reactive Non Reactive Jul 11, 2023 10:00 AM [facility] HBSAG PANEL WITH REFLEX CONFIRMATION(WH) Specimen Typ e: SERUM Comment: A Reactive result (Positive prior to 12/31/12) is diagnostic of acute or chronic hepatitis B infection. The presence of Hepatitis B surface antigen is frequently associated with infectivity. Ordering Provider: LAYTON GARCIA Report Released Date/Time: Jun 26, 2023 11:56 AM Reporting [facility]: [facility] [address] [facility] [address] Performing Lab: [facility] [address] [facility] [address] HEP B SURFACE AG(wh) Non Reactive Non Reactive Jul 11, 2023 10:00 AM [facility] HEP B SURF AB(W) Specimen Type: SERUM [...] 2023 11:56 AM Reporting Lab: [facility] [address] [facility] [address] Performing Lab: [facility] [address] [facility] [address] HEP B SURF AB(W) REACTIVE Non Reactive Jul 11, 2023 10:00 AM [facility] HEPATITIS C AB(WRJ)w/Reflex Specimen Type: SERUM Comment: , Tests performed on [employer] [place] [id number] (405) No HCV antibody detected. If recent infection is suspected or other evidence suggests HCV infection, consider HCV RNA testing Ordering Provider: LAYTON GARCIA Report Released Date/Time: Jun 26, 2023 11:56 AM Reporting Lab: [facility] [address] [facility] [address] Performing Lab: [facility] [address] [facility] [address] HEPATITIS C AB(WRJ)w/Ref ria Non-Reactive Non-Reactive Jul 11, 2023 10:00 AM [facility] IRON+TIBC(P) Specimen Type: PLASMA Comment: , Tests performed on [place] [id number] (405). Ordering Provider: LAYTON GARCIA Report Released Date/Time: Jun 26, 2023 11:56 AM Reporting Lab: [facility] [address] [facility] [address] Performing Lab: [facility] [address] [facility] [address] IRON 90 ug/dL 40-160 TIBC 318 ug/dL IRON SATURATION(P ) 28 >15 UIBC(P) 228 ug/dL 126-382 Encounter Notes: All associated encounter notes This section contains the clinical notes associated to the Encounter. Date/Time Encounter Note(s) Provider Source July 24, 2023 10:31 AM ADMINISTRATIVE NOT E: LOCAL TITLE: CCC: SCHEDULING ADMINISTRATION STANDARD TITLE: ADMINISTRATIVE NOTE DATE OF NOTE: JULY 24, 2023@10:31:56 ENTRY DATE: JULY 24, 2023@10:31:56 AUTHOR: MODE HOLLIDAY EXP COSIGNER: URGENCY: STATUS: COMPLETED CCC: SCHEDULING ADMINISTRATION Has ADDENDA Patient Demographics Patient Name: TAZ ARNOLD Patient Primary Phone: [phone] Patient Primary [address]: [address] [place] [id number] Patient : 1990 Patient Age: 32 Call Back Number: [phone] Caller/Recipient Relation to Patient: Self Administrative Administrative Note Reason: Other Administrative Note Comments: PT CALLING TO DISCUSS LAB RESULTS AND IF HE IS STILL HAVING THE ULTRASOUND DONE 07/25 /karla/ MODE HOLLIDAY Signed: 07/24/2023 10:32 Receipt Acknowledged By: 07/26/2023 11:33 /karla/ RISHI PANDA LPN 07/25/2023 13:47 /karla/ ZAIRE LYNCH Registered Nurse 07/25/2023 ADDENDUM STATUS: COMPLETED Pt. is contacted. Advised him that it is up to him if he wants to have the [place]. /karla/ ZAIRE LYNCH Registered Nurse Signed: 07/25/2023 13:49 [facility]
--- OUTSIDE RECORDS SUMMARY | 2023-10-05 14:46 | XMS_ITS | Encounter Summary ---
Author Name [place] Organization [place] Address [address] [place] [address] Care Team Providers Care Cycle Analyst Name Role Phone LAYTON GARCIA Primary Care [...] MEDICAL EXPENSE (OPT/PROF ) F.W. ROBLEDO MALENA ID Dec 18, 2020 [id number] [facility] [phone] TAZ ARNOLD PATIENT [facility] MENTAL HEALTH F.W. ROBLEDO MALENA ID Dec 18, 2020 [id number] [phone] TAZ ARNOLD PATIENT MAXORPLUS PRESCRIPT ION RX Dec 18, 2020 [id number] [facility] LESLY ARNOLDD PATIENT Selected Encounter This section includes the information on record at [place] for the Encounter. Date/Time Encounter Type Encounter Description Reason Provider Source August 18, 2023 09:00 AM PSYCH DIAGNOSTIC EVALUATION PCM[facility] INDIV ICD-10-CM F41.9 Anxiety disorder, unspecified KWAN SALOMON Encounter Template Text not used by VA Assessments - Encounter Diagnoses This section includes the primary and secondary diagnoses documented for the Encounter. Date/Time Primary/Secondary Diagnosis Diagnosis Name Provider Source August 18, 2023 09:59 AM PRIMARY Anxiety disorder, unspecified KWAN SALOMON [facility] Plan of Treatment: Future Appointments (+ 6 months) and Future Tests (+/- 45 days) The Plan of Treatment section includes future care activities for the patient from all [facility] This section includes future appointments and future orders which are active, pending or scheduled. Future Appointments This section includes appointments that were scheduled to occur 6 months from the date of the Encounter, up to a maximum of 20 appointments. The data comes from all [facility]. Appointment Date/Time Appointment Type Appointme nt Facility Name Sep 04, 2023 01:00 PM AMBULATORY - PSYCHIATRY [facility] Sep 27, 2023 10:00 AM AMBULATORY - MEDICINE [facility] Sep 27, 2023 02:00 PM AMBULATORY - PSYCHIATRY [facility] Dec 06, 2023 02:00 PM AMBULATORY - MEDICINE [facility] Active, Pending, and Scheduled Orders This section includes a listing of several types of active, pending, and scheduled orders, including clinic medications orders, diagnostic test orders, procedure orders and consult orders; where the start date of the order is 45 days before the date of the Encounter or 45 days after the date of theEncounter. The data comes from all [facility]. Test Date/Time Test Type Test Details Facility Name Sep 18, 2023 12:00 AM Laboratory - Chemi stry Order LIVER PROFILE LT GREEN(LI HEP) PLASMA SP [facility] Social History: Smoking Status (Most current) and Tobacco Use (All prior to encounter date) This section includes the most current, and the historical, smoking and tobacco- related health factors from the [place] facility where the Encounter took place. Current Smoking Status This section includes the most current smoking, or tobacco-related health factor, from the [place] facility where the Encounter took place. Date/Time Current Smoking Status Carlos cesar Mar 30, 2023 01:30 PM VA-TOBACCO FORMER USER [facility] Tobacco Use History This section includes a history of the smoking, or tobacco-related health factors, that were collected on or before the date of the Encounter. The data comes from the [place] facility where the Encounter took place. Date/Time Smoking Status/Tobacco Use Comment F acility Mar 30, 2023 01:30 PM VA-TOBACCO QUIT 5 TO < 15 YRS [facility] Encounter Notes: All associated encounter notes This section contains the clinical notes associated to the Encounter. Date/Time Encounter Note(s) Provider Source August 18, 2023 09:39 AM SUICIDE PREVENTION RISK ASSESSMENT SCREENING NOTE: LOCAL TITLE: SUICIDE/HOMICIDE RISK ASSESSMENT STANDARD TITLE: SUICIDE PREVENTION RISK ASSESSMENT SCREENING NOT DATE OF NOTE: AUGUST 18, 2023@09:39 ENTRY DATE: AUGUST 18, 2023@09:39:57 AUTHOR: KWAN SALOMON COSIGNER: URGENCY: STATUS: COMPLETED ASSESSMENT OF DANGER TO OTHERS: During the past 6 months have you had any thoughts about harming someone else? No Have you ever tried to seriously harm someone else in the past? No No significant current risk of harm to others. ASSESSMENT OF HOMICIDE RISK: Low [place]-Suicide Severity Rating Scale (C-SSRS Screener) 1. Over [...] required due to responses to other questions. Is the [place] Screen Positive? No Risk Factors Recent psychosocial stressors Please Describe: Relationship problems/strain (GF of 5 yrs) Access to lethal means Please Describe: guns are kept locked and maintained as safe Protective Factors and Reasons for Living Access to and engagement with health care Reports motivation for medical treatment Access to and engagement with mental health care Reports motivation for mental health treatment Has meaningful family relationships Has a significant other Has child-related responsibilities or responsibilities for another person Hope for the future Social context support system Strong desire to live /karla/ CHILO VIVAS Home Appliance Tech Signed: 08/18/2023 09:59 KWAN SALOMON [facility] August 18, 2023 09:20 AM MENTAL HEALTH CONS ULT: LOCAL TITLE: PCM[facility] INITIAL EVALUATION CONSULT STANDARD TITLE: MENTAL HEALTH CONSULT DATE OF NOTE: AUGUST 18, 2023@09:20 ENTRY DATE: AUGUST 18, 2023@09:20:21 AUTHOR: KWAN SALOMON EXP COSIGNER: URGENCY: STATUS: COMPLETED PRIMARY CARE MENTAL HEALTH INTEGRATION (PC-MHI) THERAPY INTAKE [place] is a: 32 NEVER MALE Referred by: LIT PACT Reason for Referral: Looking for help with behavioral changes. My attitude and behavior is very related. Get help with my anxiety. Notes that his spouse has encouraged him to seek therapy. 's appraisal of the referral problem (duration, frequency, intensity, triggering events, etc.): Notes that he has been experiencing a short fuse for over a year. Describes this as short fuse, irritability, frustration on an almost daily basis. Notes that the house being unclean is a trigger. BRIEF SUMMARY OF PAST MENTAL HEALTH TREATMENT: [X] Therapy: [place] the [place] episode of care. Same issues/problems of focus. [ ] Medication: [ ] Inpatient Hospitalization: [ ] denies history of mental health treatment FUNCTIONAL ASSESSMENT: Changes in support system: None. Changes in social and recreational activities: None. 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 Changes in sleep, energy, concentration, or appetite: None. Mood during the past two weeks:good Trauma history:Denies. 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 RISK SCREENING: [place] Suicide Rating Scale (CSRS) CSSR-S completed 08/17; low acute, low chronic Violence Risk: None. Current Legal Issues: None. HEALTH BEHAVIORS: Alcohol: Limited. I enjoy a nice cold drink every now and again. Notes that he drinks 2-3 mixed drinks once every other week. Other Substances: None Tobacco: None. Caffeine (coffee, tea, soda, energy drinks, other):Red bull - at least one/day. Health and Medical Concerns: none Strengths: Is willing to seek out and engage in his health and wellbeing. RELEVANT OBJECTIVE OBSERVATIONS OUTSIDE OF NORMAL LIMITS: None DIAGNOSTIC IMPRESSIONS AND TREATMENT SUMMARY: r/o Generalized Anxiety d/o, and intermittent explosive d/o, problems in relationship with partner. 32 year old seeking psychotherapy to address behavioral issues. Notes that he often has a short fuse and questions if he is experiencing anxiety. Will benefit to include psychometrics in assessment, and collaborate towards treatment goals at next session. Risk Assessment was rated as low acute, and low chronic given CSSR-S completed today. PLAN FOR FOLLOW-UP FROM [facility] APPOINTMENT: [X[facility] Date and time negotiated with patient: 09/04/23 at 1pm [ ] -I clinic prescriber appointment: [ ] [facility]erral to [facility] for therapy evaluation (internal [facility] consult) [ ] [facility]. to return should treatment be needed or desired [ ] [place] declines follow-up at this time EMERGENCY CONTACT INFORMATION AND FOLLOW-UP: [X] I have given the the Veterans 10/10 crisis line number, , in the event that the experiences a MH emergency prior to their first appointment. [X] I have provided the [place] with information on how to reach [facility] and/or their local CBOC with questions about follow-up plan or if the [place] wants to speak with a MH professional before their next appointment. [ ] [place] - [phone] [ ] [place] [facility] [phone] [ ] [place] - [phone] [ ] [facility] [phone] [X] [facility] [phone] [ ] [place] [facility] [phone] [ ] [place] [facility] [phone] [ ] [facility] - [phone] [X] had no further questions or concerns and agrees to the plan above. [ ] Co-signing Primary Care Provider regarding: Time spent: 50 min /karla/ CHILO VIVAS Home Appliance Tech Signed: 08/18/2023 09:59 KWAN SALOMON [facility]
--- OUTSIDE RECORDS SUMMARY | 2023-10-05 14:47 | XMS_ITS | Encounter Summary ---
Author Name [facility] [place] Address [address] [place] [address] Care Team Providers Care Wooden Fence Erector Name Role Phone LAYTON AGRCIA Primary Care Provider Unavailabl e Insurance Providers: [...] MEDICAL EXPENSE (OPT/PROF ) F.W. ROBLEDO [place] Dec 18, 2020 [id number] CLAYTONTAZ PATIENT [employer] [facility] [facility] MENTAL HEALTH F.W. ROBLEDO [place] Dec 18, 2020 [id number] CLAYTONTAZ PATIENT MAXORPLUS PRESCRIPT ION RX Dec 18, 2020 [id number] CLAYTONTAZ PATIENT Selected Encounter This section includes the information on record at [place] for the Encounter. Date/Time Encounter Type Encounter Description Reason Pro vider Source Nov 01, 2022 12:00 AM Outpatient Encounter EVENT (HISTORICAL) IHE Encounter Template Text not used by VA Plan of Treatment: Future Appointments (+ 6 months) and Future Tests (+/- 45 days) The Plan of Treatment section includes future care activities for the patient from all [place] treatmentfacilities. This section includes future appointments and future orders which are active, pending or scheduled. Future Appointments This section includes appointments that were scheduled to occur 6 months from the date of the Encounter, up to a maximum of 20 appointments. The data comes from all [place] treatment facilities. Appointment Date/Time Appointment Type Appointme nt Facility Name Mar 08, 2023 02:30 PM AMBULATORY - MEDICINE [facility] Mar 21, 2023 02:00 PM AMBULATORY - PSYCHIATRY [facility] Mar 30, 2023 01:30 PM [facility] Immunizations: All administered on the encounter date This section contains immunizations associated to the Encounter. Immunization Series Date Issued Reaction Comments INFLUENZA, UNSPECIFIED FORMULATION Nov 01, 2022
--- OUTSIDE RECORDS SUMMARY | 2023-10-05 14:47 | XMS_ITS ---
Author Name [facility] [place] Address [address] [place] [address] Care Team Providers Care Director Of Communications Name Role Phone LAYTON GARCIA Primary Care [...] MEDICAL EXPENSE (OPT/PROF ) F.W. [facility] [place] Dec 18, 2020 [id number] TAZ ARNOLD PATIENT [employer] [facility] [place] Dec 18, 2020 [id number] TAZ ARNOLD PATIENT MAXORPLUS PRESCRIPT ION RX Dec 18, 2020 [id number] [phone] TAZ ARNOLD PATIENT Selected Encounter This section includes the information on record at [place] for the Encounter. Date/Time Encounter Type Encounter Description Reason Pro vider Source Feb 22, 2023 02:09 PM Outpatient Encounter ADMIN PAT ACTIVTIES (MASNONCT) IHE Encounter Template Text not used by [place] Plan of Treatment: Future Appointments (+ 6 [...] 08, 2023 02:30 PM AMBULATORY - MEDICINE WHIT Parrish [facility] Mar 21, 2023 02:00 PM AMBULATORY - PSYCHIATRY ITParrish [facility] Mar 30, 2023 01:30 PM AMBULATORY - NONE [facility] Jun 16, 2023 09:30 AM AMBULATORY - NONE [facility] Jul 11, 2023 10:00 AM AMBULATORY - NONE [facility] Jul 12, 2023 10:00 AM AMBULATORY - MEDICINE AMANDA [facility] August 02, 2023 01:00 PM AMBULATORY - NONE WHITE RI YULI [facility] August 04, 2023 09:00 AM AMBULATORY - PSYCHIATRY ITParrish [facility] August 18, 2023 09:00 AM AMBULATORY - PSYCHIATRY ITParrish [facility] Encounter Notes: All associated encounter notes This section contains the clinical notes associated to the Encounter. Date/Time Encounter Note(s) Provider Source Feb 22, 2023 03:03 PM ADDENDUM: LOCAL TITLE: Addendum STANDARD TITLE: ADDENDUM DATE OF NOTE: FEB 22, 2023@15:03:18 ENTRY DATE: FEB 22, 2023@15:03:20 AUTHOR: DEAN CHRISTENSEN EXP COSIGNER: URGENCY: STATUS: COMPLETED Patient assigned to [facility], scheduled for 60 min. appt. 03/30/2023 Scheduled for 30 min. VVC to establish care on 03/08/23 Records have been requested from [facility] - Upon receipt, medical records will be forwarded to [facility] and [facility] for scanning. Appointment letter mailed: email, address and phone number confirmed. Patient encouraged to bring all active medications and supplements to their appt. [employer] Access Team: Patient requests access to [employer]. Please contact to process enrollment. Email address confirmed. /karla/ DEAN CHRISTENSEN Signed: 02/22/2023 15:04 Receipt Acknowledged By: 02/23/2023 09:49 /es/ RISHI PANDA MANAGER OF CUSTOMER BILLING 02/24/2023 08:48 /es/ NAMRATA PATTON Civil Engineering Project Manager 02/24/2023 12:17 /es/ MEY KEITA AMSA 02/22/2023 15:20 /es/ ZAIRE LYNCH Registered Nurse --- Original Document --- 02/22/23 Administrative Note/Primary Care: would like to be assigned to [facility]. /karla/ MICKEY RANGEL Signed: 02/22/2023 14:09 Receipt Acknowledged By: 02/22/2023 15:06 /karla/ DEAN CHRISTENSEN 02/22/2023 ADDENDUM STATUS: COMPLETED VVC test successful. will be using his iphone. Enoch has been downloaded. Email address listed is correct. Info Only: [facility] Capable: Patient has successfully tested or used [employer] Connect. /luli RANGEL Signed: 02/22/2023 14:30 DEAN CHRISTENSEN [facility] [facility] Feb 22, 2023 02:09 PM PRIMARY CARE ADMIN ISTRATIVE NOTE: LOCAL TITLE: Administrative Note/Primary Care STANDARD TITLE: PRIMARY CARE ADMINISTRATIVE NOTE DATE OF NOTE: FEB 22, 2023@14:09 ENTRY DATE: FEB 22, 2023@14:09:22 AUTHOR: MICKEY RANGEL EXP COSIGNER: URGENCY: STATUS: COMPLETED Administrative Note/Primary Care Has ADDENDA would like to be assigned to [facility]. /luli RANGEL Signed: 02/22/2023 14:09 Receipt Acknowledged By: 02/22/2023 15:06 /karla/ DEAN CHRISTENSEN 02/22/2023 ADDENDUM STATUS: COMPLETED VVC test successful. will be using his iphone. Enoch has been downloaded. Email address listed is correct. Info Only: [facility] Capable: Patient has successfully tested or used [facility]. /es/ MICKEY RANGEL Signed: 02/22/2023 14:30 02/22/2023 ADDENDUM STATUS: COMPLETED Patient assigned to [facility], scheduled for 60 min. appt. 03/30/2023 Scheduled for 30 min. VVC to establish care on 03/08/23 Records have been requested from [facility] - Upon receipt, medical records will be forwarded to [facility] and [facility] for scanning. Appointment letter mailed: email, address and phone number confirmed. Patient encouraged to bring all active medications and supplements to their appt. [employer] Access Team: Patient requests access to [employer]. Please contact to process enrollment. Email address confirmed. /es/ DEAN CHRISTENSEN Signed: 02/22/2023 15:04 Receipt Acknowledged By: * AWAITING SIGNATURE * RISHI PANDA * AWAITING SIGNATURE * NAMRATA PATTON * AWAITING SIGNATURE * MEY KEITA * AWAITING SIGNATURE * ZAIRE LYNCH TRACY L [facility]
--- NOTE | 2023-10-05 16:00 | DI.RAD_ITS ---
Exam(s) XR KNEE LT 4V AP,LAT,SPENSER,PAT EXAM: XR KNEE LT 4V AP,LAT,SPENSER,PAT CLINICAL HISTORY: knee pain, redness, swelling. TECHNIQUE: 2D digital imaging was performed. Three views. COMPARISON: No exams were available for comparison FINDINGS: BONES: No acute fracture is present. No bony destructive lesion is seen. JOINTS: The knee is normally aligned. No joint effusion is seen. Joint spaces are maintained. No d egenerative changes. SOFT TISSUE: Edema, greatest anterior to patella. This could indicate prepatellar bursitis. No abno rmal gas collection or foreign body. IMPRESSION: Prepatellar soft tissue swelling. No bony abnormality. DATA REPOSITORY: RADIATION DOSE DELIVERED:
--- NOTE | 2023-10-05 16:04 | ED.GENADUL_ITS ---
Discharge Plan Disposition Patient Disposition: Home Condition: Good Discharge Details Clinical Impression: Bursitis, prepatellar, left Primary Care Provider: None,None ED Provider: Sofie Rogers Home Meds and New Rx's Prescriptions: New clindamycin HCl 300 mg Capsule 450 mg PO TID 7 Days Qty: 32 0RF dexamethasone 4 mg Tablet 8 mg PO NOW 3 Days Qty: 6 0RF Discontinued cephalexin 500 mg capsule 500 mg PO TID Discharge Instructions Instructions: Prepatellar Bursitis, Prepatellar Bursitis Exercises Additional Instructions: Please call your primary care provider first thing in the morning to schedule follow-up appointment for reassessment. A referral to physical therapy may be necessary if you are not feeling significantly better in the next week or so. I have changed her antibiotic to clindamycin. Please take as prescribed. I recommend that you use yogurt such as Activia with each dose to prevent antibiotic associated diarrhea. You may use ibuprofen 600 mg every 8 hours as needed for discomfort. Return to emergency care if you develop worsening redness/streaking up the leg, fever/chills, general malaise, distal numbness/tingling, difficulty bending the knee, or if you are very worried and need to be rechecked again immediately HPI General Date/Time Provider Initiated Documentation: 10/05/23 13:57 . HPI Narrative: Wes is a 32-year-old male who presents to the emergency department today for evaluation of continued redness/swelling/discomfort to left knee. He reports that 2 weeks ago he scraped his knee on a truck hitch, had no problems for the next week and a half, but over the weekend he was walking around a lot and cutting trees. No known trauma to the knee. Monday morning he woke up with redness/swelling/mild discomfort to the left knee, rated 1 out of 10. He was seen in urgent care in [place], diagnosed with infectious bursitis and given 1 g ceftriaxone as well as Keflex. He is concerned because he was told to come back to care if symptoms did not get significantly better in a couple of days. He denies associated fever/chills, general malaise, nausea/vomiting, abdominal pain, change in bowel or bladder function, other rashes or joint/muscle pains, difficulty walking, decreased range of motion, distal numbness/tingling. No history of immunocompromise, diabetes, IVDU, or antibiotic resistant infections. Physical exam remarkable for mild swelling/erythema/warmth to left knee, full painless range of motion to knee. Mild crepitus noted with palpation of knee. Distal pulses intact. Normal gait. Patient is alert and interactive, no acute distress. DDx includes but is not limited to: cellulitis, Prepatellar bursitis, gout, inflammatory arthritis, fracture less likely. No red flags concerning for septic arthritis at this time. Dr. Morales also to bedside to evaluate knee, aspiration not indicated at this time. I independently interpreted the following tests: CBC unremarkable. Sed rate and CRP both elevated. Knee x-ray unremarkable, only prepatellar soft tissue swelling noted, consistent with prepatellar bursitis. History and presentation consistent with prepatellar bursitis. Will treat with clindamycin to enhance coverage and short course of steroids for inflammation. Recommend follow-up with PCP if symptoms not significantly improved, as orthopedics referral may be indicated. Related Data Home Medications ?Medication ?Instructions ?Recorded ?Confirmed clindamycin HCl 300 mg capsule 450 mg (1.5 x 300 mg) PO TID 7 10/05/23 days #32 caps dexamethasone 4 mg tablet 8 mg (2 x 4 mg) PO NOW 3 days #6 10/05/23 tabs Previous Rx's ?Medication ?Instructions ?Recorded clindamycin HCl 300 mg capsule 450 mg (1.5 x 300 mg) PO TID 7 10/05/23 days #32 caps dexamethasone 4 mg tablet 8 mg (2 x 4 mg) PO NOW 3 days #6 10/05/23 tabs Allergies Allergy/AdvReac Type Severity Reaction Status Date / Time No Known Allergies Allergy Unverified 10/05/23 13:53 General Stated Complaint: Orthopedic EDEN: 3 Review of Systems Narrative: see HPI Exam Const General: cooperative, healthy appearing, comfortable, no acute distress and well developed Nutritional Appearance: average body habitus Resp Effort & Inspection: normal respiratory effort and able to speak in complete sentences Skin Trauma: abrasion (L knee) Extrem Right lower extremity: normal to inspection Left lower extremity: full ROM, normal capillary refill, no joint enlargement and knee Details: tenderness, swelling (prepatellar), normal ROM and abrasion (small healed abrasion noted to distal knee); no lacerations, no foreign bodies, no penetrating wound and no deformity Course Vital Signs Vital signs: Vital Signs Temperature 36.4 C L 10/05/23 13:50 Pulse 101 H 10/05/23 13:50 Respiratory Rate 16 10/05/23 13:50 Blood Pressure 158/64 H 10/05/23 13:50 Pulse Oximetry 98 10/05/23 13:50 Temperature 36.4 C L 10/05/23 13:50 Pulse 101 H 10/05/23 13:50 Respiratory Rate 16 10/05/23 13:50 Blood Pressure 158/64 H 10/05/23 13:50 Pulse Oximetry 98 10/05/23 13:50 Pain Level 3 10/05/23 13:50 Medical Decision Making Imaging Data Radiologic Study: Radiologist's impression: Exam(s) XR KNEE LT 4V AP,LAT,SPENSER,PAT EXAM: XR KNEE LT 4V AP,LAT,SPENSER,PAT CLINICAL HISTORY: knee pain, redness, swelling. TECHNIQUE: 2D digital imaging was performed. Three views. COMPARISON: No exams were available for comparison FINDINGS: BONES: No acute fracture is present. No bony destructive lesion is seen. JOINTS: The knee is normally aligned. No joint effusion is seen. Joint spaces are maintained. No degenerative changes. SOFT TISSUE: Edema, greatest anterior to patella. This could indicate prepatellar bursitis. No abnormal gas collection or foreign body. IMPRESSION: Prepatellar soft tissue swelling. No bony abnormality. Quality:[facility] Health Related Social Needs: No Data to Display PFSH All Active Problems (Updated 10/05/23 @ 17:29 by Sofie Orourke) Bursitis, prepatellar, left (Acute) Social History Smoking/Tobacco Use Status: Former Tobacco Use Smoking risk assessment performed?: Yes Drug use: Never Housing: house Do you feel safe at home: Yes Do you feel safe in your relationship?: Yes
[2023-10-05 16:36] LABS: Abs Immature Grans 0.03 10^3/uL (0.0-0.06); Absolute Basophil Count 0.03 10^3/uL (0.0-0.2); Absolute Eosinophil Count 0.23 10^3/uL (0.0-0.7); Absolute Lymphocyte Count 2.51 10^3/uL (1.2-3.4); Absolute Monocyte Count 0.67 10^3/uL (0.1-0.8); Absolute Neutrophil Count 5.65 10^3/uL (1.2-6.7); Basophils % 0.3 %; Eosinophils % 2.5 %; HCT 45.7 % (40.0-50.0); HGB 15.5 g/dL (13.5-17.5); Immature Grans % 0.3 %; Lymphocytes % 27.5 %; MCH 30.8 pg (27.0-33.0); MCHC 33.9 % (32.0-36.0); MCV 91 fL (80-95); MPV 10.5 fL (8.0-11.0); Monocytes % 7.3 %; Neutrophils % 62.1 %; Platelet Count 222 10^3/uL (130-400); RBC 5.03 10^6/uL (4.36-5.78); RDW 11.9 % (11.8-14.1); RDW-SD 39.8 fL; WBC 9.12 10^3/uL (4.4-10.8)
[2023-10-05 16:39] LABS: ESR 31 mm/hr (0-15)
[2023-10-05 16:47] LABS: C-Reactive Protein 2.57 mg/dL (<or=0.5); Uric Acid 5.5 mg/dL (3.5-7.2)
[2023-10-05] MEDS: Clindamycin 150 MG CAP 450 MG PO (17:39)
[2023-10-05] MEDS: Dexamethasone 4 MG TAB 8 MG PO (17:48)
== END 2023-10-05 17:50 | disposition home or self-care (01) ==
LOC: ER 17:29 → RED 17:50
PROVIDERS: Emergency Provider Nurse Practitioner Family
DX: M70.42 Prepatellar bursitis, left knee (principal); Z87.891 Personal history of nicotine dependence
CPT/HCPCS: 36415; 85652; 99284; 73564; 84550; 85025; 86140; 99283; J8540

== ENCOUNTER 2024-04-17 20:54 | Outpatient (REF) | payer OTHER, SELFPAY ==
--- OUTSIDE RECORDS SUMMARY | 2024-04-17 20:56 | XMS_ITS | Encounter Summary ---
Author Name [facility] [place] [facility] [place] Address [address] [place] [address] Care Team Providers Care Small Boat Engineer Name Role Phone CONRAD MCCALLUM Primary Care Provider Unavailab le Insurance Providers: All historical and current Section [...] [facility]. [facility] [place] Dec 18, 2020 [id number] [phone] CLAYTONWES PATIENT [employer] [facility] [facility] [facility] [place] Dec 18, 2020 [id number] [phone] CLAYTONWES PATIENT MAXORPLUS PRESCRIPT ION RX Dec 18, 2020 [id number] CLAYTONWES PATIENT Selected Encounter This section includes the information on record at [place] for the Encounter. Date/Time Encounter Type Encounter Description Reason Provider Source Sep 27, 2023 02:08 PM Outpatient Encounter PCMME KWAN DAHL IHParrish Encounter Template Text not used by [place] Plan of Treatment: Future Appointments (+ 6 months) and Future Tests (+/- 45 days) The Plan of Treatment section includes future care activities for the patient from all [place] [facility]. This section includes future appointments and future orders which are active, pending or scheduled. Future Appointments This section includes appointments that were scheduled to occur 6 months from the date of the Encounter, up to a maximum of 20 appointments. The data comes from all [facility] facilities. Appointment Date/Time Appointment Type Appointme nt Facility Name Oct 11, 2023 09:30 AM AMBULATORY - MEDICINE AMANDA [facility] Dec 06, 2023 02:00 PM AMBULATORY - MEDICINE AMANDA [facility] Dec 26, 2023 02:00 PM AMBULATORY - NONE [facility] Jan 05, 2024 08:15 AM AMBULATORY - NONE [facility] Active, Pending, and Scheduled Orders This section includes a listing of several types of active, pending, and scheduled orders, including clinic medications orders, diagnostic test orders, procedure orders and consult orders; where the start date of the order is 45 days before the date of the Encounter or 45 days after the date of theEncounter. The data comes from all [facility]. Test Date/Time Test Type Test Details Facility Name Sep 18, 2023 12:00 AM Laboratory - Chemi stry Order LIVER PROFILE LT GREEN(LI HEP) PLASMA SP JOA[facility]IN [facility] Encounter Notes: All associated encounter notes This [...] Date Given: 09/27/2023 Clinician: Kwan Posadas Location: [place] [address] [place]: Wes Collins Tatiana SSN: [id number] : [birth year]) Gender: Man [...] diagnostic activities and procedures. /karla/ CHILO VIVAS Patents Examiner Signed: 09/27/2023 14:08 KWAN POSADAS [facility]
--- OUTSIDE RECORDS SUMMARY | 2024-04-17 20:56 | XMS_ITS | Encounter Summary ---
Author Name [facility] [place] [facility] [place] Address [address] [place] [address] Care Team Providers Care Coal Unloader Name Role Phone CONRAD MCCALLUM Primary Care [...] MEDICAL EXPENSE (OPT/PROF ) F.W. RO[facility] [place] Dec 18, 2020 [id number] [facility] TAZ ARNOLD PATIENT [employer] [facility] [facility] MENTAL HEALTH [facility] [place] [place] Dec 18, 2020 [id number] [phone] TAZ ARNOLD PATIENT MAXORPLUS PRESCRIPT ION RX Dec 18, 2020 [id number] LESLY ARNOLDD PATIENT Selected Encounter This section includes the information on record at [place] for the Encounter. Date/Time Encounter Type Encounter Description Reason Provider Source Oct 11, 2023 09:30 AM Outpatient Encounter TELEPHONE PRIMARY CARE ICD-10-CM M71.162 Other infective bursitis, left knee RADHA,LAYTON L IHE Encounter Template Text not used by [place] Assessments - Encounter Diagnoses This section includes the primary and secondary diagnoses documented for the Encounter. Date/Time Primary/Secondary Diagnosis Diagnosis Name Provider Source Oct 11, 2023 09:30 AM PRIMARY Other infective bursitis, left knee RADHA,LAYTON Robbins [facility] Plan of Treatment: Future Appointments (+ 6 months) and Future Tests (+/- 45 days) The Plan of Treatment section includes future care activities for the patient from all [place] [facility] This section includes future appointments and future orders which are active, pending or scheduled. Future Appointments This section includes appointments that were scheduled to occur 6 months from the date of the Encounter, up to a maximum of 20 appointments. The data comes from all [facility]. Appointment Date/Time Appointment Type Appointme nt Facility Name Dec 06, 2023 02:00 PM AMBULATORY - MEDICINE [facility] Dec 26, 2023 02:00 PM AMBULATORY - NONE [facility] Jan 05, 2024 08:15 AM AMBULATORY - NONE [facility] Active, Pending, and Scheduled Orders This section includes a listing of several types of active, pending, and scheduled orders, including clinic medications orders, diagnostic test orders, procedure orders and consult orders; where the start date of the order is 45 days before the date of the Encounter or 45 days after the date of theEncounter. The data comes from all [facility]. Test Date/Time Test Type Test Details Facility Name Sep 18, 2023 12:00 AM Laboratory - Chemi stry Order LIVER PROFILE LT GREEN(LI HEP) PLASMA SP JOAQUIN [facility] Social History: Smoking Status (Most current) and Tobacco Use (All prior to encounter date) This section includes the most current, and the historical, smoking and tobacco- related health factors from the [place] facility where the Encounter took place. Current Smoking Status This section includes the most current smoking, or tobacco-related health factor, from the [place] facility where the Encounter took place. Date/Time Current Smoking Status Comment [facility] Mar 30, 2023 01:30 PM [place]-TOBACCO FORMER USER [facility] Tobacco Use History This section includes a history of the smoking, or tobacco-related health factors, that were collected on or before the date of the Encounter. The data comes from the [place] facility where the Encounter took place. Date/Time Smoking Status/Tobacco Use Comment F acility Mar 30, 2023 01:30 PM [place]-TOBACCO QUIT 5 TO < [address] [facility] Encounter Notes: All associated encounter notes This section contains the clinical notes associated to the Encounter. Date/Time Encounter Note(s) Provider Source Oct 11, 2023 09:59 AM PRIMARY CARE TELEP [place] ENCOUNTER NOTE: LOCAL TITLE: Telephone Note-Primary Care STANDARD TITLE: PRIMARY CARE TELEPHONE ENCOUNTER NOTE DATE OF NOTE: OCT 11, 2023@09:59 ENTRY DATE: OCT 11, 2023@09:59:48 AUTHOR: LAYTON GARCIA EXP COSIGNER: URGENCY: STATUS: COMPLETED Work Phone: Cell phone: Called re urgent care note re Infected bursitis, left knee Urgent care Monday10/02/23, [facility] ED 2-3 days later , treated with antibiotics ? clindamycin 450 mg TID x 10 days and steroid - will request records Knee is getting better, not red/pink not warm to touch , no swelling now. Feels better. Feels like some fluid on knee cap. Denies f/c/n/v Advised to call if symptoms worsen, will need urgent appointment or return to ED [x] Counseling of patient/family dominates over 50% of this 5 minute telephone encounter /karla/ LAYTON GARCIA APRN Signed: 10/11/2023 10:[address] [facility]
--- OUTSIDE RECORDS SUMMARY | 2024-04-17 20:56 | XMS_ITS | Encounter Summary ---
Author Name [facility] [place] [facility] [place] Organization [facility] [place] Address [address] [place] [address] Care Team Providers Care Banquet Kitchen Supervisor Name Role Phone CONRAD MCCALLUM Primary Care [...] F.W. ROBLEDO [place] Dec 18, 2020 [id number] [place] PATIENT [facility] F.W. ROBLEDO [place] ID Dec 18, 2020 [id number] TAZ ARNOLD PATIENT MAXORPLUS PRESCRIPT ION RX Dec 18, 2020 [id number] TAZ ARNOLD PATIENT Selected Encounter This section includes the information on record at [place] for the Encounter. Date/Time Encounter Type Encounter Description Reason Pro vider Source August 07, 2023 09:30 AM Outpatient Encounter PCMNV INDIV IHE Encounter Template Text not used by VA Plan of Treatment: Future Appointments (+ 6 months) and Future Tests (+/- 45 days) The Plan of Treatment section includes future care activities for the patient from [facility] This section includes future appointments and future orders which are active, pending or scheduled. Future Appointments This section includes appointments that were scheduled to occur 6 months from the date of the Encounter, up to a maximum of 20 appointments. The data comes from all [place] treatment facilities. Appointment Date/Time Appointment Type Appointme nt Facility Name August 18, 2023 09:00 AM AMBULATORY - PSYCHIATRY [facility] Sep 04, 2023 01:00 PM AMBULATORY - PSYCHIATRY D[facility] Sep 27, 2023 10:00 AM AMBULATORY - MEDICINE AMANDA [facility] Sep 27, 2023 02:00 PM AMBULATORY - PSYCHIATRY DALI [facility] Oct 11, 2023 09:30 AM AMBULATORY - MEDICINE [facility] Dec 06, 2023 02:00 PM AMBULATORY - MEDICINE AMANDA [facility] Dec 26, 2023 02:00 PM AMBULATORY - NONE [facility] Jan 05, 2024 08:15 AM AMBULATORY - NONE [facility] Active, Pending, and Scheduled Orders This section includes a listing of several types of active, pending, and scheduled orders, including clinic medications orders, diagnostic test orders, procedure orders and consult orders; where the start date of the order is 45 days before the date of the Encounter or 45 days after the date of theEncounter. The data comes from all [place] treatment [facility]. Test Date/Time Test Type Test Details Facility Name Sep 18, 2023 12:00 AM Laboratory - Chemi stry Order LIVER PROFILE LT GREEN(LI HEP) PLASMA SP [facility] Lab Results: +/- 30 days of the encounter This section includes the Chemistry and Hematology Lab Results on record with MD for the patient. Radiology Reports and Pathology Reports are provided separately, in subsequent sections. Lab Results This section contains the Chemistry/Hematology Results that were resulted 30 days before or 30 daysafter the date of the Encounter. Date/Time Source Result Type Result - Unit Interpretation Reference Range Comment Jul 11, 2023 10:00 AM [facility] HEP B CORE,TOTAL(W) Specimen Type: SERUM [...] Jun 26, 2023 11:56 AM Reporting Lab: [facility] [address] [address] Performing Lab: [facility] [address] [address] HEP B CORE,TOTAL(W ) Non Reactive Non Reactive Jul 11, 2023 10:00 AM [facility] HBSAG PANEL WITH REFLEX CONFIRMATION(WH) Specimen Typ e: SERUM Comment: A Reactive result (Positive prior to 12/31/12) is diagnostic of acute or chronic hepatitis B infection. The presence of Hepatitis B surface antigen is frequently associated with infectivity. Ordering Provider: LAYTON GARCIA Report Released Date/Time: Jun 26, 2023 11:56 AM Reporting Lab: [facility] [address] [address] Performing Lab: [facility] [address] [address] HEP B SURFACE AG(wh) Non Reactive Non Reactive Jul 11, 2023 10:00 AM [facility] HEP B SURF AB(W) Specimen Type: [...] Jun 26, 2023 11:56 AM Reporting Lab: [facility] [address] [address] Performing Lab: [facility] [address] [facility] [address] HEP B SURF AB(W) REACTIVE Non Reactive Jul 11, 2023 10:00 AM [facility] HEPATITIS C AB(WRJ)w/Reflex Specimen Type: SERUM Comment: , Tests performed on [employer] Information Support Project Manager Alfaro SN:[id number] (405) No HCV antibody detected. If recent infection is suspected or other evidence suggests HCV infection, consider HCV RNA testing Ordering Provider: LAYTON GARCIA Report Released Date/Time: Jun 26, 2023 11:56 AM Reporting Lab: [facility] [address] [address] Performing Lab: [place] [facility] [address] [address] HEPATITIS C AB(WRJ)w/Ref ria Non-Reactive Non-Reactive Jul 11, 2023 10:00 AM [facility] IRON+TIBC(P) Specimen Type: PLASMA Comment: , Tests performed on [employer] Howard SN:[id number] (405). Ordering Provider: LAYTON GARCIA Report Released Date/Time: Jun 26, 2023 11:56 AM Reporting Lab: [facility] [place] [place] [address] [address] Performing Lab: [facility] [address] [address] IRON 90 ug/dL 40-160 TIBC 318 ug/dL [...] EXP COSIGNER: URGENCY: STATUS: COMPLETED Spoke to over phone. He apologized for missing appt last week on 08/03. We rescheduled psychotherapy appt for 08/17 at 9am. No safety concerns noted based on brief t/c. /karla/ CHILO VIVAS Roll Examiner Signed: 08/07/2023 09:31 KWAN SALOMON [facility]
--- OUTSIDE RECORDS SUMMARY | 2024-04-17 20:56 | XMS_ITS ---
Author Name [facility] [place] [facility] [place] Address [address] [place] [address] Care Team Providers Care Treatment Specialist Name Role Phone CONRAD MCCALLUM Primary Care [...] MEDICAL EXPENSE (OPT/PROF ) F.W. ROBLEDO [place] Dec 18, 2020 [id number] TAZ ARNOLD PATIENT [facility] F.W. ROBLED[place] Dec 18, 2020 [id number] TAZ ARNOLD PATIENT MAXORPLUS PRESCRIPT ION RX Dec 18, 2020 [id number] [phone] TAZ ARNOLD PATIENT Selected Encounter This section includes the information on record at [place] for the Encounter. Date/Time Encounter Type Encounter Description Reason Pro vider Source July 24, 2023 10:31 AM Outpatient Encounter ADMIN PAT ACTIVTIES (MASNONCT) IHE Encounter Template Text not used by VA Plan of Treatment: Future Appointments (+ 6 months) and Future Tests (+/- 45 days) The Plan of Treatment section includes future care activities for the patient from all [place] treatmentfacilities. This section includes future appointments and future orders which are active, pending or scheduled. Future Appointments This section includes appointments that were scheduled to occur 6 months from the date of the Encounter, up to a maximum of 20 appointments. The data comes from all [place] treatment facilities. Appointment Date/Time Appointment Type Appointme nt Facility Name August 02, 2023 01:00 PM AMBULATORY - NONE [place] [facility] August 04, 2023 09:00 AM [place] [facility] August 18, 2023 09:00 AM [place] [facility] Sep 04, 2023 01:00 PM AM[place]ULATORY [place] [facility] Sep 27, 2023 10:00 AM AMBULATORY - MEDICINE [place] [facility] Sep 27, 2023 02:00 PM AM[place]ULATORY [place] [facility] Oct 11, 2023 09:30 AM AMBULATORY - MEDICINE [place] [facility] Dec 06, 2023 02:00 PM AMBULATORY - [place]IC[place] [facility] Dec 26, 2023 02:00 PM AMBULATORY - NONE [facility] Jan 05, 2024 08:15 AM AMBULATORY - NONE [place] [facility] Lab Results: +/- 30 days of the [...] Range Comment Jul 11, 2023 10:00 AM [facility] CORE,TOTAL(W) Specimen Type: SERUM [...] Reporting Lab: [facility] [address] [address] Performing Lab: [facility] [address] [facility] [address] HEP B CORE,TOTAL(W ) Non Reactive Non Reactive Jul 11, 2023 10:00 AM [facility] HBSAG PANEL WITH REFLEX CONFIRMATION(WH) Specimen Typ e: SERUM Comment: A Reactive result (Positive prior to 12/31/12) is diagnostic of acute or chronic hepatitis B infection. The presence of Hepatitis B surface antigen is frequently associated with infectivity. Ordering Provider: LAYTON GARCIA Report Released Date/Time: Jun 26, 2023 11:56 AM Reporting Lab: [facility] [address] [address] Performing Lab: [facility] [address] [facility] [address] HEP B SURFACE AG(wh) Non Reactive Non Reactive Jul 11, 2023 10:00 AM [facility] HEP B SURF AB(W) Specimen Type: [...] Reporting Lab: [facility] [address] [address] Performing Lab: [facility] [address] [facility] [address] HEP B SURF AB(W) REACTIVE Non Reactive Jul 11, 2023 10:00 AM [facility] HEPATITIS C AB(WRJ)w/Reflex Specimen Type: SERUM Comment: , Tests performed on Curtis [employer] Alfaro SN:[id number] (405) No HCV antibody detected. If recent infection is suspected or other evidence suggests HCV infection, consider HCV RNA testing Ordering Provider: LAYTON GARCIA Report Released Date/Time: Jun 26, 2023 11:56 AM Reporting Lab: [facility] [address] [address] Performing Lab: [facility] [address] [facility] [address] HEPATITIS C AB(WRJ)w/Ref ria Non-Reactive Non-Reactive Jul 11, 2023 10:00 AM [facility] IRON+TIBC(P) Specimen Type: PLASMA Comment: , Tests performed on [employer] SN:[id number] (405). Ordering Provider: LAYTON GARCIA Report Released Date/Time: Jun 26, 2023 11:56 AM Reporting Lab: [facility] [address] [facility] [address] Performing Lab: [facility] [address] [facility] [facility] [address] IRON 90 ug/dL 40-160 TIBC 318 ug/dL [...] Patient Name: TAZ ARNOLD Patient Primary Phone: [phone] Patient Primary [address]: [address] [place] [id number] Patient : 1990 Patient Age: 32 Call Back Number: [phone] Caller/Recipient Relation to Patient: Self Administrative Administrative Note Reason: Other Administrative Note Comments: PT CALLING TO DISCUSS LAB RESULTS AND IF HE IS STILL HAVING THE ULTRASOUND DONE 07/25 /karla/ MODE HOLLIDAY Signed: 07/24/2023 10:32 Receipt Acknowledged By: 07/26/2023 11:33 /es/ RISHI PANDA LANOLIN PLANT OPERATOR 07/25/2023 13:47 /es/ ZAIRE LYNCH Registered Nurse 07/25/2023 ADDENDUM STATUS: COMPLETED Pt. is contacted. Advised him that it is up to him if he wants to have the [place]. /karla/ ZAIRE LYNCH Registered Nurse Signed: 07/25/2023 13:49 MODE HOLLIDAY [facility]
--- OUTSIDE RECORDS SUMMARY | 2024-04-17 20:56 | XMS_ITS | Encounter Summary ---
Author Name [facility] [place] [facility] [place] Organization [facility] [place] Address [address] [place] [address] Care Team Providers Care Lead Pressman Name Role Phone CONRAD MCCALLUM Primary Care [...] F.W. ROBLEDO [place]ENA [place] Dec 18, 2020 [id number] TAZ ARNOLD PATIENT [facility] [place].W. [place] Dec 18, 2020 [id number] TAZ ARNOLD PATIENT MAXORPLUS PRESCRIPT ION RX Dec 18, 2020 [id number] TAZ ARNOLD PATIENT Selected Encounter This section includes the information on record at [place] for the Encounter. Date/Time Encounter Type Encounter [...] 20 appointments. The data comes from all [facility]. Appointment Date/Time Appointment Type Appointme nt Facility Name Oct 11, 2023 09:30 AM AMBULATORY - MEDICINE AMANDA [facility] Dec 06, 2023 02:00 PM AMBULATORY - MEDICINE AMANDA [facility] Dec 26, 2023 02:00 PM AMBULATORY - NONE [facility] Jan 05, 2024 08:15 AM AMBULATORY - NONE [facility]IN [facility] Active, Pending, and Scheduled Orders This section includes a listing of several types of active, pending, and scheduled orders, including clinic medications orders, diagnostic test orders, procedure orders and consult orders; where the start date of the order is 45 days before the date of the Encounter or 45 days after the date of theEncounter. The data comes from all [facility]. Test Date/Time Test Type Test Details Facility Name Sep 18, 2023 12:00 AM Laboratory - Chemi stry Order LIVER PROFILE LT GREEN(LI HEP) PLASMA SP [facility] Encounter Notes: All associated encounter notes This [...] Patient Name: TAZ ARNOLD Patient Primary Address: [address] [place] [address] Patient Primary Phone: [phone] Patient : 1990 Patient Age: 32 Call Back Number: [phone] Caller/Recipient Relation to Patient: Self Emergency Contact: NICK ARNOLD Triage Summary Conducted triage/discussed symptoms Utilized the Triage Tool: Yes Chief Complaint: Knee Pain System WHEN: Within 24 Hours Nurse's Recommendation / WHEN: Within 24 Hours System WHERE: Clinic Nurse's Recommendation / WHERE: Clinic/[facility] Patient Disposition Patient/Caregiver agrees to plan of care: Yes Nursing Plan and Disposition Referred Patient for In-Person Appt Transferred patient to Sched & Admin-Apt Other course(s) of action Generated msg to PACT/Provider Provided guidance for worsening symptoms: *Caller/Patient* advised to call facilities [place] Clinical Contact Center or seek immediate medical [...] swollen, red and warm to the touch. Shuttle Veneering Supervisor transferred call to [facility] for possible PCP appointment within 24 hours. If no appointment he will go to [facility] [address] [place] [address]. Will alert PACT. Clinical Contact Center Codes Clinic/Location: [facility] PHONE [facility] RN TXCC Triage Complete Triage Date: 10/02/2023, 12:47 PM Triage Note: Phone Triage 02 Oct 2023 16:44:22 +0000 [facility] Demographics 32 y/o Male Results CC: Knee Pain Software suggested: Within 24 Hours Software suggested follow-up location: Clinic, consider [facility] Values and Measures Duration of CC: 1 [...] sickle cell anemia Denies: PSH: organ transplant /es/ TRINIDAD MARAVILLA Signed: 10/02/2023 13:00 Receipt Acknowledged By: 10/04/2023 10:00 /es/ RISHI PANDA LPN 10/02/2023 13:41 /karla/ ZAIRE LYNCH Registered Nurse 10/03/2023 ADDENDUM STATUS: COMPLETED Pt. was seen at [facility] MD. He was administered an antibiotic injection and prescription for antbiotic x 10 days. Requested that he contact clinic with questions or concerns. Reports that some of the swelling/redness has decreased. /es/ ZAIRE LYNCH Registered Nurse Signed: 10/03/2023 10:41 TRINIDAD MARAVILLA [facility]
--- OUTSIDE RECORDS SUMMARY | 2024-04-17 20:56 | XMS_ITS | Continuity of Care Document ---
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 Released Date/Time: Jun 07, 2023 01:13 PM Reporting Lab: [place] [facility] [address] [facility] [address] Performing Lab: [place] [facility] [address] [facility] [address] [facility] LIVER PROFILE BILIRUBIN. TOTAL [MASS/VOLU ME] IN SERUM OR PLASMA 0.5 mg/dL 0.2 - 1.2 06/15 Specimen Type: PLASMA Comment: , Tests performed on [employer] SN:[id number] (405). Ordering Provider: LINDSEY GARCIA Report Released Date/Time: Jun 07, 2023 01:13 PM Reporting Lab: [place] [facility] [address] [facility] [address] Performing Lab: [place] [facility] [address] [facility] [place] [place] [address] [facility] LIVER PROFILE ALKALINE PHOSPHATAS E [ENZYMATIC ACTIVITY/V OLUME] IN SERUM OR PLASMA 88 U/L 40 - 150 06/15 Specimen Type: PLASMA Comment: , Tests performed on [employer] SN:[id number] (405). Ordering Provider: LINDSEY GARCIA Report Released Date/Time: Jun 07, 2023 01:13 PM Reporting Lab: [place] [facility] [address] [facility] [place] [address] Performing Lab: [place] [facility] [address] [facility] [place] [place] [address] [facility] LIVER PROFILE ALANINE AMINOTRANS FERASE [ENZYMATIC ACTIVITY/V OLUME] IN SERUM OR PLASMA 82 U/L 7 - 52 06/15 H Specimen Type: PLASMA Comment: , Tests performed on [employer] SN:[id number] (405). Ordering Provider: LINDSEY GARCIA Report Released Date/Time: Jun 07, 2023 01:13 PM Reporting Lab: [place] [place] [facility] [address] [facility] [address] Performing Lab: [place] [facility] [address] [facility] [address] [facility] LIVER PROFILE ASPARTATE AMINOTRANS FERASE [ENZYMATIC ACTIVITY/V OLUME] IN SERUM OR PLASMA 36 U/L 5 - 34 06/15 H Specimen Type: PLASMA Comment: , Tests performed on [employer] SN:[id number] (405). Ordering Provider: LINDSEY GARCIA Report Released Date/Time: Jun 07, 2023 01:13 PM Reporting Lab: [place] [facility] [address] [facility] [address] Performing Lab: [place] [facility] [address] [facility] [address] [facility] LIVER PROFILE FIB-4 SCORE 0.59 <2.67 - 2.67 06/15 Specimen Type: PLASMA Comment: , Tests performed on Curtis [employer] Howard SN:[id number] (405). Ordering Provider: LINDSEY GARCIA Report Released Date/Time: Jun 07, 2023 01:13 PM Reporting Lab: [place] [facility] [address] [facility] [address] Performing Lab: [place] [facility] [address] [facility] [address] [facility] LIPOPROT EIN CHOLESTE ROL FRACT. PANEL CHOLESTERO L [MASS/VOLU ME] IN SERUM OR PLASMA 200 mg/dL 0 - 200 06/15 Specimen Type: PLASMA Comment: , Tests performed on [employer] SN:[id number] (405). Ordering Provider: LINDSEY GARCIA Report Released Date/Time: Jun 07, 2023 01:13 PM Reporting Lab: [place] [facility] [address] [facility] [address] Performing Lab: [facility] [address] [facility] [address] [facility] LIPOPROT EIN CHOLESTE ROL FRACT. PANEL TRIGLYCERI DE [MASS/VOLU ME] IN SERUM OR PLASMA 255 mg/dL 0 - 150 06/15 H Specimen Type: PLASMA Comment: , Tests performed on [employer] SN:[id number] (405). Ordering Provider: LINDSEY GARCIA Report Released Date/Time: Jun 07, 2023 01:13 PM Reporting Lab: [facility] [address] [facility] [address] Performing Lab: [facility] [address] [facility] [address] [facility] LIPOPROT EIN CHOLESTE ROL FRACT. PANEL CHOLESTERO L IN HDL [MASS/VOLU ME] IN SERUM OR PLASMA 45 mg/dL 40 06/15 Specimen Type: PLASMA Comment: , Tests performed on [employer] SN:[id number] (405). Ordering Provider: LINDSEY GARCIA Report Released Date/Time: Jun 07, 2023 01:13 PM Reporting Lab: [facility] [address] [facility] [address] Performing Lab: [facility] [address] [facility] [address] [facility] LIPOPROT EIN CHOLESTE ROL FRACT. PANEL CHOLESTERO L IN LDL [MASS/VOLU ME] IN SERUM OR PLASMA BY CALCULATIO N 104 mg/dL 0 - 129 06/15 Specimen Type: PLASMA Comment: , Tests performed on [employer] SN:[id number] (405). Ordering Provider: LINDSEY GARCIA Report Released Date/Time: Jun 07, 2023 01:13 PM Reporting Lab: [facility] [address] [facility] [address] Performing Lab: [facility] [address] [facility] [address] [facility] Vital Signs Combined list of inpatient and outpatient Vital Signs from Department of Defense and Veterans Affairs, ranging from 12 months to all on record, depending upon the facility. Vital Sign Value Date Comments Source SYSTOLIC BLOOD PRESSURE 126 06/16/2023 09:26:[facility] DIASTOLIC BLOOD PRESSURE 83 06/16/2023 09:26:[facility] PULSE OXIMETRY 96 06/16/2023 09:26:07 [facility] WEIGHT 220 06/16/2023 09:26:07 [facility] BMI 32kg/m2 06/16/2023 09:26:07 [facility] 70 06/16/2023 09:26:[facility] PULSE 89 06/16/2023 09:26:07 [facility] 16 06/16/2023 09[facility]26:07 [facility] Encounters Combined list of: 1) Encounters from Department of Veterans Affairs facilities going back up to thelast 18 months. 2) Encounters from the Department of Defense facilities going back up to 280 months. Location Location Details Encounter Type Encounter Number Reason For Visit Attending Provider ADM Date DC Date Status Disposition Source [place] [place] [facility] [place] OUTPATIENT [id number] CELIA OLMOS 12/03 Released w/o Limitations [place] [facility] OUTPAT[place] [id number] hearing test MARVIN MONSALVE 12/03 Released w/o Limitations [place] [place] [id number] IMM ALDEN ZULETA 12/05 Released w/o Limitations [place]PAT[place] [id number] cold sx JENNIFER HOLBROOK 12/23 Sick at Home/Quarter [place] [place] [facility] [facility]) OUTPATIENT [id number] MQB F/U ANDREEA MORENO 12/26 Released w/o Limitations [place] [facility]ynor Melendez [facility]) OUTPATIENT [id number] swollen CELIA Hayden 02/11 Released with Work/Duty Limitations Luis Angel [facility], Mynor Sims , [facility]) Luis Angel PURDY, [facility] Summers([facility]) OUTPATIENT [id number] dressin g change ANDREEA MORENO Hina 02/12 Released with Work/Duty Limitations [place] [facility]) Mynor Melendez, [facility]([place]) OUTPATIENT [id number] DRESSIN G CHANGE INGRID LYNCH 02/13 Released w/o Limitations Mynor Melendez , [facility]) Mynor Melendez, [facility]([place] [facility]) OUTPATIENT [id number] dressin g INGRID Esqueda 02/14 Released w/o Limitations [place] [facility]) [place] OUTPATIENT [id number] RISHI Amezquita 02/16 Released w/o Limitations Mynor Melendez , [facility] OUTPATIENT [id number] 07/16 Released w/o Limitations Theater Facilit y Dorita PUR[place] OUTPATIENT [id number] initial appt NESSA , ED Marisol 02/24 Released w/o Limitations Dorita [place] Traumat [place]) [place] [facility] Outpatient Encounter [id number] 11/01 [place] [facility] [place] [facility] Outpatient Encounter [id number] 02/22 [place] [facility] [place] [facility] Outpatient Encounter [id number] 03/01 [place] [facility] [place] [facility] En[place] [id number] 03/07 [place] [facility]P NEW SF 15-29 MIN [id number] Diagnos is: ICD-10- CM E66.3 Overwei ght<br/ > RADHA,CHUNG GILBERTO L 03/08 [facility] PSYTX W PT 30 MINUTES [id number] Diagnos is: ICD-10- CM F43.20 Adjustm ent disorde r, unspeci fied
RACHEL FRANCOY AMARILIS 03/21 [facility] OFFICE O/P NEW MOD 45 MIN [id number] Diagnos is: ICD-10- CM F41.9 Anxiety disorde r, unspeci fied
RADHA,CHUNG GILBERTO L 03/30 [facility] OFFICE O/P EST LOW 20 MIN [id number] Diagnos is: ICD-10- CM F41.9 Anxiety disorde r, unspeci fied
RADHA,CHUNG GILBERTO L 06/15 [facility] Outpatient Encounter [id number] 07/09 [facility] Outpatient Encounter [id number] Diagnos is: ICD-10- CM F41.9 Anxiety disorde r, unspeci fied
RADHA,CHUNG GILBERTO L 07/11 [facility] Outpatient Encounter [id number] 07/23 [facility] Outpatient Encounter [id number] 07/25 [facility] [place] [id number] Diagnos is: ICD-10- CM E66.3 Overwei ght<br/ > NIYAH ROCKWELL 08[facility]01 [facility] Encounter [id number] 08/03 [facility] Outpatient Encounter [id number] 08/06 [facility] PSYCH DIAGNOSTIC EVALUATION [id number] Diagnos is: ICD-10- CM F41.9 Anxiety disorde r, unspeci fied
ROSI SALOMON 08/17 [facility] PSYTX W PT 45 MINUTES [id number] Diagnos is: ICD-10- CM F41.9 Anxiety disorde r, unspeci fied
ROSI SALOMON 09/03 [facility] Outpatient Encounter [id number] Diagnos is: ICD-10- CM F41.9 Anxiety disorde r, unspeci fied
CHNUG GARCIA Itzel 09/26 [facility] PSYTX W PT 45 MINUTES [id number] [id number] Diagnos is: ICD-10- CM F41.9 Anxiety disorde r, unspeci fied
ROSI SALOMON 09/26 [facility] Outpatient Encounter [id number] ROSI SALOMON 09/26 [place] [facility] [place] [facility] Outpatient Encounter [id number] 10/01 [place] [facility] [place] [facility] Outpatient Encounter [id number] 10/01 [place] [facility] Outpatient Encounter [id number] 10/09 [place] [facility] Outpatient Encounter [id number] [id number] Diagnos is: ICD-10- CM M71.162 Other infecti ve bursiti s, left knee
RADHA,CHUNG GILBERTO L 10/10 [facility] [place] [facility] Outpatient Encounter [id number] 10/10 [place] [facility] [place] [facility] Outpatient Encounter [id number] 10/12 [place] [facility] [place] [facility] Outpatient Encounter [id number] 10/17 [place] [facility] [place] [facility] Outpatient Encounter [id number] 10/19 [place] [facility] [place] [facility] Outpatient Encounter [id number] 10/24 [place] [facility] [place] [facility] Outpatient Encounter [id number] 10/24 [place] [facility] Outpatient Encounter [id number] Diagnos is: ICD-10- CM R94.5 Abnorma l results of liver functio n studies
CHUNG GARCIA GILBERTO L 12/05 [facility] Procedures Combined list of: 1) Procedures from Department of Veterans Affairs facilities going back up to thelast 18 months, not all VA non-surgical procedures are included; 2) All procedures from the Department of Defense facilities. Procedure Procedure Type Code Date Perfomer Comments Sourc e PURE TONE AUDIOMETRY (THRESHOLD); AIR ONLY 02/25/2010 [facility] CASE MANAGEMENT, EACH 15 MINUTES 02/24/2010 [facility] ANTHRAX VACCINE, FOR SUBCUTANEOUS OR INTRAMUSCULAR USE 04/29/2009 [facility] SKIN TEST; TUBERCULOSIS, INTRADERMAL 04/29/2009 [facility] SKIN TEST; TUBERCULOSIS, INTRADERMAL 12/05/2008 [facility] AUDIOMETRIC TESTING OF GROUPS 12/03/2008 [facility] OPHTHALMOLOGICAL SERVICES: MEDICAL EXAMINATION AND EVALUATION WITH INITIATION OF DIAGNOSTIC AND TREATMENT PROGRAM; COMPREHENSIVE, NEW PATIENT, 1 OR MORE VISITS 12/03/2008 [facility] Social History Combined list of available smoking, tobacco, and other social history from Department of Defense and Veterans Affairs facilities. Social History Type Response Date Comment Sourc e Tobacco smoking status NHIS VA-TOBACCO FORMER [facility]ER [facility] History of tobacco use VA-TOBACCO QUIT 5 TO < 15 YRS 03/30/[facility]23 [facility] This section is an empty social history section. [facility] Plan of Care List of future care activities from Department of Veterans Affairs facilities. Additional future care activities may be listed in the Assessment and Plan section. Date/Time Care Activity Care Activity Detail Facili ty 05/20/2024 AMBULATORY - MEDICINE AMBULATORY - MEDICI [facility]
--- OUTSIDE RECORDS SUMMARY | 2024-04-17 20:56 | XMS_ITS | Encounter Summary ---
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 ROBLEDO MALENA PA Dec 18, 2020 [id number] [facility] TAZ ARNOLD PATIENT [facility] F.W. ROBLEDO MALENA PA Dec 18, 2020 [id number] TAZ ARNOLD PATIENT MAXORPLUS PRESCRIPT ION RX Dec 18, 2020 [id number] LESLY ARNOLDD PATIENT Selected Encounter This section includes the information on record at [place] for the Encounter. Date/Time Encounter Type Encounter Description Reason Provider Source Jul 12, 2023 10:00 AM Outpatient Encounter TELEPHONE PRIMARY CARE ICD-10-CM F41.9 Anxiety disorder, unspecified LAYTON GARCIA Encounter Template Text not used by [facility] Assessments - Encounter Diagnoses This section includes the primary and secondary diagnoses documented for the Encounter. Date/Time Primary/Secondary Diagnosis Diagnosis Name Provider Source Jul 12, 2023 10:00 AM PRIMARY Anxiety disorder, unspecified ROBERTO GARCIAN Itzel [facility] Plan of Treatment: Future Appointments (+ 6 months) and Future Tests (+/- 45 days) The Plan of Treatment section includes future care activities for the patient from all [place] treatmentfacilities. This section includes future appointments and [...] PM AMBULATORY - NONE [place] [facility] August 04, 2023 09:00 AM [facility] [place] [facility] August 18, 2023 09:00 AM AMBULATORY - [place]RY [place] [facility] Sep 04, 2023 01:00 PM AMBULATORY - [place]RY [place] [facility] Sep 27, 2023 10:00 AM AMBULATORY - MEDICINE [place] [facility] Sep 27, 2023 02:00 PM AMBULATORY - [place]IATRY [place] [facility] Oct 11, 2023 09:30 AM AMBULATORY - MEDICINE [place] [facility] Dec 06, 2023 02:00 PM AMBULATORY - MEDICINE [place] [facility] Dec 26, 2023 02:00 PM AMBULATORY - NONE [facility] Jan 05, 2024 08:15 AM AMBULATORY - NONE [place] [facility] [facility] Lab Results: +/- 30 days of the encounter This section includes the Chemistry and Hematology Lab Results on record with [place] for the patient. Radiology Reports and Pathology Reports are provided separately, in subsequent sections. Lab Results This section contains the Chemistry/Hematology Results that were resulted 30 days before or 30 daysafter the date of the Encounter. Date/Time Source Result Type Result - Unit Interpretation Reference Range Comment Jul 11, 2023 10:[address] [facility] HEP B CORE,TOTAL(W) Specimen Type: SERUM Comment: A 'Reactive' result indicates HBsAb results >/= 12.0 mIU/mL and immunity to HBV infection. This test detects both IgG and IgM antibodies. A Reactive result (Positive prior to 10/14/13) may indicate either current or previous hepatitis B infection. Antibodies to Hepatitis B Core may be the only marker of recent hepatitis B infection during the window period when Hepatitis B surface antigen has disappeared and Hepatitis B surface antibodies are not yet detectable. Ordering Provider: LAYTON GARCIA Report Released Date/Time: Jun 26, 2023 11:56 AM Reporting Lab: [facility] [address] [facility] [address] Performing Lab: [facility] [address] [facility] [address] HEP B CORE,TOTAL(W) Non Reactive Non Reactive Jul 11, 2023 10:[address] [facility] HBSAG PANEL WITH REFLEX CONFIRMATION(WH) Specimen Type: SERUM Comment: A Reactive result (Positive prior to 12/31/12) is diagnostic of acute or chronic hepatitis B infection. The presence of Hepatitis B surface antigen is frequently associated with infectivity. Ordering Provider: LAYTON GARCIA Report Released Date/Time: Jun 26, 2023 11:56 AM Reporting Lab: [facility] [address] [facility] [address] Performing Lab: [facility] [address] [facility] [address] HEP B SURFACE AG(wh) Non Reactive Non Reactive Jul 11, 2023 10:[address] [facility] HEP B SURF AB(W) Specimen Type: [...] Jun 26, 2023 11:56 AM Reporting Lab: [facility] [address] [facility] [facility] [address] Performing Lab: [facility] [address] [facility] [address] HEP B SURF AB(W) REACTIVE Non Reactive Jul 11, 2023 10:[address] [facility] HEPATITIS C AB(WRJ)w/Reflex Specimen Type: SERUM Comment: , Tests performed on Curtis Senior Qa Automation Engineer Alfaro [id number] (405) No HCV antibody detected. If recent infection is suspected or other evidence suggests HCV infection, consider HCV RNA testing Ordering Provider: LAYTON GARCIA Report Released Date/Time: Jun 26, 2023 11:56 AM Reporting Lab: [facility] [address] [facility] [facility] [address] [facility]: [facility] [address] [address] HEPATITIS C AB(WRJ)w/Reflex Non-Reactive Non-Reacti ve Jul 11, 2023 10:[address] [facility] IRON+TIBC(P) Specimen Type: PLASMA Comment: , Tests performed on Curtis FiPath Howard SN:[id number] (405). Ordering Provider: LAYTON GARCIA Report Released Date/Time: Jun 26, 2023 11:56 AM Reporting Lab: [facility] [address] [facility] [facility] [address] Performing Lab: [facility] [address] [facility] [address] IRON 90 ug/dL 40-160 TIBC 318 ug/dL IRON SATURATION(P) 28 >15 UIBC(P) 228 ug/dL 126-382 Jun 16, 2023 10:[address] [facility] CBC PROFILE Specimen Type: BLOOD No comment entered. Ordering Provider: LAYTON GARCIA Report Released Date/Time: Jun 07, 2023 01:13 PM Reporting Lab: [facility] [address] [facility] [address] Performing Lab: [facility] [address] [facility] [facility] [address] WBC 7.1 10*3/uL 4.5-11.0 RBC 5.35 10*6/uL [...] 10*3/uL 0-0 Jun 16, 2023 10:[address] [facility] P4 GLU,BUN,CREAT,LYTES,CA Specimen Type: PLASMA Comment: , Tests performed on [employer] SN:[id number] (324). Ordering Provider: LAYTON GARCIA Report Released Date/Time: Jun 07, 2023 01:13 PM Reporting Lab: [facility] [address] [facility] [facility] [address] Performing Lab: [facility] [address] [address] UREA NITROGEN 13 mg/dL 7-25 SODIUM 139 mmol/L 135-145 POTASSIUM 4.4 mmol/L 3.5-5.0 CHLORIDE 104 mmol/L 100-110 CARBON DIOXIDE 25 mmol/L 20-30 ANION GAP 10 4-16 GLUCOSE 91 mg/dL 65-100 CREATININE 0.83 mg/dL 0.50-1.50 CALCIUM 9.7 mg/dL 8.5-10.5 eGFR(CKD-EPI 2020) >90 mL/min Jun 16, 2023 10:[address] [facility] LIVER PROFILE Specimen Type: PLASMA Comment: , Tests performed on [employer] SN:[id number] (405). Ordering Provider: LAYTON GARCIA Report Released Date/Time: Jun 07, 2023 01:13 PM Reporting Lab: [facility] [address] [address] Performing Lab: [facility] [address] [facility] [address] PROTEIN, TOTAL 7.7 g/dL 6.0-8.5 ALBUMIN 4.3 g/dL 3.2-5.0 BILIRUBIN, TOTAL 0.5 mg/dL 0.2-1.2 ALKALINE PHOSPHATASE 88 U/L 40-150 ALT(SGPT) 82 U/L H 7-52 AST(SGOT) 36 U/L H 5-34 FIB-4 SCORE 0.59 <2.67 Jun 16, 2023 10:[address] [facility] LIPOPROTEIN CHOLESTEROL FRACT. PANEL Specimen Type: PLASMA Comment: , Tests performed on Curtis FiPath Howard SN:[id number] (405). Ordering Provider: LAYTON GARCIA Report Released Date/Time: Jun 07, 2023 01:13 PM Reporting Lab: [facility] [address] [facility] [address] Performing Lab: [facility] [address] [address] CHOLESTEROL 200 mg/dL 0-200 TRIGLYCERIDE 255 mg/dL H 0-150 HDL CHOLESTEROL 45 mg/dL >40 LDL CHOLESTEROL (CALC) 104 mg/dL 0-129 Jun 16, 2023 10:[address] [facility] GLYCOHEMOGLOBIN (A1C ONLY) Specimen Type: BLOOD Comment: , Tests performed on Curtis FiPath Alfaro SN:[id number] (405) Values obtained from A1C measurements can vary. For typical A1C assays, a reported value of 7.0 could actually be between 6.72 and 7.28 if measured by a reference method. A reported value of 9.0 could actually be between 8.73 and 9.27. Ref: http://www.ng sp.org/CAPdat a.asp Ordering Provider: LAYTON GARCIA Report Released Date/Time: Jun 07, 2023 01:13 PM Reporting Lab: [facility] [address] [address] Performing Lab: [facility] [address] [address] HEMOGLOBIN A1C 5.1 4.0-5.6 Jun 16, 2023 10:[address] [facility] THYROID TESTING CASCADE Specimen Type: SERUM Comment: , Tests performed on Curtis Senior Qa Automation Engineer Alfaro SN:[id number] (405) TSH within normal limits. Reflex testing not required. Ordering Provider: LAYTON GARCIA Report Released Date/Time: Jun 07, 2023 01:13 PM Reporting Lab: [facility] [address] [facility] [address] Performing Lab: [facility] [address] [address] TSH 0.77 u[IU]/mL 0.35-5.00 Jun 16, 2023 10:[address] [facility] VIT D 25-OH(WRJ) Specimen Type: SERUM Comment: , Tests performed on Curtis Senior Qa Automation Engineer Alfaro SN:[id number] (405) TSH within normal limits. Reflex testing not required. Ordering Provider: LAYTON GARCIA Report Released Date/Time: Jun 07, 2023 01:13 PM Reporting Lab: [facility] [address] [facility] [address] Performing Lab: [facility] [address] [address] VIT D 25-OH([facility]) 14.0 ng/mL L 20.0-50.0 Social History: Smoking Status (Most current) and Tobacco Use (All prior to encounter date) This section includes the most current, and the historical, smoking and tobacco- related health factors from the [place] facility where the Encounter took place. Current Smoking Status This section includes the most current smoking, or tobacco-related health factor, from the [place] facility where the Encounter took place. Date/Time Current Smoking Status Comment Chase cheny Mar 30, 2023 01:30 PM CO-TOBACCO FORMER USER [facility] Tobacco Use History This section includes a history of the smoking, or tobacco-related health factors, that were collected on or before the date of the Encounter. The data comes from the [place] facility where the Encounter took place. Date/Time Smoking Status/Tobacco Use Comment F acconnie Mar 30, 2023 01:30 PM CO-TOBACCO QUIT 5 TO < [address] [facility] Encounter Notes: All associated encounter notes This section contains the clinical notes associated to the Encounter. Date/Time Encounter Note(s) Provider Source Dec 28, 2023 04:07 PM ADDENDUM: LOCAL TITLE: Addendum STANDARD TITLE: ADDENDUM DATE OF NOTE: DEC 28, 2023@16:07:41 ENTRY DATE: DEC 28, 2023@16:07:41 AUTHOR: CINDY RICO COSIGNER: URGENCY: STATUS: COMPLETED PATIENT RETURNING CALL TO RN. PATIENT PHONE: DEMOGRAPHICS CONFIRMED /es/ CINDY RICO VISN 1 [facility] AMSA Signed: 12/28/2023 16:15 Receipt Acknowledged By: 12/29/2023 09:51 /es/ CHINA MUIR RN for INGRID Sree LIANE 12/29/2023 08:16 /es/ ZAIRE LYNCH Registered Nurse 01/03/2024 09:37 /es/ RISHI PANDA SKILLED LABORER --- Original Document --- 12/28/23 Administrative Note/Primary Care: Nursing: Please inform that recent labs do show improvement of his liver functions. His AST has returned within the normal reference range but his ALT still remains elevated. If consumes alcohol would encourage cessation, also would limit daily use of tylenol. Per PCP's last not she stated that if there was still some elevation would get an ultrasound so I have ordered this for in her absence from clinic. /es/ ISAURO ALCALA Signed: 12/28/2023 08:53 Receipt Acknowledged By: * AWAITING SIGNATURE * ZAIRE LYNCH 12/28/2023 ADDENDUM STATUS: COMPLETED call out to patient /es/ INGRID ROB Signed: 12/28/2023 15:52 CINDY RICO [facility] Dec 28, 2023 08:49 AM PRIMARY CARE ADMINISTRATIVE NOTE: LOCAL TITLE: Administrative Note/Primary Care STANDARD TITLE: PRIMARY CARE ADMINISTRATIVE NOTE DATE OF NOTE: DEC 28, 2023@08:49 ENTRY DATE: DEC 28, 2023@08:49:59 AUTHOR: ISAURO HANDY COSIGNER: URGENCY: STATUS: COMPLETED Administrative Note/Primary Care Has ADDENDA Nursing: Please inform that recent labs do show improvement of his liver functions. His AST has returned within the normal reference range but his ALT still remains elevated. If consumes alcohol would encourage cessation, also would limit daily use of tylenol. Per PCP's last not she stated that if there was still some elevation would get an ultrasound so I have ordered this for in her absence from clinic. /es/ ISAURO ALCALA Signed: 12/28/2023 08:53 Receipt Acknowledged By: 01/04/2024 11:21 /es/ ZAIRE LYNCH Registered Nurse 12/28/2023 ADDENDUM STATUS: COMPLETED call out to patient /es/ INGRID ROB Signed: 12/28/2023 15:52 12/28/2023 ADDENDUM STATUS: COMPLETED PATIENT RETURNING CALL TO RN. PATIENT PHONE: DEMOGRAPHICS CONFIRMED /es/ CINDY COLLINS 1 [facility] AMSA Signed: 12/28/2023 16:15 Receipt Acknowledged By: 12/29/2023 09:51 /es/ CHINA MUIR RN for INGRID ROB 12/29/2023 08:16 /es/ ZAIRE LYNCH Registered Nurse 01/03/2024 09:37 /es/ RISHI PANDA LPN 01/04/2024 ADDENDUM STATUS: COMPLETED Message is left requesting call back. /karla/ ZAIRE LYNCH Registered Nurse Signed: 01/04/2024 09:32 01/04/2024 ADDENDUM STATUS: COMPLETED Pt. returned call to clinic. Reviewed liver results with pt. Advised him that US has been ordered. He reports that he is scheduled for 01/05/24. /es/ ZAIRE LYNCH Registered Nurse Signed: 01/04/2024 11:23 [facility] 12, 2023 10[facility]04 AM PRIMARY CARE TELEP [place] ENCOUNTER NOTE: LOCAL TITLE: Telephone Note-Primary Care STANDARD TITLE: PRIMARY CARE TELEPHONE ENCOUNTER NOTE DATE OF NOTE: JUL 12, 2023@10:04 ENTRY DATE: JUL 12, 2023@10:04:11 AUTHOR: LAYTON GARCIA COSIGNER: URGENCY: STATUS: COMPLETED Work Phone: Cell phone: ASSESS/PLAN - # anxiety - MH consult - had VVC with Sushant Almaguer psychologist- they are trying to see if there is availability in [place] for ftf- new counselor starting soon, on 06/16/23 rtc placed for MH per rec from Iker Siu. Will stop sertraline 25 mg daily- he has not noticed effect- prefers counseling TEAMs to Dr Cruz to try to get him ftf apt in [place] # diarrhea- improved , working on diet [...] he has room for improvment in diet yeny [employer] english fries has started meal planning wht girlfriend Has been increasing activity by doing yard work ALLERGIES: Patient has answered NKA PMH: Active problems - Computerized Problem List is the source for the followin. Anxiety (SCT [id number]) 2. Exposure to Potentially Hazardous Substance ([facility] [id number]) 3. Overweight MEDS: Active Outpatient Medications (excluding [...] Seatbelt use: y Smoke detectors:y [facility] Dental [facility]: yes FH: Mother: [...] distress. Neurological:Alert, oriented X3 /es/ LAYTON GARCIA NUCLEAR CRITICALITY SAFETY ENGINEER Signed: 07/12/2023 15:[address] [facility]
--- OUTSIDE RECORDS SUMMARY | 2024-04-17 20:56 | XMS_ITS ---
[place] MEDICAL NUTRITION [facility] Encounter Summary Created on: April 17, 2024 LESLY ARNOLDD TATIANA : 1990 Sex: Male Author Name [facility] [place] [facility] [place] Address [address] [place] [address] Care Team Providers Care Issuer Name Role Phone CONRAD MCCALLUM Primary Care [...] F.W. ROBLEDO MALENA NH Dec 18, 2020 [id number] [phone] CLAYTONTAZ PATIENT [employer] [facility] F.W. ROBLEDO MALENA NH Dec 18, 2020 [id number] CLAYTONTAZ PATIENT MAXORPLUS PRESCRIPT ION RX Dec 18, 2020 [id number] TAZ ARNOLD PATIENT Selected Encounter This section includes the information on record at [place] for the Encounter. Date/Time Encounter Type Encounter Description Reason Provider Source August 02, 2023 01:00 PM MEDICAL NUTRITION INDIV IN NUTRITION/DIETETI CS-INDIVIDUAL ICD-10-CM E66.3 Overweight JAIME ROCKWELL E Encounter Template Text not used by [place] Assessments - Encounter Diagnoses This section includes the primary and secondary diagnoses documented for the Encounter. Date/Time Primary/Secondary Diagnosis Diagnosis Name Provider Source August 02, 2023 03:56 PM PRIMARY Overweight JAIME ROCKWELL [facility] August 02, 2023 03:56 PM SECONDARY Dietary counseling and surveillance JAIME ROCKWELL [facility] Plan of Treatment: Future Appointments (+ [...] 09:00 AM AMBULATORY - PSYCHIATRY DALI [facility]ERSON [facility] August 18, 2023 09:00 AM AMBULATORY - PSYCHIATRY DALI [facility] Sep 04, 2023 01:00 PM AMBULATORY - PSYCHIATRY DALI [facility] Sep 27, 2023 10:00 AM AMBULATORY - MEDICINE AMANDA [facility] Sep 27, 2023 02:00 PM AMBULATORY - PSYCHIATRY DALI [facility] Oct 11, 2023 09:30 AM AMBULATORY - MEDICINE [facility] Parrish [facility] Dec 06, 2023 02:00 PM AMBULATORY - MEDICINE AMANDA Senior [place] [facility] Dec 26, 2023 02:00 PM AMBULATORY - NONE [facility] Jan 05, 2024 08:15 AM AMBULATORY - NONE JOAQUIN ROLDAN [facility] Lab Results: +/- 30 days of [...] Range Comment Jul 11, 2023 10:00 AM [facility] HEP B CORE,TOTAL(W) Specimen Type: SERUM Comment: [...] Jun 26, 2023 11:56 AM Reporting Lab: [facility] [address] [facility] [address] Performing Lab: [facility] [address] [address] HEP B CORE,TOTAL(W ) Non Reactive Non Reactive Jul 11, 2023 10:00 AM [facility] HBSAG PANEL WITH REFLEX CONFIRMATION(WH) Specimen Typ e: SERUM Comment: A Reactive result (Positive prior to 12/31/12) is diagnostic of acute or chronic hepatitis B infection. The presence of Hepatitis B surface antigen is frequently associated with infectivity. Ordering Provider: LAYTON GARCIA Report Released Date/Time: Jun 26, 2023 11:56 AM Reporting Lab: [facility] [address] [facility] [address] Performing Lab: [facility] [address] [address] HEP B SURFACE AG(wh) Non Reactive Non Reactive Jul 11, 2023 10:00 AM [facility] HEP B SURF AB(W) Specimen [...] Jun 26, 2023 11:56 AM Reporting Lab: [facility] [address] [facility] [address] Performing Lab: [facility] [address] [facility] [address] HEP B SURF AB(W) REACTIVE Non Reactive Jul 11, 2023 10:00 AM [facility] HEPATITIS C AB(WRJ)w/Reflex Specimen Type: SERUM Comment: , Tests performed on Curtis Toll Test Worker Alfaro SN:[id number] (405) No HCV antibody detected. If recent infection is suspected or other evidence suggests HCV infection, consider HCV RNA testing Ordering Provider: LAYTON GARCIA Report Released Date/Time: Jun 26, 2023 11:56 AM Reporting Lab: [facility] [address] [facility] [address] Performing Lab: [facility] [address] [facility] [address] HEPATITIS C AB(WRJ)w/Ref ria Non-Reactive Non-Reactive Jul 11, 2023 10:00 AM [facility] IRON+TIBC(P) Specimen Type: PLASMA Comment: , Tests performed on Curtis Fobbler Howard SN:[id number] (405). Ordering Provider: LAYTON GARCIA Report Released Date/Time: Jun 26, 2023 11:56 AM Reporting Lab: [facility] [address] [facility] [place] [address] Performing Lab: [place] [facility] [address] [facility] [address] IRON 90 ug/dL 40-160 TIBC 318 ug/dL [...] INFO: 1. If patient does utilize local [facility] services: a) [place] E911 [phone] 2. [place] [place] [facility] Help [facility] - [phone] Reason for consult: Overweight(ICD-10-CM E66.3) Reason For [...] +/-10% Food Recall: B- breakfast sandwich from gas station: engl muffin/egg/sausage occasionally cereal at home: cheerios [...] appears well nourished Estimated Nutrition Needs: Calories: 5874-7050 kcals (20-25 kcal/kg ABW) Protein: 80 g (1g/kg ABW) Nutrition Diagnosis: Obesity class I Related to: caloric intake exceeds needs As evidenced by: BMI 31 Etiology: behavior INTERVENTION: Nutrition Rx Healthy Diet Nutrition Education Healthy Plate Health benefits of whole food diet Nutrition Counseling is interested in healthy diet for health [...] Clinical Dietitian Signed: 08/02/2023 16:03 JAIME ROCKWELL [facility]
--- OUTSIDE RECORDS SUMMARY | 2024-04-17 20:56 | XMS_ITS | Encounter Summary ---
Author Name [facility] [place] Address [address] [place] [address] Care Team Providers Care School Business Administrator Name Role Phone CONRAD MCCALLUM Primary Care [...] MEDICAL EXPENSE (OPT/PROF ) F.W. ROBLEDO [place] Dec 18, 2020 [id number] CLAYTONTAZ PATIENT [facility] F.W. RO[place] Dec 18, 2020 [id number] CLAY[place] PATIENT [employer]ORPLUS PRESCRIPT ION RX Dec 18, 2020 [id number] CLAYTONTAZ PATIENT Selected Encounter This section includes the information on record at [place] for the Encounter. Date/Time Encounter Type Encounter Description Reason Pro vider Source August 04, 2023 09:00 AM Outpatient Encounter PCMND IND IHE Encounter Template Text not used by [facility] Plan of Treatment: Future Appointments (+ 6 months) and Future Tests (+/- 45 days) The Plan of Treatment section includes future care activities for the patient from all [place] [facility] This section includes future appointments and future orders which are active, pending or scheduled. Future Appointments This section includes appointments that were scheduled to occur 6 months from the date of the Encounter, up to a maximum of 20 appointments. The data comes from all [place] treatment facilities. Appointment Date/Time Appointment Type Appointme nt Facility Name August 18, 2023 09:00 AM AMBULATORY - PSYCHIATRY DALI MCPHERSON [facility] Sep 04, 2023 01:00 PM AMBULATORY - PSYCHIATRY [place] [facility] Sep 27, 2023 10:00 AM AMBULATORY - MEDICINE AMANDA MCPHERSON [facility] Sep 27, 2023 02:00 PM AMBULATORY - PSYCHIATRY DALI MCPHERSON [facility] Oct 11, 2023 09:30 AM AMBULATORY - MEDICINE WHIT E [place] [facility] Dec 06, 2023 02:00 PM AMBULATORY - MEDICINE AMANDA MCPHERSON [facility] Dec 26, 2023 02:00 PM AMBULATORY - NONE [facility] Jan 05, 2024 08:15 AM AMBULATORY - NONE JOAQUIN HAWKINS [facility] Active, Pending, and Scheduled Orders This section includes a listing of several types of active, pending, and scheduled orders, including clinic medications orders, diagnostic test orders, procedure orders and consult orders; where the start date of the order is 45 days before the date of the Encounter or 45 days after the date of theEncounter. The data comes from all [facility]. Test Date/Time Test Type Test Details Facility Name Sep 18, 2023 12:00 AM Laboratory - Chemi stry Order LIVER PROFILE LT GREEN(LI HEP) PLASMA SP JOAQUNI MCPHERSON [facility] Lab Results: +/- 30 days of the encounter This section includes the Chemistry and Hematology Lab Results on record with [place] for the patient. Radiology Reports and Pathology Reports are provided separately, in subsequent sections. Lab Results This section contains the Chemistry/Hematology Results that were resulted 30 days before or 30 daysafter the date of the Encounter. Date/Time Source Result Type Result - Unit Interpretation Reference Range Comment Jul 11, 2023 10:00 AM [facility] HEP B CORE,TOTAL(W) Specimen Type: [...] 11:56 AM Reporting Lab: [facility] [address] [facility] [address] Performing Lab: [facility] [address] [facility] [address] HEP B CORE,TOTAL(W ) Non Reactive Non [...] 11:56 AM Reporting Lab: [facility] [address] [facility] [address] Performing Lab: [facility] [address] [facility] [address] HEP B SURFACE AG(wh) Non Reactive Non [...] 11:56 AM Reporting Lab: [facility] [address] [facility] [address] Performing Lab: [facility] [address] [facility] [address] HEP B SURF AB(W) REACTIVE Non Reactive Jul 11, 2023 10:00 AM [facility] HEPATITIS C AB(WRJ)w/Reflex Specimen Type: SERUM Comment: , Tests performed on Curtis Social Secretary Alfaro SN:[id number] (405) No HCV antibody detected. If recent infection is suspected or other evidence suggests HCV infection, consider HCV RNA testing Ordering Provider: LAYTON GARCIA Report Released Date/Time: Jun 26, 2023 11:56 AM Reporting Lab[facility] [address] [facility] [address] [facility] [address] [facility] [address] HEPATITIS C AB(WRJ)w/Ref ria Non-Reactive Non-Reactive Jul 11, 2023 10:00 AM [facility] IRON+TIBC(P) Specimen Type: PLASMA Comment: , Tests performed on Curtis Social Secretary Howard SN:[id number] (405). Ordering Provider: LAYTON GARCIA Report Released Date/Time: Jun 26, 2023 11:56 AM Reporting [facility] [address] [place] [facility] [place] [address] Performing [facility]: [facility] [address] [place] [facility] [place] [address] IRON 90 ug/dL 40-160 TIBC 318 ug/dL IRON SATURATION(P ) 28 >15 UIBC(P) 228 ug/dL 126-382 Social History: Smoking Status (Most current) and Tobacco Use (All prior to encounter date) This section includes the most current, and the historical, smoking and tobacco- related health factors from the [place] facility where the Encounter took place. Current Smoking Status This section includes the most current smoking, or tobacco-related health factor, from the [place] facility where the Encounter took place. Date/Time Current Smoking Status Comment [place] [facility] Mar 30, 2023 01:30 PM VA-TOBACCO FORMER USER [facility] Tobacco Use History This section includes a history of the smoking, or tobacco-related health factors, that were collected on or before the date of the Encounter. The data comes from the [place] facility where the Encounter took place. Date/Time Smoking Status/Tobacco Use Comment F acility Mar 30, 2023 01:30 PM [place]-TOBACCO QUIT 5 TO < 15 YRS [facility] Encounter Notes: All associated encounter [...] Time: July@09:00 ACTION: Provider attempted to reach [place] to discuss: (X) No Show Cancellation by clinic Cancellation by Conversion of clinic appointment REASON: for no [...] instructions to [facility]. /karla/ CHILO VIVAS Bulldozer Operator Signed: 08/04/2023 09:45 Receipt Acknowledged By: 08/04/2023 09:59 /karla/ KWAN OSPINA [facility]
--- OUTSIDE RECORDS SUMMARY | 2024-04-17 20:56 | XMS_ITS ---
Author Name [facility] [place] [facility] [place] Address [address] [place] [address] Care Team Providers Care Family Nurse Name Role Phone CONRAD MCCALLUM Primary Care [...] F.W. ROBLEDO [place] DE Dec 18, 2020 [phone] TAZ ARNOLD PATIENT [facility] F.W. ROBLED[place] Dec 18, 2020 [id number] [phone] TAZ ARNOLD PATIENT [employer]ORPL[employer] PRESCRIPT ION RX Dec 18, 2020 [id number] [phone] TAZ ARNOLD PATIENT Selected Encounter This section includes the information on record at [place] for the Encounter. Date/Time Encounter Type Encounter Description Reason Pro vider Source Jul 10, 2023 02:26 PM Outpatient Encounter ADMIN PAT ACTIVTIES (MASNONCT) IHE Encounter Template Text not used by VA Plan of Treatment: Future Appointments (+ 6 months) and Future Tests (+/- 45 days) The Plan of Treatment section includes future care activities for the patient [facility] [place] [facility] This section includes future appointments and future orders which are active, pending or scheduled. Future Appointments This section includes appointments that were scheduled to occur 6 months from the date of the Encounter, up to a maximum of 20 appointments. The data comes from all [place] treatment facilities. Appointment Date/Time Appointment Type Appointme nt Facility Name Jul 11, 2023 10:00 AM AMBULATORY - NONE [facility] Jul 12, 2023 10:00 AM AMBULATORY - [place] [facility] August 02, 2023 01:00 PM AMBULATORY - NONE [place] [facility] August 04, 2023 09:00 AM [place] [facility] August 18, 2023 09:00 AM AM[place]ATORY [place] [facility] Sep 04, 2023 01:00 PM AM[place]ULATORY [place] [facility] Sep 27, 2023 10:00 AM AMBULATORY - [place]IC[place] [facility] Sep 27, 2023 02:00 PM AM[place]ULATORY [place] [facility] Oct 11, 2023 09:30 AM AMBULATORY - [place]IC[place] [facility] Dec 06, 2023 02:00 PM AMBULATORY - [place]ICINE [place] [facility] Dec 26, 2023 02:00 PM AMBULATORY - NONE [facility] Jan 05, 2024 08:15 AM AMBULATORY - NONE [place] [facility] Lab Results: +/- 30 days of the encounter This section includes the Chemistry and Hematology Lab Results on record with [place] for the patient. Radiology Reports and Pathology Reports are provided separately, in subsequent sections. Lab Results This section contains the Chemistry/Hematology Results that were resulted 30 days before or 30 daysafter the date of the Encounter. Date/Time Source Result Type Result - Unit Interpretation Reference Range Comment Jul 11, 2023 10:00 AM [facility] HEP B CORE,TOTAL(W) Specimen Type: [...] Reporting Lab: [facility] [address] [facility] [address] Performing Lab: [facility] [address] [facility] [address] HEP B CORE,TOTAL(W) Non Reactive Non Reactive Jul 11, 2023 10:00 AM [facility] HBSAG PANEL WITH REFLEX CONFIRMATION(WH) Specimen Type: SERUM Comment: A Reactive result (Positive prior to 12/31/12) is diagnostic of acute or chronic hepatitis B infection. The presence of Hepatitis B surface antigen is frequently associated with infectivity. Ordering Provider: LAYTON GARCIA Report Released Date/Time: Jun 26, 2023 11:56 AM Reporting Lab: [facility] [address] [facility] [address] Performing Lab: [address] [address] HEP B SURFACE AG(wh) Non Reactive Non Reactive Jul 11, 2023 10:00 AM [facility] HEP B SURF AB(W) Specimen [...] Reporting Lab: [facility] [address] [facility] [address] Performing Lab: [facility] [address] [facility] [address] HEP B SURF AB(W) REACTIVE Non Reactive Jul 11, 2023 10:00 AM [facility] HEPATITIS C AB(WRJ)w/Reflex Specimen Type: SERUM Comment: , Tests performed on Wefunder Alfaro SN:[id number] (405) No HCV antibody detected. If recent infection is suspected or other evidence suggests HCV infection, consider HCV RNA testing Ordering Provider: LAYTON GARCIA Report Released Date/Time: Jun 26, 2023 11:56 AM Reporting Lab: [facility] [address] [facility] [address] Performing Lab: [facility] [address] [facility] [address] HEPATITIS C AB(WRJ)w/Reflex Non-Reactive Non-Reacti ve Jul 11, 2023 10:00 AM [facility] IRON+TIBC(P) Specimen Type: PLASMA Comment: , Tests performed on Curtis [employer] Howard SN:[id number] (405). Ordering Provider: LAYTON GARCIA Report Released Date/Time: Jun 26, 2023 11:56 AM Reporting Lab: [facility] [address] [facility] [address] Performing Lab: [facility] [address] [facility] [address] IRON 90 ug/dL 40-160 TIBC 318 ug/dL IRON SATURATION(P) 28 >15 UIBC(P) 228 ug/dL 126-382 Jun 16, 2023 10:15 AM [facility] CBC PROFILE Specimen Type: BLOOD No comment entered. Ordering Provider: LAYTON GARCIA Report Released Date/Time: Jun 07, 2023 01:13 PM Reporting Lab: [facility] [address] [facility] [address] Performing Lab: [facility] [address] [facility] [address] WBC 7.1 10*3/uL 4.5-11.0 RBC 5.35 10*6/uL [...] 10*3/uL 0-0 Jun 16, 2023 10:15 AM [facility] P4 GLU,BUN,CREAT,LYTES,CA Specimen Type: PLASMA Comment: , Tests performed on flikdate SN:[id number] (405). Ordering Provider: LAYTON GARCIA Report Released Date/Time: Jun 07, 2023 01:13 PM Reporting Lab: [facility] [address] [facility] [address] Performing Lab: [facility] [address] [facility] [address] UREA NITROGEN 13 mg/dL 7-25 SODIUM 139 mmol/L 135-145 POTASSIUM 4.4 mmol/L 3.5-5.0 CHLORIDE 104 mmol/L 100-110 CARBON DIOXIDE 25 mmol/L 20-30 ANION GAP 10 4-16 GLUCOSE 91 mg/dL 65-100 CREATININE 0.83 mg/dL 0.50-1.50 CALCIUM 9.7 mg/dL 8.5-10.5 eGFR(CKD-EPI 2020) >90 mL/min Jun 16, 2023 10:15 AM [facility] LIVER PROFILE Specimen Type: PLASMA Comment: , Tests performed on flikdate SN:[id number] (405). Ordering Provider: LAYTON GARCIA Report Released Date/Time: Jun 07, 2023 01:13 PM Reporting Lab: [facility] [address] [facility] [address] Performing Lab: [facility] [address] [facility] [address] PROTEIN, TOTAL 7.7 g/dL 6.0-8.5 ALBUMIN 4.3 g/dL 3.2-5.0 BILIRUBIN, TOTAL 0.5 mg/dL 0.2-1.2 ALKALINE PHOSPHATASE 88 U/L 40-150 ALT(SGPT) 82 U/L H 7-52 AST(SGOT) 36 U/L H 5-34 FIB-4 SCORE 0.59 <2.67 Jun 16, 2023 10:15 AM [facility] LIPOPROTEIN CHOLESTEROL FRACT. PANEL Specimen Type: PLASMA Comment: , Tests performed on Curtis [employer] SN:[id number] (405). Ordering Provider: LAYTON GARCIA Report Released Date/Time: Jun 07, 2023 01:13 PM Reporting Lab: [facility] [address] [facility] [address] Performing Lab: [facility] [address] [facility] [address] CHOLESTEROL 200 mg/dL 0-200 TRIGLYCERIDE 255 mg/dL H 0-150 HDL CHOLESTEROL 45 mg/dL >40 LDL CHOLESTEROL (CALC) 104 mg/dL 0-129 Jun 16, 2023 10:15 AM [facility] GLYCOHEMOGLOBIN (A1C ONLY) Specimen Type: BLOOD Comment: , Tests performed on Curtis [employer] Alfaro SN:[id number] (405) Values obtained from A1C measurements can vary. For typical A1C assays, a reported value of 7.0 could actually be between 6.72 and 7.28 if measured by a reference method. A reported value of 9.0 could actually be between 8.73 and 9.27. Ref: http://www.ng sp.org/CAPdat a.asp Ordering Provider: LAYTON GARCIA Report Released Date/Time: Jun 07, 2023 01:13 PM Reporting Lab: [facility] [address] [facility] [address] Performing Lab: [facility] [address] [facility] [address] HEMOGLOBIN A1C 5.1 4.0-5.6 Jun 16, 2023 10:15 AM [facility] THYROID TESTING CASCADE Specimen Type: SERUM Comment: , Tests performed on Curtis [employer] Alfaro SN:[id number] (405) TSH within normal limits. Reflex testing not required. Ordering Provider: LAYTON GARCIA Report Released Date/Time: Jun 07, 2023 01:13 PM Reporting Lab: [facility] [address] [facility] [address] Performing [facility]: [facility] [address] [facility] [address] TSH 0.77 u[IU]/mL 0.35-5.00 Jun 16, 2023 10:15 AM [facility] VIT D 25-OH(WRJ) Specimen Type: SERUM Comment: , Tests performed on [employer] SN:[id number] (405) TSH within normal limits. Reflex testing not required. Ordering Provider: LAYTON GARCIA Report Released Date/Time: Jun 07, 2023 01:13 PM Reporting Lab: [facility] [address] [facility] [address] Per[facility]: [facility] [address] [facility] [address] VIT D 25-OH(WRJ) 14.0 ng/mL L 20.0-50.0 Encounter Notes: All associated encounter notes This [...] Patient Name: TAZ ARNOLD Patient Primary Phone: [phone] Patient Primary Address: [address] [place] [id number] Patient : 1990 Patient Age: 32 Caller/Recipient Relation to Patient: Self Administrative Administrative Note Reason: Returned Call Administrative Note Comments: [place] returning a call and requesting a call back /karla/ CONSTANCE CISNEROS CCC AMSA Signed: 07/10/2023 14:26 Receipt Acknowledged By: 07/12/2023 15:35 /karla/ RISHI PANDA LPN 07/10/2023 15:30 /karla/ MEY KEITA AMSMarisol 07/12/2023 ADDENDUM STATUS: COMPLETED [place] spoke with provider /karla/ RISHI PANDA LPN Signed: 07/12/2023 15:35 CONSTANCE CHAVES Anthony [facility]
--- OUTSIDE RECORDS SUMMARY | 2024-04-17 20:56 | XMS_ITS | Encounter Summary ---
Author Name [place] Organization [place] Address [address] [place] [address] Care Team Providers Care Litigation Legal Secretary Name Role Phone CONRAD MCCALLUM Primary Care [...] F.W. ROBLEDO [place] Dec 18, 2020 [id number] CLAYTONTAZ PATIENT [facility] F.W. [place] Dec 18, 2020 [id number] [phone] CLAYTONTA[place] PATIENT [employer]ORPLUS PRESCRIPT ION RX Dec 18, 2020 [id number] [phone] TAZ ARNOLD PATIENT Selected Encounter This [...] PM PRIMARY Anxiety disorder, unspecified KWAN SALOMON [facility] Plan of Treatment: Future Appointments (+ 6 months) and Future Tests (+/- 45 days) The Plan of Treatment section includes future care activities for the patient from all [place] treatmentfacilities. This section includes future appointments and [...] 11, 2023 09:30 AM AMBULATORY - MEDICINE [facility] Parrish [facility] Dec 06, 2023 02:00 PM AMBULATORY - MEDICINE [facility] Dec 26, 2023 02:00 PM AMBULATORY - NONE [facility] Jan 05, 2024 08:15 AM AMBULATORY - NONE [facility] Active, Pending, and Scheduled Orders This section includes a listing of several types of active, pending, and scheduled orders, including clinic medications orders, diagnostic test orders, procedure orders and consult orders; where the start date of the order is 45 days before the date of the Encounter or 45 days after the date of theEncounter. The data comes from all [facility]. Test Date/Time Test Type Test Details Facility Name Sep 18, 2023 12:00 AM Laboratory - Chemi stry Order LIVER PROFILE LT GREEN(LI HEP) PLASMA SP [facility] Social History: Smoking Status (Most current) [...] 30, 2023 01:30 PM VA-TOBACCO FORMER USER [facility] Tobacco Use History This section includes a history of the smoking, or tobacco-related health factors, that were collected on or before the date of the Encounter. The data comes from the [place] facility where the Encounter took place. Date/Time Smoking Status/Tobacco Use Comment F acility Mar 30, 2023 01:30 PM VA-TOBACCO QUIT 5 TO < 15 YRS [facility] Encounter Notes: All associated encounter notes This section contains the clinical notes associated to the Encounter. Date/Time Encounter Note(s) Provider Source Sep 27, 2023 03:01 PM [facility]: LOCAL TITLE: [facility] Note STANDARD TITLE: [...] anger, irritability, emotional awareness/regulation. /karla/ CHILO VIVAS Living Nurse Signed: 09/27/2023 15:55 KWAN SALOMON [facility]
--- OUTSIDE RECORDS SUMMARY | 2024-04-17 20:56 | XMS_ITS | Encounter Summary ---
Author Name [facility] [place] Address [address] [place] [address] Care Team Providers Care Check And Transfer Beader Name Role Phone CONRAD MCCALLUM Primary Care [...] F.W. ROBLEDO MALENA PA Dec 18, 2020 [id number] [facility] [phone] TAZ ARNOLD PATIENT [facility] F.W. ROBLEDO MALENA PA Dec 18, 2020 [id number] TAZ ARNOLD PATIENT MAXORPLUS PRESCRIPT ION RX Dec 18, 2020 [id number] [phone] LESLY ARNOLDD PATIENT Selected Encounter This section includes the information on record at [place] for the Encounter. Date/Time Encounter Type Encounter [...] AM PRIMARY Anxiety disorder, unspecified LAYTON GARCIA [facility] Plan of Treatment: Future Appointments (+ 6 months) and Future Tests (+/- 45 days) The Plan of Treatment section includes future care activities for the patient from all [place] [facility]. This section includes future appointments and future orders which are active, pending or scheduled. Future Appointments This section includes appointments that were scheduled to occur 6 months from the date of the Encounter, up to a maximum of 20 appointments. The data comes from all [place] treatment [facility]. Appointment Date/Time Appointment Type Appointme nt Facility Name Oct 11, 2023 09:30 AM AMBULATORY [facility]INE [facility] Parrish [facility] Dec 06, 2023 02:00 PM AMBULATORY - [facility]IC[facility] Parrish [facility] Dec 26, 2023 02:00 PM AMBULATORY - NONE [facility] Jan 05, 2024 08:15 AM AMBULATORY - NONE [facility] Active, Pending, and Scheduled Orders This section includes a listing of several types of active, pending, and scheduled orders, including clinic medications orders, diagnostic test orders, procedure orders and consult orders; where the start date of the order is 45 days before the date of the Encounter or 45 days after the date of theEncounter. The data comes from all [facility]. Test Date/Time Test Type Test Details Facility Name Sep 18, 2023 12:00 AM Laboratory - Chemi stry Order LIVER PROFILE LT GREEN(LI HEP) PLASMA SP [facility] Social History: Smoking Status (Most current) and Tobacco Use (All prior to encounter date) This section includes the most current, and the historical, smoking and tobacco- related health factors from the [place] facility where the Encounter took place. Current Smoking Status This section includes the most current smoking, or tobacco-related health factor, from the [place] facility where the Encounter took place. Date/Time Current Smoking Status Carlos cesar Mar 30, 2023 01:30 PM VA-TOBACCO FORMER USER [facility] Tobacco Use History This section includes a history of the smoking, or tobacco-related health factors, that were collected on or before the date of the Encounter. The data comes from the [place] facility where the Encounter took place. Date/Time Smoking Status/Tobacco Use Comment F elicia Mar 30, 2023 01:30 PM VA-TOBACCO QUIT 5 TO < 15 YRS [facility] Encounter Notes: All associated encounter notes [...] use: y Smoke detectors:y Eye care: Eh [facility] eye care Dental care: yes FH: Mother: alive age 50s heart problem myocardial vasospasms - 2 or 2 stents Father: alive age 62 CAGB 2020 T2DM Brother: two basically healthy except one brother had ED visit for stroke like symptoms no clear diagnosis - no hospital admission Sister: PMH: Active problems - Computerized Problem List is the source for the followin. Anxiety ([facility] [id number]) 2. Exposure to Potentially Hazardous Substance ([facility] [id number]) 3. Overweight SURGICAL HISTORY: MEDS: Active Outpatient [...] Data available for this patient [facility]AQUIN MCPHERSON [facility] No Known Allergies Med Recon NoGloary (Tool #1) INCLUDED IN THIS LIST: Alphabetical list of active outpatient prescriptions dispensed from this VA (local) and dispensed from another [place] or [facility] facility (remote) as well as inpatient orders (local pending and active), local clinic medications, locally documented non-VA medications, and local prescriptions that have or been discontinued in the past 90 days. Non-VA Meds Last Documented On: Data not found NOTE The display of VA prescriptions dispensed from another [place] or [facility] facility (remote) is limited to active outpatient prescription entries matched to National Drug File at the originating site and may not include some items such as investigational drugs, compounds, etc. NOT INCLUDED IN THIS LIST: Medications self-entered by the patient into personal health records (i.e. [employer]) are NOT included in this list. Non-VA medications documented outside this [place], remote inpatient orders (regardless of status) and remote clinic medications are NOT included in this list. The patient and provider must always discuss medications the patient is taking, regardless of where the medication was dispensed or obtained. OUTPT CHOLECALCIF 50MCG (D3-2,000UNIT) TAB (Status = Active) TAKE ONE TABLET BY MOUTH ONCE DAILY FOR VITAMIN D DEFICIENCY WHEN HIGH DOSE COMPLETE Rx# [id number] Last Released: 09/12/23 Qty/Days Supply: Rx Expiration Date: 06/26/24 Refills Remainin Indication: FOR VITAMIN D DEFICIENCY OUTPT ERGOCALCIF 1,250MCG (D2-50,000UNIT) CAP (Status = ) TAKE ONE CAPSULE BY MOUTH ONCE A WEEK FOR VITAMIN D DEFICIENCY FOR 13 WEEKS Rx# [id number] Last Released: 06/27/23 Qty/Days Supply: Rx Expiration [...] GARCIA APRN Signed: 09/27/2023 10:29 LAYTON GARCIA [facility]
--- OUTSIDE RECORDS SUMMARY | 2024-04-17 20:56 | XMS_ITS | Encounter Summary ---
Author Name [place] Address [address] [place] [address] Care Team Providers Care Sheet Metal Duct Installer Apprentice Name Role Phone CONRAD MCCALLUM Primary Care [...] MEDICAL EXPENSE (OPT/PROF ) F.W. ROBLEDO MALENA LA Dec 18, 2020 [id number] [facility] [phone] TAZ ARNOLD PATIENT [facility] F.W. ROBLEDO MALENA LA Dec 18, 2020 [id number] TAZ ARNOLD PATIENT MAXORPLUS PRESCRIPT ION RX Dec 18, 2020 [id number] [phone] TAZ ARNOLD PATIENT Selected Encounter This [...] AM PRIMARY Anxiety disorder, unspecified KWAN SALOMON [facility] Plan of Treatment: Future Appointments (+ 6 months) and Future Tests (+/- 45 days) The Plan of Treatment section includes future care activities for the patient from all [place] [facility]. This section includes future appointments and future orders which are active, pending or scheduled. Future Appointments This section includes appointments that were scheduled to occur 6 months from the date of the Encounter, up to a maximum of 20 appointments. The data comes from all [facility]. Appointment Date/Time Appointment Type Appointme nt Facility Name Sep 04, 2023 01:00 PM AMBULATORY - PSYCHIATRY [facility] Sep 27, 2023 10:00 AM AMBULATORY - MEDICINE [facility] E [facility] Sep 27, 2023 02:00 PM AMBULATORY - PSYCHIATRY [facility] Oct 11, 2023 09:30 AM AM[facility]UL[facility] - MEDICINE [facility] E [facility] Dec 06, 2023 02:00 PM AMBULATORY - MEDICINE [facility] [place] [facility] Dec 26, 2023 02:00 PM AMBULATORY - NONE [facility] Jan 05, 2024 08:15 AM AMBULATORY - NONE [facility] Active, Pending, and Scheduled Orders This section includes a listing of several types of active, pending, and scheduled orders, including clinic medications orders, diagnostic test orders, procedure orders and consult orders; where the start date of the order is 45 days before the date of the Encounter or 45 days after the date of theEncounter. The data comes from all [facility]. Test Date/Time Test Type Test Details Facility Name Sep 18, 2023 12:00 AM Laboratory - Chemi stry Order LIVER PROFILE LT GREEN(LI HEP) PLASMA SP [facility] Social History: Smoking Status (Most current) and Tobacco Use (All prior to encounter date) This section includes the most current, and the historical, smoking and tobacco- related health factors from the [place] facility where the Encounter took place. Current Smoking Status This section includes the most current smoking, or tobacco-related health factor, from the [place] facility where the Encounter took place. Date/Time Current Smoking Status Carlos cesar Mar 30, 2023 01:30 PM VA-TOBACCO FORMER USER [facility] Tobacco Use History This section includes a history of the smoking, or tobacco-related health factors, that were collected on or before the date of the Encounter. The data comes from the [place] facility where the Encounter took place. Date/Time Smoking Status/Tobacco Use Comment Jadyn rubi Mar 30, 2023 01:30 PM VA-TOBACCO QUIT 5 TO < 15 YRS [facility] Encounter Notes: All associated encounter [...] to others. ASSESSMENT OF HOMICIDE RISK: Low [place]-Suicide Severity Rating Scale (C-SSRS Screener) 1. Over [...] to responses to other questions. Is the [place] Screen Positive? No Risk Factors Recent psychosocial [...] Strong desire to live /karla/ CHILO VIVAS Shredding Specialist Signed: 08/18/2023 09:59 KWAN SALOMON [facility] August 18, 2023 09:20 AM MENTAL HEALTH CONS ULT: LOCAL TITLE: PCMHI INITIAL EVALUATION CONSULT STANDARD TITLE: MENTAL HEALTH CONSULT DATE OF NOTE: AUGUST 18, 2023@09:20 ENTRY DATE: AUGUST 18, 2023@09:20:21 AUTHOR: KWAN SALOMON EXP COSIGNER: URGENCY: STATUS: COMPLETED PRIMARY CARE MENTAL HEALTH INTEGRATION (PC-MHI) THERAPY INTAKE Ahsahka is a: 32 NEVER MALE Referred by: CON PACT Reason for Referral: Looking for help with behavioral changes. My attitude and behavior is very related. Get help with my anxiety. Notes that his spouse has encouraged him to seek therapy. Ahsahka's appraisal of the referral problem (duration, frequency, intensity, triggering events, etc.): Notes that he has been experiencing a short fuse for over a year. Describes this as short fuse, irritability, frustration on an almost daily basis. Notes that the house being unclean is a trigger. BRIEF SUMMARY OF PAST MENTAL HEALTH TREATMENT: [X] Therapy: Had two visits with a therapist in [facility], prior to coming to the [place] for this episode of care. Same issues/problems [...] weeks:good Trauma history:Denies. 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 RISK SCREENING: [place] Suicide Rating Scale (CSRS) CSSR-S completed 5/31; low acute, low chronic Violence Risk: None. [...] CSSR-S completed today. PLAN FOR FOLLOW-UP FROM TODAYS'S APPOINTMENT: [X]Return to -I clinic for follow-up therapy appointment Date and time negotiated with patient: 09/04/23 at 1pm [ ] PC-MHI clinic prescriber appointment: [ ] Referral to [facility] for therapy evaluation (internal [facility] consult) [ ] No follow-up in -I needed. Ahsahka to return should treatment be needed or desired [ ] declines follow-up at this time EMERGENCY CONTACT INFORMATION AND FOLLOW-UP: [X] I have given the Ahsahka the Veterans 10/10 crisis line number, , in the event that the experiences a MH emergency prior to their first appointment. [X] I have provided the Ahsahka with information on how to reach [facility] and/or their local [facility] with questions about follow-up plan or if the Ahsahka wants to speak with a MH professional before their next appointment. [ ] [place] - [phone] [ ] [place] - [phone] [ ] Lib[place] [facility] [phone] [ ] [place], [place] - [phone] [X] [facility] [phone] [ ] [place], [facility] [phone] [ ] Estelita [facility] [phone] [ ] [facility] - [phone] [X] had no further questions or concerns and agrees to the plan above. [ ] Co-signing Primary Care Provider regarding: Time spent: 50 min /karla/ CHILO VIVAS Shredding Specialist Signed: 08/18/2023 09:59 KWAN SALOMON [facility]
--- OUTSIDE RECORDS SUMMARY | 2024-04-17 20:56 | XMS_ITS | Encounter Summary ---
Author Name [facility] [place] Organization [facility] [place] Address [address] [place] [address] Care Team Providers Care Lead Technical Writer Name Role Phone CONRAD MCCALLUM Primary Care [...] F.W. ROBLEDO MALENA [place] Dec 18, 2020 [id number] CLAYTONTAZ PATIENT [facility] F.W. ROBLEDO MALENA [place] Dec 18, 2020 [id number] [phone] CLAYTONTAZ PATIENT MAXORPLUS PRESCRIPT ION RX Dec 18, 2020 [id number] CLAYTONTAZ PATIENT Selected Encounter This section includes the information on record at [place] for the Encounter. Date/Time Encounter Type Encounter Description Reason Pro vider Source July 26, 2023 10:00 AM Outpatient Encounter COMMUNITY CARE CONSULT I[facility] Encounter Template Text not used by VA Plan of Treatment: Future Appointments (+ 6 months) and Future Tests (+/- 45 days) The Plan of Treatment section includes future care activities for the patient from all [place] [facility]. This section includes future appointments and future orders which are active, pending or scheduled. Future Appointments This section includes appointments that were scheduled to occur 6 months from the date of the Encounter, up to a maximum of 20 appointments. The data comes from all [place] treatment facilities. Appointment Date/Time Appointment Type Appointme nt Facility Name August 02, 2023 01:00 PM AMBULATORY - NONE [place] [facility] August 04, 2023 09:00 AM [place] [facility] August 18, 2023 09:00 AM AMBULATORY [place] [facility] Sep 04, 2023 01:00 PM AMBULATORY - [place] [facility] Sep 27, 2023 10:00 AM AMBULATORY [place] [facility] Sep 27, 2023 02:00 PM AMBULATORY - [place] [facility] Oct 11, 2023 09:30 AM AMBULATORY [place]IC[place] [facility] Dec 06, 2023 02:00 PM AMBULATORY - [place]IC[place] [facility] Dec 26, 2023 02:00 PM AMBULATORY - NONE [facility] Jan 05, 2024 08:15 AM AMBULATORY - NONE [place] [facility] Lab Results: +/- 30 days of the [...] Range Comment Jul 11, 2023 10:00 AM [facility] HEP B CORE,TOTAL(W) Specimen Type: [...] Reporting Lab: [facility] [address] [address] Performing Lab: [facility] [address] [address] HEP B CORE,TOTAL(W ) Non Reactive Non Reactive Jul 11, 2023 10:00 AM [facility] HBSAG PANEL WITH REFLEX CONFIRMATION(WH) Specimen Typ e: SERUM Comment: A Reactive result (Positive prior to 12/31/12) is diagnostic of acute or chronic hepatitis B infection. The presence of Hepatitis B surface antigen is frequently associated with infectivity. Ordering Provider: LAYTON GARCIA Report Released Date/Time: Jun 26, 2023 11:56 AM Reporting Lab: [facility] [address] [address] Performing Lab: [facility] [address] [address] HEP B SURFACE AG(wh) Non Reactive Non Reactive Jul 11, 2023 10:00 AM [facility] HEP B SURF AB(W) Specimen [...] Reporting Lab: [facility] [address] [address] Performing Lab: [facility] [address] [address] HEP B SURF AB(W) REACTIVE Non Reactive Jul 11, 2023 10:00 AM [facility] HEPATITIS C AB(WRJ)w/Reflex Specimen Type: SERUM Comment: , Tests performed on Curtis Order Builder Loader Alfaro SN:[id number] (405) No HCV antibody detected. If recent infection is suspected or other evidence suggests HCV infection, consider HCV RNA testing Ordering Provider: LAYTON GARCIA Report Released Date/Time: Jun 26, 2023 11:56 AM Reporting Lab[facility] [address] [address] Performing Lab: [facility] [address] [address] HEPATITIS C AB(WRJ)w/Ref ria Non-Reactive Non-Reactive Jul 11, 2023 10:00 AM [facility] IRON+TIBC(P) Specimen Type: PLASMA Comment: , Tests performed on [address] SN:[id number] (405). Ordering Provider: LAYTON GARCIA Report Released Date/Time: Jun 26, 2023 11:56 AM Reporting [facility] [address] [address] Performing Lab: [facility] [address] [address] IRON 90 ug/dL 40-160 TIBC 318 ug/dL IRON SATURATION(P ) 28 >15 UIBC(P) 228 ug/dL 126-382
--- OUTSIDE RECORDS SUMMARY | 2024-04-17 20:56 | XMS_ITS | Encounter Summary ---
Author Name [facility] [place] Address [address] [place] [address] Care Team Providers Care Decorating And Assembly Supervisor Name Role Phone CONRAD MCCALLUM Primary [...] F.W. ROBLEDO MALENA AR Dec 18, 2020 [id number] CLAYTONWES PATIENT [facility] M[facility] HEALTH F.W. ROBLEDO MALENA [place] Dec 18, 2020 [id number] CLAYTONWES PATIENT MAXORPLUS PRESCRIPT ION RX Dec 18, 2020 [id number] WES ARNOLD PATIENT Selected Encounter This section includes the information on record at [place] for the Encounter. Date/Time Encounter Type Encounter [...] PM PRIMARY Anxiety disorder, unspecified KWAN SALOMON [facility] Plan of Treatment: Future Appointments (+ 6 months) and Future Tests (+/- 45 days) The Plan of Treatment section includes future care activities for the patient from all [place] treatmentfacilities. This section includes future appointments and future orders which are active, pending or scheduled. Future Appointments This section includes appointments that were scheduled to occur 6 months from the date of the Encounter, up to a maximum of 20 appointments. The data comes from all [place] treatment facilities. Appointment Date/Time Appointment Type Appointme nt Facility Name Sep 27, 2023 10:00 AM AMBULATORY - MEDICINE [facility] E [facility] Sep 27, 2023 02:00 PM AMBULATORY - PSYCHIATRY [facility] Oct 11, 2023 09:30 AM AMBULATORY - MEDICINE [facility] E [facility] Dec 06, 2023 02:00 PM AMBULATORY - MEDICINE [facility] Parrish [facility] Dec 26, 2023 02:00 PM AMBULATORY - NONE [facility] Jan 05, 2024 08:15 AM AMBULATORY - NONE [facility] Active, Pending, and Scheduled Orders This [...] PROFILE LT GREEN(LI HEP) PLASMA SP JOAQUIN [facility] Social History: Smoking Status (Most current) and Tobacco Use (All prior to encounter date) This section includes the most current, and the historical, smoking and tobacco- related health factors from the [place] facility where the Encounter took place. Current Smoking Status This section includes the most current smoking, or tobacco-related health factor, from the [place] facility where the Encounter took place. Date/Time Current Smoking Status Carlos cesar Mar 30, 2023 01:30 PM VA-TOBACCO FORMER USER [facility] Tobacco Use History This section includes a history of the smoking, or tobacco-related health factors, that were collected on or before the date of the Encounter. The data comes from the [place] facility where the Encounter took place. 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 PATIENT'S PERCEPTION OF NEEDS AND PREFERENCES: I need to learn about my illness PATIENT'S STRENGTHS/ABILITIES: Expressed desire/motivation for change Housing Resiliency Accepts guidance/Feedback Capable of [place] Able to maintain IADLs Good Hygiene INTERDISCIPLINARY INTEGRATED SUMMARY: Presenting complaint: I'd like to be able to better communicate my emotion to both my and kids MENTAL HEALTH DIAGNOSES AND RELEVANT MEDICAL CONDITIONS: Anxiety ([facility] [id number]) TREATMENT PLAN: Problem: Anxiety Goal: To better understand his experience with anxiety and how to best manage symptoms Objective: Bi-Weekly psychotherapy Projected Target Date: 02/04/2024 Intervention: Cognitive Behavioral Therapy Providers: KWAN SALOMON Time Frame: One time every 2 weeks for 5 months Treating Specialty: Outpatient Care Renewal Date: 10/04/2023 Entered Treatment: 09/04/2023 @ 01:29PM Anticipated Discharge: 02/04/2024 Actual Discharge: None /karla/ CHILO VIVAS Gin Pole Operator Signed: 09/04/2023 13:30 KWAN SALOMON [facility] Sep 04, 2023 01:05 PM MENTAL HEALTH [...] [facility] therapy Summary of Session: Met with Wes for scheduled session. Completed Mh tx plan. [...] anger, irritability, emotional awareness/regulation. /karla/ CHILO VIVAS Gin Pole Operator Signed: 09/04/2023 16:08 KWAN SALOMON [facility]
--- OUTSIDE RECORDS SUMMARY | 2024-04-17 20:56 | XMS_ITS ---
Author Name [facility] [place] Organization [facility] [place] Address [address] [place] [address] Care Team Providers Care Rabies Inspector Name Role Phone CONRAD MCCALLUM Primary Care [...] [place] Dec 18, 2020 [id number] TAZ ARNOLD PATIENT [facility] [place] Dec 18, 2020 [id number] TAZ ARNOLD PATIENT [employer]ORPL[employer] PRESCRIPT ION RX Dec 18, 2020 [id number] TAZ ARNOLD PATIENT Selected Encounter This section includes the information on record at [place] for the Encounter. Date/Time Encounter Type Encounter Description Reason Pro vider Source Oct 02, 2023 12:58 PM Outpatient Encounter ADMIN PAT ACTIVTIES (MASNONCT) IHE Encounter Template Text not used by [facility] Plan of Treatment: Future Appointments (+ 6 months) and Future Tests (+/- 45 days) The Plan of Treatment section includes future care activities for the patient from all [place] [facility]. This section includes future appointments and future orders which are active, pending or scheduled. Future Appointments This section includes appointments that were scheduled to occur 6 months from the date of the Encounter, up to a maximum of 20 appointments. The data comes from all [facility]. Appointment Date/Time Appointment Type Appointme nt Facility Name Oct 11, 2023 09:30 AM AMBULATORY - MEDICINE AMANDA MCPHERSON [facility] Dec 06, 2023 02:00 PM AMBULATORY - MEDICINE AMANDA MCPHERSON [facility] Dec 26, 2023 02:00 PM AMBULATORY - NONE [facility] Jan 05, 2024 08:15 AM AMBULATORY - NONE JOAQUIN ROLDAN [facility] Active, Pending, and Scheduled Orders This section includes a listing of several types of active, pending, and scheduled orders, including clinic medications orders, diagnostic test orders, procedure orders and consult orders; where the start date of the order is 45 days before the date of the Encounter or 45 days after the date of theEncounter. The data comes from all [facility]. Test Date/Time Test Type Test Details Facility Name Sep 18, 2023 12:00 AM Laboratory - Chemi stry Order LIVER PROFILE LT GREEN(LI HEP) PLASMA SP JOAQUIN MCPHERSON [facility] Encounter Notes: All associated encounter notes [...] Patient Name: TAZ ARNOLD Patient Primary Phone: [phone] Patient Primary Address: [address] [place] [id number] Patient : 1990 Patient Age: 32 Caller/Recipient Relation to Patient: Self Administrative Administrative Note Reason: Other Administrative Note Comments: Triage Symptom call for left knee pain (no injury noted). Recommendation was face 2 face with PCP within 24 hours. No appointments available. [place] was given Urgent Care as a backup and will be going to Urgent Care to have left knee looked at. /es/ PRABHJOT LYNNE VISN1 CCC AMSA Signed: 10/02/2023 12:58 Receipt Acknowledged By: 10/02/2023 13:05 /es/ RISHI PANDA LPN 10/03/2023 10:23 /es/ ZAIRE LYNCH Registered Nurse 10/03/2023 ADDENDUM STATUS: COMPLETED Message is left requesting call back. FU on UC visit. /es/ ZAIRE LYNCH Registered Nurse Signed: 10/03/2023 10:23 PRABHJOT LYNNE [facility]
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
--- OUTSIDE RECORDS SUMMARY | 2024-04-17 20:57 | XMS_ITS | Encounter Summary ---
Author Name [facility] [place] [facility] [place] Organization [facility] [place] Address [address] [place] [address] Care Team Providers Care Housekeeper/Laundry Assistant Name Role Phone CONRAD MCCALLUM Primary Care [...] MEDICAL EXPENSE (OPT/PROF ) [place] Dec 18, 2020 [phone] CLAYTONTAZ PATIENT [facility] [place] Dec 18, 2020 [id number] [phone] TAZ ARNOLD PATIENT [facility] PRESCRIPT ION RX Dec 18, 2020 [phone] TAZ ARNOLD PATIENT Selected Encounter This section includes the information on record at [place] for the Encounter. Date/Time Encounter Type Encounter Description Reason Pro vider Source Oct 18, 2023 09:15 AM Outpatient Encounter PCMIN INDIV IHE Encounter Template Text not used [...] 02:00 PM AMBULATORY - MEDICINE AMANDA MCPHERSON [facility] Dec 26, 2023 02:00 PM AMBULATORY - NONE [facility] Jan 05, 2024 08:15 AM AMBULATORY - NONE JOAQUIN ROLDAN [facility] Active, Pending, and Scheduled Orders This section includes a listing of several types of active, pending, and scheduled orders, including clinic medications orders, diagnostic test orders, procedure orders and consult orders; where the start date of the order is 45 days before the date of the Encounter or 45 days after the date of theEncounter. The data comes from all [place] treatment [facility]. Test Date/Time Test Type Test Details Facility Name Sep 18, 2023 12:00 AM Laboratory - Chemi stry Order LIVER PROFILE LT GREEN(LI HEP) PLASMA SP JOAQUIN MCPHERSON [facility] Encounter Notes: All associated encounter notes This section contains the clinical notes associated to the Encounter. Date/Time Encounter Note(s) Provider Source Oct 18, 2023 09:15 AM MENTAL HEALTH ADMI NISTRATIVE NOTE: LOCAL TITLE: Administrative Note/Mental Health STANDARD TITLE: MENTAL HEALTH ADMINISTRATIVE NOTE DATE OF NOTE: OCT 18, 2023@09:15 ENTRY DATE: OCT 18, 2023@09:15:42 AUTHOR: KWAN SALOMON EXP COSIGNER: URGENCY: STATUS: COMPLETED Left VM requesting return phone call to reschedule at earliest convenience. No safety concerns noted based on most recent encounter. /karla/ CHILO VIVAS Director Long Term Care Signed: 10/18/2023 09:16 KWAN SALOMON [facility]
--- OUTSIDE RECORDS SUMMARY | 2024-04-17 20:57 | XMS_ITS | Encounter Summary ---
Author Name [facility] [place] Organization [facility] [place] Address [address] [place] [address] Care Team Providers Care Assembly And Packing Supervisor Name Role Phone CONRAD MCCALLUM Primary [...] [facility]. [place] Dec 18, 2020 [id number] CLAYTONTAZ PATIENT [facility] [place] [place] Dec 18, 2020 [id number] TAZ ARNOLD PATIENT [facility] PRESCRIPT ION RX Dec 18, 2020 [phone] TAZ ARNOLD PATIENT Selected Encounter This section includes the information on record at [place] for the Encounter. Date/Time Encounter Type Encounter Description Reason Pro vider Source Oct 13, 2023 01:56 PM Outpatient Encounter PCMMI INDIV IHE Encounter Template Text not used by [facility] Plan of Treatment: Future Appointments (+ 6 months) and Future Tests (+/- 45 days) The Plan of Treatment section includes future care activities for the patient from all [place] [facility]. This section includes future appointments and future orders which are active, pending or scheduled. Future Appointments This section includes appointments that were scheduled to occur 6 months from the date of the Encounter, up to a maximum of 20 appointments. The data comes from all [place] treatment facilities. Appointment Date/Time Appointment Type Appointme nt Facility Name Dec 06, 2023 02:00 PM AMBULATORY - MEDICINE [facility] Parrish MCPHERSON [facility] Dec 26, 2023 02:00 PM AMBULATORY - NONE [facility] Jan 05, 2024 08:15 AM AMBULATORY - NONE JOAQUIN ROLDAN [facility] Active, Pending, and Scheduled Orders This section includes a listing of several types of active, pending, and scheduled orders, including clinic medications orders, diagnostic test orders, procedure orders and consult orders; where the start date of the order is 45 days before the date of the Encounter or 45 days after the date of theEncounter. The data comes from all [facility]. Test Date/Time Test Type Test Details Facility Name Sep 18, 2023 12:00 AM Laboratory - Chemi stry Order LIVER PROFILE LT GREEN(LI HEP) PLASMA SP JOAQUIN MCPHERSON [facility] Encounter Notes: All associated encounter notes This section contains the clinical notes associated to the Encounter. Date/Time Encounter Note(s) Provider Source Oct 13, 2023 01:56 PM NO SHOW NOTE: LOCAL TITLE: Mental Health No Show/Clinic Cancel/Conversion Note STANDARD TITLE: NO SHOW NOTE DATE OF NOTE: OCT 13, 2023@13:56 ENTRY DATE: OCT 13, 2023@13:56:39 AUTHOR: KWAN SALOMON EXP COSIGNER: URGENCY: STATUS: COMPLETED ====== MENTAL HEALTH NO SHOW/CLINIC CANCELLATION/CLINIC CONVERSION NOTE ====== Appointment Date & Time: Sep@14:00 ACTION: Provider attempted to reach [place] to discuss: No Show Cancellation by clinic (X) Cancellation by [place] Conversion of clinic appointment REASON: for no show or clinic cancel/reschedule: called in and left message indicating he would not be able to make today's scheduled appt. OUTCOME: Left [place] voicemail message: Left message requesting return phone call to reschedule at earliest convenience Any Acute Safety Concerns? No If Yes, Action Taken or Further Follow-up: (X) Co-sign MSAs at location to this note to take action on the clinic appt and add any additional instructions to [facility]SA group. /karla/ CHILO VIVAS [employer] Signed: 10/13/2023 13:57 KWAN SALOMON [facility]
--- OUTSIDE RECORDS SUMMARY | 2024-04-17 20:57 | XMS_ITS | Encounter Summary ---
Author Name [facility] [place] [facility] [place] Address [address] [place] [address] Care Team Providers Care Siebel Consultant Name Role Phone CONRAD MCCALLUM Primary Care [...] MEDICAL EXPENSE (OPT/PROF ) [facility] [place] [place] Dec 18, 2020 [id number] [phone] TAZ ARNOLD PATIENT [facility] MENTAL HEALTH [facility] [place] Dec 18, 2020 [id number] [phone] TAZ ARNOLD PATIENT [employer] [facility] Dec 18, 2020 [id number] TAZ ARNOLD PATIENT Selected Encounter This section includes the information on record at [place] for the Encounter. Date/Time Encounter Type Encounter Description Reason Pro vider Source Oct 25, 2023 10:53 AM Outpatient Encounter TELEPHONE TRIAGE IHE Encounter Template Text not used by [facility] Plan of Treatment: Future Appointments (+ 6 months) and Future Tests (+/- 45 days) The Plan of Treatment section includes [facility] This section includes future appointments and future orders which are active, pending or scheduled. Future Appointments This section includes appointments that were scheduled to occur 6 months from the date of the Encounter, up to a maximum of 20 appointments. The data comes from all [facility] facilities. Appointment Date/Time Appointment Type Appointme nt Facility Name Dec 06, 2023 02:00 PM AMBULATORY - MEDICINE [facility] Dec 26, 2023 02:00 PM AMBULATORY - NONE [facility] Jan 05, 2024 08:15 AM AMBULATORY - NONE [place] [facility] Active, Pending, and Scheduled Orders This section includes a listing of several types of active, pending, and scheduled orders, including clinic medications orders, diagnostic test orders, procedure orders and consult orders; where the start date of the order is 45 days before the date of the Encounter or 45 days after the date of theEncounter. The data comes from all [facility]. Test Date/Time Test Type Test Details Facility Name Sep 18, 2023 12:00 AM Laboratory - Chemi stry Order LIVER PROFILE LT GREEN(LI HEP) PLASMA SP [facility] Encounter Notes: All associated encounter notes This section contains the clinical notes associated to the Encounter. Date/Time Encounter Note(s) Provider Source Oct 25, 2023 10:53 AM ADMINISTRATIVE NOT E: LOCAL TITLE: Has Admin Note STANDARD TITLE: ADMINISTRATIVE NOTE DATE OF NOTE: OCT 25, 2023@10:53 ENTRY DATE: OCT 25, 2023@10:53:47 AUTHOR: LIUDMILA HOLLEY EXP COSIGNER: URGENCY: STATUS: COMPLETED Reason for call Clinic Name:[facility] RECALL/[facility] 1st call 09/25/23 2nd call 10/25/23 Letter sent 09/25/23 Discontinued 10/25/23 PID 09/18/23 FAULURE TO RESPOND /karla/ LIUDMILA HOLLEY Signed: 10/25/2023 10:54 LIUDMILA HOLLEY [facility]
--- OUTSIDE RECORDS SUMMARY | 2024-04-17 20:57 | XMS_ITS | Encounter Summary ---
Author Name [facility] [place] [facility] [place] Address [address] [place] [address] Care Team Providers Care Pulpwood Cutter Name Role Phone CONRAD MCCALLUM Primary Care [...] [facility] [place] Dec 18, 2020 [id number] CLAYTONTAZ PATIENT [employer] [facility] M[facility]AL [facility] [place] Dec 18, 2020 [id number] CLAYTONTA[place] PATIENT [employer] PRES[employer] ION RX Dec 18, 2020 [id number] TAZ ARNOLD PATIENT Selected Encounter This section includes the information on record at [place] for the Encounter. Date/Time Encounter Type Encounter Description Reason Pro vider Source Oct 20, 2023 04:16 PM Outpatient Encounter PCMIA INDIV IHE Encounter Template Text not used by [facility] Plan of Treatment: Future Appointments (+ 6 months) and Future Tests (+/- 45 days) The Plan of Treatment section includes future care activities for the patient from all [place] treatmentfacilities. This section includes future appointments and [...] PM AMBULATORY - MEDICINE [facility] Dec 26, 2023 02:00 PM AMBULATORY - NONE [facility] Jan 05, 2024 08:15 AM AMBULATORY - NONE [facility] Active, Pending, and Scheduled Orders This section includes a listing of several types of active, pending, and scheduled orders, including clinic medications orders, diagnostic test orders, procedure orders and consult orders; where the start date of the order is 45 days before the date of the Encounter or 45 days after the date of theEncounter. The data comes from all [place] treatment [facility]. Test Date/Time Test Type Test Details Facility Name Sep 18, 2023 12:00 AM Laboratory - Chemi stry Order LIVER PROFILE LT GREEN(LI HEP) PLASMA SP [facility] Encounter Notes: All associated encounter notes This section contains the clinical notes associated to the Encounter. Date/Time Encounter Note(s) Provider Source Oct 20, 2023 04:16 PM MENTAL HEALTH ADMI NISTRATIVE NOTE: LOCAL TITLE: Administrative Note/Mental Health STANDARD TITLE: MENTAL HEALTH ADMINISTRATIVE NOTE DATE OF NOTE: OCT 20, 2023@16:16 ENTRY DATE: OCT 20, 2023@16:16:11 AUTHOR: KWAN SALOMON EXP COSIGNER: URGENCY: STATUS: COMPLETED Left VM requesting return phone call to reschedule at earliest convenience. No safety concerns noted based on most recent encounter. /karla/ CHILO VIVAS Clerical Order Filler Signed: 10/20/2023 16:16 KWAN SALOMON [facility]
--- OUTSIDE RECORDS SUMMARY | 2024-04-17 20:57 | XMS_ITS | Encounter Summary ---
Author Name [facility] [place] Organization [facility] [place] Address [address] [place] [address] Care Team Providers Care Dough Sheeter Name Role Phone CONRAD MCCALLUM Primary Care [...] F.W. ROBLEDO MALENA ID Dec 18, 2020 [id number] [facility] TAZ ARNOLD PATIENT [facility] F.W. ROBLEDO MALENA ID Dec 18, 2020 [id number] TAZ ARNOLD PATIENT MAXORPLUS PRESCRIPT ION RX Dec 18, 2020 [id number] [phone] TAZ ARNOLD PATIENT Selected Encounter This section includes the information on record at CT for the Encounter. Date/Time Encounter Type Encounter Description Reason Provider Source Dec 06, 2023 02:00 PM Outpatient Encounter TELEPHONE PRIMARY CARE ICD-10-CM R94.5 Abnormal results of liver function studies LAYTON GARCIA IHParrish Encounter Template Text not used by [facility] Assessments - Encounter Diagnoses This section includes the primary and secondary diagnoses documented for the Encounter. Date/Time Primary/Secondary Diagnosis Diagnosis Name Provider Source Dec 06, 2023 02:00 PM PRIMARY Abnormal results of liver function studies LAYTON GARCIA [facility] Dec 06, 2023 02:00 PM SECONDARY Anxiety disorder, unspecified ROBERTO GARCIAN Itzel [facility] Dec 06, 2023 02:00 PM SECONDARY Noninfective gastroenteritis and colitis, unspecified LAYTON GARCIA [facility] Plan of Treatment: Future Appointments (+ 6 months) and Future Tests (+/- 45 days) The Plan of Treatment section includes future care activities for the patient from all CT treatmentfacilities. This section includes future appointments and future orders which are active, pending or scheduled. Future Appointments This section includes appointments that were scheduled to occur 6 months from the date of the Encounter, up to a maximum of 20 appointments. The data comes from all CT treatment facilities. Appointment Date/Time Appointment Type Appointme nt Facility Name Dec 26, 2023 02:00 PM AMBULATORY - NONE [facility] Jan 05, 2024 08:15 AM AMBULATORY - NONE [facility] May 20, 2024 09:00 AM AMBULATORY - MEDICINE [facility] Lab Results: +/- 30 days of the encounter This section includes the Chemistry and Hematology Lab Results on record with CT for the patient. Radiology Reports and Pathology Reports are provided separately, in subsequent sections. Lab Results This section contains the Chemistry/Hematology Results that were resulted 30 days before or 30 daysafter the date of the Encounter. Date/Time Source Result Type Result - Unit Interpretation Reference Range Comment Dec 26, 2023 02:09 PM [facility] LIVER PROFILE Specimen Type: PLASMA Comment: , Tests performed on U[employer] [id number] ([id number]). Ordering Provider: ROBERTO GARCIA Report Released Date/Time: Sep 27, 2023 10:27 AM Reporting Lab: [facility] [address] [place] [address] Performing Lab: [facility] [address] [facility] [address] PROTEIN, TOTAL 7.4 g/dL 6.0-8.5 ALBUMIN 4.2 g/dL 3.2-5.0 BILIRUBIN, TOTAL 0.5 mg/dL 0.2-1.2 ALKALINE PHOSPHATASE 75 U/L 40-150 ALT(SGPT) 61 U/L H 7-52 AST(SGOT) 31 U/L 5-34 FIB-4 SCORE 0.60 <2.67 Social History: Smoking Status (Most current) [...] Facil ity Mar 30, 2023 01:[address]-TOBACCO FORMER USER [facility] Tobacco Use History This section includes a history of the smoking, or tobacco-related health factors, that were collected on or before the date of the Encounter. The data comes from the CT facility where the Encounter took place. Date/Time Smoking Status/Tobacco Use Comment F acility Mar 30, 2023 01:[address]-TOBACCO QUIT 5 TO < 15 YRS [facility] Radiology Reports: +/- 30 days of the encounter Radiology Reports For cases when an order for radiology services may have been completed prior to the date of the Encounter, the report list includes the Radiology Reports that were completed up to 30 days before dateof the Encounter. For cases when an order for radiology services may have been completed after the date of the Encounter, the report list also includes the Radiology Reports that were completed up to30 days after date of the Encounter. The data comes from all CT treatment facilities. Date/Time Radiology Report Provider Source Jan 05, 2024 08:02 AM ULTRASOUND RUQ (GB,LIVER,BILIARY): TAZ ARNOLD [id number] -1990 M Ex Date: JAN 05, 2024@08:02 Req Phys: ISAURO HANDY Loc: LIT PHONE PACT T (Req'g Loc) Img Loc: ULTRASOUND (OOS) Service: [place] [address] (Case [id number] COMPLETE) ULTRASOUND RUQ (GB,LIVER,BILIARY)(US Detailed) CPT:46557 Reason for Study: elevated liver functions - ? hepatocellular damage Clinical History: Report Status: Verified Date Reported: JAN 05, 2024 Date Verified: JAN 05, 2024 Strip Machine Operator E-Sig:/ES/ANGÉLIAC SMITH Report: Examination: Ultrasound abdomen and liver elastography. Indication: elevated liver functions - ? hepatocellular damage. Technique: Real-time grayscale ultrasonographic imaging with color Doppler was used for evaluation of the right upper abdominal quadrant. Hepatic stiffness was evaluated using sonographic elastography technique. Comparison: None. Findings: Portions of liver are not well seen secondary to suboptimal penetration which limits examination. The liver demonstrates diffuse coarse echogenicity and diffuse increased echogenicity. There is no evidence of intrahepatic biliary ductal dilatation. The liver measures 15.3 cm craniocaudal as measured in the sagittal plane. Color Doppler interrogation main portal vein demonstrates antegrade flow. Main portal vein is normal in caliber measuring 1.1 cm diameter. There is monophasic waveform associated with the main portal vein with peak systolic velocity measuring approximately 20 cm/s. Liver elastography EQI Med (kPa): 7.69. Liver EQI IQR/Med: (%): 9. The gallbladder is normal in size. There is no gallbladder wall thickening or pericholecystic fluid. No cholelithiasis is seen. The common duct measures 0.3 cm in diameter. The pancreas is normal in appearance. The right kidney measures 10.5 cm craniocaudal as measured in sagittal plane. The right kidney demonstrates normal echogenicity and normal cortical thickness without evidence of hydronephrosis or nephrolithiasis. Impression: Portions of liver are not well seen secondary to suboptimal penetration which limits examination. The liver demonstrates diffuse coarse echogenicity and diffuse increased echogenicity which can be seen with hepatic cirrhosis and hepatic fatty infiltration. Evaluation of hepatic stiffness suggests stage to fibrosis. Primary Diagnostic Code: NO IMMEDIATE ATTENTION REQUIRED Primary Interpreting Staff: ANGÉLICA SMITH, radiologist (Strip Machine Operator) /fml ANGÉLICA SMITH [facility] Jan 05, 2024 08:02 AM ELASTOGRAPHY PARJUANCHO CHANCEA (E.G., ORGAN): TAZ ARNOLD [id number] -1990 M [facility] Date: JAN 05, 2024@08:02 Req Phys: ISAURO HANDY Loc: LIT PHONE PACT T (Req'g Loc) Img Loc: ULTRASOUND (OOS) Service: Unknown [facility] [place] [address] (Case [id number] COMPLETE) ELASTOGRAPHY PARENCHYMA (E.G., OR(US Detailed) CPT:63735 Reason for Study: elevated liver functions ? hepatocellular damage Clinical History: Report Status: Verified Date Reported: JAN 05, 2024 Date Verified: JAN 05, 2024 Strip Machine Operator E-Sig:/ES/ANGÉLICA SMITH Report: Examination: Ultrasound abdomen and liver elastography. Indication: elevated liver functions - ? hepatocellular damage. Technique: Real-time grayscale ultrasonographic imaging with color Doppler was used for evaluation of the right upper abdominal quadrant. Hepatic stiffness was evaluated using sonographic elastography technique. Comparison: None. Findings: Portions of liver are not well seen secondary to suboptimal penetration which limits examination. The liver demonstrates diffuse coarse echogenicity and diffuse increased echogenicity. There is no evidence of intrahepatic biliary ductal dilatation. The liver measures 15.3 cm craniocaudal as measured in the sagittal plane. Color Doppler interrogation main portal vein demonstrates antegrade flow. Main portal vein is normal in caliber measuring 1.1 cm diameter. There is monophasic waveform associated with the main portal vein with peak systolic velocity measuring approximately 20 cm/s. Liver elastography EQI Med (kPa): 7.69. Liver EQI IQR/Med: (%): 9. The gallbladder is normal in size. There is no gallbladder wall thickening or pericholecystic fluid. No cholelithiasis is seen. The common duct measures 0.3 cm in diameter. The pancreas is normal in appearance. The right kidney measures 10.5 cm craniocaudal as measured in sagittal plane. The right kidney demonstrates normal echogenicity and normal cortical thickness without evidence of hydronephrosis or nephrolithiasis. Impression: Portions of liver are not well seen secondary to suboptimal penetration which limits examination. The liver demonstrates diffuse coarse echogenicity and diffuse increased echogenicity which can be seen with hepatic cirrhosis and hepatic fatty infiltration. Evaluation of hepatic stiffness suggests stage to fibrosis. Primary Diagnostic Code: NO IMMEDIATE ATTENTION REQUIRED Primary Interpreting Staff: ANGÉLICA SMITH, radiologist (Strip Machine Operator) /fml ANGÉLICA SMITH [facility] Jan 05, 2024 08:02 AM DUPLEX SCAN:LIMITED,A.INFLOW/V.OUTFL OW OF ABD/PELV/RP ORGANS: TAZ ARNOLD [id number] -1990 Sree Exm Date: JAN 05, 2024@08:02 Req Phys: ISAURO HANDY Lisa Loc: LIT PHONE PACT T (Req'g Loc) Img Loc: ULTRASOUND (OOS) Service: [place] [facility] [place] [address] (Case [id number] COMPLETE) DUPLEX SCAN:LIMITED,A.INFLOW/V.OU(US Detailed) CPT:89834 Reason for Study: elevated liver function Clinical History: Report Status: Verified Date Reported: JAN 05, 2024 Date Verified: JAN 05, 2024 Strip Machine Operator E-Sig:/ES/ANGÉLICA SMITH Report: Examination: Ultrasound abdomen and liver elastography. Indication: elevated liver functions - ? hepatocellular damage. Technique: Real-time grayscale ultrasonographic imaging with color Doppler was used for evaluation of the right upper abdominal quadrant. Hepatic stiffness was evaluated using sonographic elastography technique. Comparison: None. Findings: Portions of liver are not well seen secondary to suboptimal penetration which limits examination. The liver demonstrates diffuse coarse echogenicity and diffuse increased echogenicity. There is no evidence of intrahepatic biliary ductal dilatation. The liver measures 15.3 cm craniocaudal as measured in the sagittal plane. Color Doppler interrogation main portal vein demonstrates antegrade flow. Main portal vein is normal in caliber measuring 1.1 cm diameter. There is monophasic waveform associated with the main portal vein with peak systolic velocity measuring approximately 20 cm/s. Liver elastography EQI Med (kPa): 7.69. Liver EQI IQR/Med: (%): 9. The gallbladder is normal in size. There is no gallbladder wall thickening or pericholecystic fluid. No cholelithiasis is seen. The common duct measures 0.3 cm in diameter. The pancreas is normal in appearance. The right kidney measures 10.5 cm craniocaudal as measured in sagittal plane. The right kidney demonstrates normal echogenicity and normal cortical thickness without evidence of hydronephrosis or nephrolithiasis. Impression: Portions of liver are not well seen secondary to suboptimal penetration which limits examination. The liver demonstrates diffuse coarse echogenicity and diffuse increased echogenicity which can be seen with hepatic cirrhosis and hepatic fatty infiltration. Evaluation of hepatic stiffness suggests stage to fibrosis. Primary Diagnostic Code: NO IMMEDIATE ATTENTION REQUIRED Primary Interpreting Staff: ANGÉLICA SMITH, radiologist (Strip Machine Operator) /fml ANGÉLICA SMITH JCAnthony [facility] Encounter Notes: All associated encounter notes This section contains the clinical notes associated to the Encounter. Date/Time Encounter Note(s) Provider Source Jan 11, 2024 01:44 PM PRIMARY CARE ADMINISTRATIVE NOTE: LOCAL TITLE: Administrative Note/Primary Care STANDARD TITLE: PRIMARY CARE ADMINISTRATIVE NOTE DATE OF NOTE: JAN 11, 2024@13:44 ENTRY DATE: JAN 11, 2024@13:44:56 AUTHOR: ISAURO HANDY COSIGNER: URGENCY: STATUS: COMPLETED Administrative Note/Primary Care Has ADDENDA Nursing: Please inform that recent ultrasound of the liver (ordered during PCP absence from clinic) did not show any masses/abnormal or suspicious lesions but there may be some fibrosis. Imaging was limited secondary to suboptimal penetration. Recomend continue to work on havinga low trans/saturated fat diet and little to no alcohol. I would recommend continued following up with PCP as well as routine liver function testing. No additional testing is needed at this time. PCP: added to this not so that they are aware of findings and discussion with patient below copied from imaging report for clinical reference--- Impression: Portions of liver are not well seen secondary to suboptimal penetration which limits examination. The liver demonstrates diffuse coarse echogenicity and diffuse increased echogenicity which can be seen with hepatic cirrhosis and hepatic fatty infiltration. Evaluation of hepatic stiffness suggests stage to fibrosis. /karla/ ISAURO ALCALA Signed: 01/11/2024 13:51 Receipt Acknowledged By: 01/12/2024 09:12 /karla/ ZAIRE LYNCH Registered Nurse 01/14/2024 12:34 /karla/ LAYTON GARCIA APRN 01/12/2024 ADDENDUM STATUS: COMPLETED Nursing: Please inform that recent ultrasound of the liver (ordered during PCP absence from clinic) did not show any masses/abnormal or suspicious lesions but there may be some fibrosis. Imaging was limited secondary to suboptimal penetration. Recomend continue to work on havinga low trans/saturated fat diet and little to no alcohol. I would recommend continued following up with PCP as well as routine liver function testing. No additional testing is needed at this time. Above is reviewed with . /karla/ ZAIRE LYNCH Registered Nurse Signed: 01/12/2024 09:13 GALENISAURO MARQUES [facility] Dec 06, 2023 02:03 PM PRIMARY CARE TELEP PAYTON ENCOUNTER NOTE: LOCAL TITLE: Telephone Note-Primary Care STANDARD TITLE: PRIMARY CARE TELEPHONE ENCOUNTER NOTE DATE OF NOTE: DEC 06, 2023@14:03 ENTRY DATE: DEC 06, 2023@14:03:58 AUTHOR: LAYTON GARCIA EXP COSIGNER: URGENCY: STATUS: COMPLETED Work Phone: Cell phone: ASSES/PLAN - # anxiety - Established with Caio WOO, thinks it is helpful - he will reach out to rechedule - tried sertraline did not help # diarrhea- unchanged normal for me , working on diet- has not changed much - start immodium once in am PRN, repeat prn as instructed on package # elevated LFTs - iron and ferretin normal, Hep C non reactive Hep A & B normal discussed liver US , will recheck LFTs if still elevated will get US #Meds: reviewed, reconciled #health Maint: vaccines reviewed: RTC - 6 months annual [x] open access [x] Counseling of patient/family dominates over 50% of this 15 minute telephone encounter HPI: Things are better than they have been. He was able to get SC 30% VSO is helping trying for increase. His girlfriends father - they were able to spend time with him in the hospital in [facility] during thier vacation. Still having diarrhea has not tried immodium, making diet changes, thinks this this is helping- hard to tell. Has trouble staying away from daily. Decreasing energy drinks. Still no weight loss, abdominal pain, blood in stools. Has always had frequent BMs but now stools are looser. No fam Hx colon cancer. Had elevated LFTs in the spring after his cruise- has not been drinking since (maybe 8 drinks since spring) HISTORY [employer] 2007 -2018 [...] Seatbelt use: y Smoke detectors:y Eye care: [facility] eye care Dental care: yes FH: Mother: alive age 50s heart problem myocardial vasospasms - 2 or 2 stents Father: alive age 62 CAGB 2020 T2DM Brother: two basically healthy except one brother had ED visit for stroke like symptoms no clear diagnosis - no hospital admission Sister: PMH: Active problems - Computerized Problem List is the source for the followin. Bursitis 2. Anxiety ([facility] [id number]) 3. Exposure to Potentially Hazardous Substance ([facility] [id number]) 4. Overweight SURGICAL HISTORY: MEDS: Active Outpatient Medications (excluding Supplies): Active Outpatient Medications Status 1) CHOLECALCIF 50MCG (D3-2,000UNIT) TAB TAKE ONE TABLET ACTIVE BY MOUTH ONCE DAILY FOR VITAMIN D DEFICIENCY WHEN HIGH DOSE COMPLETE Active Non-VA Medications Status 1) Non-VA LOPERAMIDE HCL 2MG CAP 2MG BY MOUTH NEEDED ACTIVE 2 Total Medications Outside VA meds: ALLERGIES: Patient has answered NKA ROS: as above OBJ: Exam: Psych: Normal affect and demeanor. normal speech pattern Neurological:Alert, oriented X3 Medication Reconciliation: Perform Medication Reconciliation JLV Link Data on this list may not be complete. Please check JLV. Allergies/ADRs (Tool #5) FACILITY ALLERGY/ADR -------- No Remote Allergy/ADR Data available for this patient JOAQUIN MCPHERSON Anthony [facility] No Known Allergies Med Vielka Pelletier (Tool #1) INCLUDED IN THIS LIST: Alphabetical list of active outpatient prescriptions dispensed from this CT (local) and dispensed from another CT or [facility] facility (remote) as well as inpatient orders (local pending and active), local clinic medications, locally documented non-VA medications, and local prescriptions that have or been discontinued in the past 90 days. Non-VA Meds Last Documented On: Sep 27, 2023 NOTE The display of VA prescriptions dispensed from another CT or [facility] facility (remote) is limited to active outpatient prescription entries matched to National Drug File at the originating site and may not include some items such as investigational drugs, compounds, etc. NOT INCLUDED IN THIS LIST: Medications self-entered by the patient into personal health records (i.e. [employer]) are NOT included in this list. Non-VA [...] D DEFICIENCY WHEN HIGH DOSE COMPLETE Rx# [id number] Last Released: 09/12/23 Qty/Days Supply: 100/90 Rx Expiration Date: 06/26/24 Refills Remainin Indication: FOR VITAMIN D DEFICIENCY OUTPT ERGOCALCIF 1,250MCG (D2-50,000UNIT) CAP (Status = ) TAKE ONE CAPSULE BY MOUTH ONCE A WEEK FOR VITAMIN D DEFICIENCY FOR 13 WEEKS Rx# [id number] Last Released: 06/27/23 Qty/Days Supply: Rx Expiration Date: 09/24/23 Refills Remainin Indication: FOR VITAMIN D DEFICIENCY Non-VA LOPERAMIDE HCL 2MG CAP TAKE 1 CAPSULE BY MOUTH NEEDED Patient wants to buy from Non-VA pharmacy. Indication: FOR DIARRHEA SUPPLIES Comments: The patient's Essential Medication List [...] medications or medication changes during this encounter. Info Only: VA Video Connect Capable: /karla/ LAYTON GARICA APRN Signed: 12/06/2023 14:21 LAYTON GARCIA [facility]
--- OUTSIDE RECORDS SUMMARY | 2024-04-17 20:57 | XMS_ITS | Encounter Summary ---
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 ROBLEDO MALENA ID Dec 18, 2020 [id number] CLAYTONTAZ PATIENT [facility] F.W. ROBLEDO MALENA ID Dec 18, 2020 [id number] TAZ ARNOLD PATIENT MAXORPLUS PRESCRIPT ION RX Dec 18, 2020 [id number] [phone] TAZ ARNOLD PATIENT Selected Encounter This section includes the information on record at [place] for the Encounter. Date/Time Encounter Type Encounter Description Reason Pro vider Source Oct 25, 2023 08:54 AM Outpatient Encounter PCMMN INDIV IHE Encounter Template Text not used by VA Plan of Treatment: Future Appointments (+ 6 months) and Future Tests (+/- 45 days) The Plan of Treatment section includes future care activities for the patient from all [place] treatmentfacilities. This section includes future appointments and future orders which are active, pending or scheduled. Future Appointments This section includes appointments that were scheduled to occur 6 months from the date of the Encounter, up to a maximum of 20 appointments. The data comes from all [place] treatment facilities. Appointment Date/Time Appointment Type Appointme nt Facility Name Dec 06, 2023 02:00 PM AMBULATORY - MEDICINE AMANDA MCPHERSON [facility] Dec 26, 2023 02:00 PM AMBULATORY - NONE [facility] Jan 05, 2024 08:15 AM AMBULATORY - NONE JOAQUIN ROLDAN [facility] Active, Pending, and Scheduled Orders This section includes a listing of several types of active, pending, and scheduled orders, including clinic medications orders, diagnostic test orders, procedure orders and consult orders; where the start date of the order is 45 days before the date of the Encounter or 45 days after the date of theEncounter. The data comes from all [facility]. Test Date/Time Test Type Test Details Facility Name Sep 18, 2023 12:00 AM Laboratory - Chemi stry Order LIVER PROFILE LT GREEN(LI HEP) PLASMA SP JOAQUIN MCPHERSON [facility] Encounter Notes: All associated encounter notes This section contains the clinical notes associated to the Encounter. Date/Time Encounter Note(s) Provider Source Oct 25, 2023 08:54 AM LETTERS: LOCAL TITLE: Letter to Patient - [place] STANDARD TITLE: LETTERS DATE OF NOTE: OCT 25, 2023@08:54 ENTRY DATE: OCT 25, 2023@08:54:43 AUTHOR: KWAN SALOMON EXP COSIGNER: URGENCY: STATUS: COMPLETED OCT 25, 2023 TAZ ARNOLD [address] [place] [id number] Margaret, I have been unsuccessful in trying to reach you by phone to reschedule you for a psychotherapy appointment. I would be happy to touch base and schedule an appointment with you at your earliest convenience if you are interested. Please don't hesitate to call if you have any questions or concerns, . Sincerely, [facility] - Psychotherapist [address] [place] [id number] KWAN SALOMON [facility]
--- OUTSIDE RECORDS SUMMARY | 2024-04-17 20:57 | XMS_ITS | Encounter Summary ---
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 ROBLEDO MALENA DE Dec 18, 2020 [id number] [phone] C[place]TA[place] PATIENT [facility] F.W. ROBLEDO MALENA DE Dec 18, 2020 [id number] TAZ ARNOLD PATIENT [facility] Dec 18, 2020 [id number] [phone] TAZ ARNOLD PATIENT Selected Encounter This section includes the information on record at [place] for the Encounter. Date/Time Encounter Type Encounter Description Reason Pro vider Source Oct 11, 2023 02:59 PM Outpatient Encounter PRIMARY CARE/MEDICINE [facility] Encounter Template Text not used by [facility] Plan of Treatment: Future Appointments (+ 6 months) and Future Tests (+/- 45 days) The Plan of Treatment section includes [facility] the [facility] [place] [facility] This section includes future appointments and [...] 02:00 PM AMBULATORY - MEDICINE [facility] Dec 26, 2023 02:00 PM AMBULATORY - NONE [facility] Jan 05, 2024 08:15 AM AMBULATORY - NONE [facility] Active, Pending, and Scheduled Orders This section includes a listing of several types of active, pending, and scheduled orders, including clinic medications orders, diagnostic test orders, procedure orders and consult orders; where the start date of the order is 45 days before the date of the Encounter or 45 days after the date of theEncounter. The data comes from all [facility]. Test Date/Time Test Type Test Details Facility Name Sep 18, 2023 12:00 AM Laboratory - Chemi stry Order LIVER PROFILE LT GREEN(LI HEP) PLASMA SP [facility] Encounter Notes: All associated encounter notes This section contains the clinical notes associated to the Encounter. Date/Time Encounter Note(s) Provider Source Oct 05, 2023 02:59 PM [facility] NOTE: LOCAL TITLE: [facility] Medical Records STANDARD TITLE: [facility] NOTE DATE OF NOTE: OCT 05, 2023@14:59 ENTRY DATE: OCT 11, 2023@14:59:18 AUTHOR: RISHI PANDA EXP COSIGNER: URGENCY: STATUS: COMPLETED [facility] REC[facility] DEPARTMENT ED Visit Note Discharge Plan Disposition Patient Disposition: [place] Condition: Good Discharge Details Clinical Impression: Bursitis, prepatellar, left Primary Care Provider: None,None ED Provider: Sofie Rogers Home Meds and New Rx's Prescriptions: New clindamycin HCl 300 mg Capsule 450 mg PO TID 7 Days Qty: 32 ORF dexamethasone 4 mg Tablet 8 mg PO NOW 3 Days Qty: 6 ORF Discontinued cephalexin 500 mg capsule 500 mg PO TID Additional Instructions: Please call your primary care provider first thing in the morning to schedule follow-up appointment for reassessment. A referral to physical therapy may be necessary if you are not feeling significantly better in the next week or so. I have changed her antibiotic to clindamycin. Please take as prescribed. I recommend that you use yogurt such as Activia with each dose to prevent antibiotic associated diarrhea. You may use ibuprofen 60D mg every 8 hours as needed for discomfort. Return to emergency care if you develop worsening redness/streaking up the leg, fever/ chills, general malaise, distal numbness/tingling, difficulty bending the knee, or If you are very worried and need to be rechecked again irnmediately HPI General Date/Time Provider Initiated Documentation: .11/10 13:57 . HPI Narrative: Taz is a 32-year-old male who presents to the emergency department today for evaluation of continued redness/swelling/discomfort to left knee. He reports that 2 weeks ago he scraped his knee on a truck hitch, had no problems for the next week and a half, but over the weekend he was walking around a lot and cutting trees. No known trauma to the knee. Monday morning he woke up with redness/swelling/mild discomfort to the left knee, rated 1 out of 10. He was seen in urgent care in [place], diagnosed with infectious bursitis and given 1 g ceftrlaxone as well as Keflex. He Is concerned because he was told to come back to care if symptoms did not get significantly better in a couple of days. He denies associated fever/chills, general malaise, nausea/vomiting, abdorninal pain, change in bowel or bladder function, other rashes or joint/muscle pains, difficulty walking, decreased range of motion, distal numbness/tingling. No history of immunocampromise, diabetes, IVDU, or antibiotic resistant infections. Physical exam remarkable for mild swelling/erythema/warmth to left knee, full painless range of motion to knee. Mild crepitus noted with palpation of knee. Distal pulses intact. Normal gait, Patient is alert and interactive, no acute distress. DDx includes but is not limited to: cellulitis, Prepatellar bursitis, gout, inflammatory arthritis, fracture less likely. No red flags concerning for septic arthritis at this time. Dr. Morales also to bedside to evaluate knee, aspiration not Indicated at this time. I independently interpreted the following tests: CBC unremarkable. Sed rate and CRP both elevated. Knee x-ray unremarkable, only prepatellar soft tissue swelling rioted,consistent with prepatellar bursitis. History and presentation consistent with prepatellar bursitis. Will treat with clindamycin to enhance coverage and short course of steroids for Inflammation. Recommend follow-up with PCP if symptoms not significantly improved, as orthopedics referral may be indicated. Nutritional Appearance: average body habitus Resp Effort & Inspection: normal respiratory effort and able to speak in complete sentences Skin Trauma : abrasion (L knee) Extrem Right lower extremity: normal to inspection Left lower extremity: full ROM, normal capillary refill, no joint enlargement and knee Details: tenderness, swelling (prepatellar), normal ROM and abrasion (small healed abrasion noted to distal knee); no lacerations, no foreign bodies, no penetrating wound and no deformity Medical Decision Making Imaging Data Radiologic Study: Radiologist's impression: Exam(s) XR KNEE LT 4V AP,LAT,SPENSER,PAT EXAM: XR KNEE LT 4V AP,LAT,SPENSER,PAT CLINICAL HISTORY: knee pain, redness, swelling. TECHNIQUE: 2D digital imaging was performed. Three views, COMPARISON: No exams were available for comparison FINDINGS: BONES: No acute fracture Is present. No bony destructive lesion Is seen. JOINTS: The knee is normally aligned. No joint effusion is seen. Joint spaces are maintained. No degenerative changes. SOFT TISSUE: Edema, greatest anterior to patella. This could indicate prepatellar bursitis. No abnormal gas collection or foreign body. IMPRESSION: Prepatellar soft tissue swelling. No bony abnormality. LABS ESR 31 WBC 9.12 RBC 5.03 HGB 15.5 HCT 45.7 /karla/ RISHI PANDA LPN Signed: 10/11/2023 15:02 Receipt Acknowledged By: 10/11/2023 15:10 /karla/ RISHI HARDY [facility]N [facility]
== END 2024-04-17 20:55 | disposition home or self-care (01) ==
LOC: LBN 20:54
PROVIDERS: Visit Provider Physician Assistant Medical
DX: J02.9 Acute pharyngitis, unspecified (principal)
CPT/HCPCS: 87070